=== PATIENT | male | born 1940 | race Caucasian/White ===

== ENCOUNTER → 2018-08-17 | Outpatient (CLI) | payer MEDICARE ==
--- NOTE | 2018-08-17 16:09 | CT ---
EXAMINATION TYPE: CT brain wo/w con DATE OF EXAM: 08/17/2018 COMPARISON: Prior head CT 11/28/2012 HISTORY: Possible stroke, decreased visual Field CT DLP: 2256 mGycm Automated exposure control for dose reduction was used. CONTRAST: CT scan of the head is performed without and with IV Contrast, patient injected with 100 mL of Isovue 300. FINDINGS: There is no abnormal enhancing mass or midline shift identified. The ventricles and sulci are within normal limits in size. Cortical atrophy is again noted. White matter demyelination changes are again seen. There is some encephalomalacia posterior occipital lobe on the right as on prior exam. The annabel bes are intact and the visualized sinuses are remarkable for mucosal disease within the maxillary sin uses, no air-fluid levels. No abnormal enhancement following contrast administration. Cerebral vascul ar calcifications are present. IMPRESSION: Age-related changes of atrophy and chronic small vessel ischemia. Fold infarct suspected in the occip ital lobe on the right. Sinus disease.
== END | disposition home or self-care (01) ==
LOC: RADCTMAIN 12:51
PROVIDERS: ATTEND Ophthalmology
DX: G31.1 Senile degeneration of brain, not elsewhere classified (principal); I67.82 Cerebral ischemia
CPT/HCPCS: 82565; 84520; 70470; 36415; Q9967

== ENCOUNTER 2019-03-28 06:49 | Day surgery (SDC) | payer MEDICARE ==
[2019-03-26 13:52] VITALS: BMI 26.1
[~2019-03-28 06:49] MED LIST: DEXAMETHASONE SOD PHOSPHATE 10 MG/ML 1 ML VIAL IV ONE; HEPARIN SODIUM,PORCINE 5,000 UNIT/ML 1 ML VIAL SQ ONE; HYDROmorphone 0.5 MG/0.5 ML SYRINGE IVP PRN; LACTATED RINGERS 1,000 ML IV SCH; LIDOCAINE 1% 20 ML VIAL (10MG/ML) FOR IV START INTRADERMA PRN; MIDAZOLAM 2 MG/2 ML VIAL IV PRN; ONDANSETRON 4 MG/2 ML VIAL IVP ONE; SCOPOLAMINE 1.5MG/72HR PATCH TRANSDERM ONE
[2019-03-28] MEDS ORDERED: LACTATED RINGERS 1,000 ML IV ONE (07:26)
--- NOTE | 2019-03-28 07:56 | P.GSHP ---
History of Present Illness H&P Date: 03/28/19 Chief Complaint: right inguinal hernia patient here today for right inguinal hernia repair. Bulge in the right groin has been bothering him for a while. Occasional episodes of intense pain. No nausea or vomiting. Required manual reduction by his urologist recently. Inte rested in operative repair. Past Medical History Past Medical History: Cancer, GERD/Reflux, Hyperlipidemia, Hypertension Additional Past Medical History / Comment(s): shingles few yrs ago-still w/residual leg pain, tremors, hx. prostate cancer 2004 w/radiation tx., short of breath History of Any Multi-Drug Resistant Organisms: None Reported Past Surgical History: Cholecystectomy, Coronary Bypass/CABG, Hernia Repair, Joint Replacement, Orthopedic Surgery Additional Past Surgical History / Comment(s): valve repair, right knee replaced, right shoulder surg. x 2 Past Anesthesia/Blood Transfusion Reactions: Previous Problems w/ Anesthesia Additional Past Anesthesia/Blood Transfusion Reaction / Comment(s): confusion after waking from anesthesia, day after cholycystectomy experienced low blood pressure adm to ICU received 2 units of plasma and whole blood Smoking Status: Former smoker - Past Family History Mother Family Medical History: No Reported History Medications and Allergies Home Medications Medication Instructions Recorded Confirmed Type Aspirin 325 mg PO DAILY 08/01/15 03/26/19 History Atorvastatin [Lipitor] 80 mg PO HS 08/01/15 03/26/19 History Furosemide [Lasix] 40 mg PO MOWEFR 08/01/15 03/26/19 History Krill Oil 350 mg PO DAILY 08/01/15 03/26/19 History Naproxen Sodium [Aleve] 220 mg PO BID 08/01/15 03/26/19 History Potassium Chloride [Klor-Con 20] 20 meq PO MOWEFR 08/01/15 03/26/19 History Pregabalin [Lyrica] 75 mg PO BID 08/01/15 03/26/19 History Primidone [Mysoline] 100 mg PO BID 08/01/15 03/26/19 History amLODIPine/VALSARTAN [Exforge 1 tab PO DAILY 08/01/15 03/26/19 History 5-160 mg Tablet] Latanoprost Ophth [Xalatan 0.005%] 1 drops BOTH EYES DAILY 03/26/19 03/26/19 History Metoprolol Tartrate [Lopressor] 25 mg PO BID 03/26/19 03/26/19 History Omeprazole [PriLOSEC] 40 mg PO DAILY 03/26/19 03/26/19 History Propylene Glycol/Peg 400/Pf 1 dropper BOTH EYES DAILY 03/26/19 03/26/19 History [Systane 0.3-0.4% Eye Drops] Timolol Maleate/Latanoprost/Pf 1 drop BOTH EYES DAILY 03/26/19 03/26/19 History [Timolol 0.5%-Latanopros 0.005%] Vit C/E/Zn/Coppr/Lutein/Zeaxan 2 each PO DAILY 03/26/19 03/26/19 History [Preservision Areds 2 Softgel] Allergies Allergy/AdvReac Type Severity Reaction Status Date / Time No Known Allergies Allergy Verified 03/26/19 13:36 Surgical - Exam Vital Signs Temp Pulse Resp BP Pulse Ox 997.4 F H 55 L 18 191/93 95 03/28/19 07:10 03/28/19 07:10 03/28/19 07:10 03/28/19 07:10 03/28/19 07:10 Physical exam: General: Well-developed, well-nourished HEENT: Normocephalic, sclerae nonicteric Abdomen: Nontender, nondistended, reducible right inguinal hernia Extremities: No edema Neuro: Alert and oriented Assessment and Plan (1) Inguinal hernia Narrative/Plan: Will proceed with right inguinal hernia repair at this time. Risks of bleeding, infection, recurrence, bladder and bowel injury, numbness, nerve injury were discussed with the patient. The patient understands and wishes to proceed. Current Visit: Yes Status: Acute Code(s): K40.90 - UNIL INGUINAL HERNIA, W/O OBST OR GANGR, NOT SPCF RECUR SNOMED Code(s): 349018024
[2019-03-28] MEDS ORDERED: fentaNYL (PF) 50 MCG/ML 2 ML AMP IVP ONE (08:05)
[2019-03-28] MEDS ORDERED: ePHEDrine SULFATE/0.9% NACL/PF 50 MG/5 ML SYRINGE IV ONE (08:15)
[2019-03-28] MEDS ORDERED: DEXAMETHASONE SOD PHOSPHATE 4 MG/ML 1 ML VIAL ONE (08:15)
[2019-03-28] MEDS ORDERED: ROPIVACAINE 5 MG/ML 30 ML VIAL ONE (08:15)
[2019-03-28 09:48] VITALS: TEMP 98.1
[2019-03-28] MEDS ORDERED: HYDROcodone/APAP 5-325MG 1 EACH TAB PO PRN (10:17)
[2019-03-28] MEDS ORDERED: NALOXONE 0.4 MG/ML 1 ML VIAL IV PRN (10:17)
--- NOTE | 2019-03-28 10:24 | P.OP ---
Date of Procedure: 03/28/19 Procedure(s) Performed: PREOPERATIVE DIAGNOSIS: Right inguinal hernia POSTOPERATIVE DIAGNOSIS: Same, right femoral hernia PROCEDURE: Right inguinal hernia repair with mesh, right femoral hernia repair with mesh SURGEON: Wilda EBL: Minimal ANESTHESIA: General COMPLICATIONS: None OPERATIVE PROCEDURE: Patient was placed in the operating table in the supine position and placed under general anesthesia. An oblique incision was made in the 8 groin. Dissection down through the subcutaneous tissues took place using electrocautery. The external oblique fascia was incised using a scalpel. This opening was lengthened using the Metzenbaum scissors. The spermatic cord was encircled with a [place] drain. The structures were identified and preserved. Careful dissection revealed lipoma of the cord. There was no definitive hernia sac seen. The patient did have a laxity at the direct space. No protruding hernia was seen however. A 3" x 6" Prolene mesh was cut to fit on the exposed fascia. This was sutured to the pubic tubercle the folding edge of the inguinal ligament and the conjoined tendon. A slit was created in the mesh and the mesh was wrapped around the spermatic cord and sutured back to itself. The external oblique was then reapproximated using a running 2-0 Vicryl suture. I then di ssected in the femoral space. In doing so a femoral hernia was quickly identified. This femoral hernia was dissected back to the femoral space. A portion of the preperitoneal fat was excised. The sac itself was reduced back into the preperitoneal space. The previously used Prolene mesh was utilized. This was rolled into a small plug. Is placed within the femoral space and sutured to the inguinal ligament anteriorly and Willy's ligament posteriorly. The subcutaneous tissues were reapproximated using a 3-0 Vicryl sutures. The skin was closed using 4-0 Monocryl sutures. Skin glue was then applied. DISPOSITION: Stable to recovery room
[2019-03-28 10:47] VITALS: RESP 16
[2019-03-28] MEDS ORDERED: HYDROcodone/APAP 5-325MG 1 EACH TAB PO ONE (11:13)
--- NOTE | 2019-03-28 12:48 | P.ANPRN ---
Procedure Note - Anesthesia - Nerve Block Performed Right Other (see comment) Single Time Out Performed: Yes (ilioinguinal nerve block) Date of Procedure: 03/28/19 Procedure Start Time: : Procedure Stop Time: :17 Location of Patient: PreOp Indication: Acute Post-Operative Pain, Requested by Surgeon Sedation Type: Sedate with meaningful contact maintained Preparation: Sterile Prep Position: Supine Catheter: None Needle Types: Pajunk Needle Gauge: 21 Ultrasound used to visualize needle placement: Yes Ultrasound used to observe medication spread: Yes Injectate: Other (see comment) (ropivacaine 0.375% 20 cc + decadron 4mg) Blood Aspirated: No Pain Paresthesia on Injection Noted: No Resistance on Injection: Normal Image Stored and Saved: Yes Events: Uneventful and Well Tolerated
[2019-03-28 12:57] VITALS: PULSE 65
[2019-03-28 13:01] VITALS: BP 163/87
== END 2019-03-28 13:00 | disposition home or self-care (01) ==
LOC: OR 06:49
PROVIDERS: ATTEND Surgery
DX: K40.90 Unilateral inguinal hernia, without obstruction or gangrene, not specified as recurrent (principal); K41.90 Unilateral femoral hernia, without obstruction or gangrene, not specified as recurrent; M19.90 Unspecified osteoarthritis, unspecified site; I10 Essential (primary) hypertension; E78.5 Hyperlipidemia, unspecified; K21.9 Gastro-esophageal reflux disease without esophagitis; R25.1 Tremor, unspecified; D17.79 Benign lipomatous neoplasm of other sites; Z98.890 Other specified postprocedural states; Z90.49 Acquired absence of other specified parts of digestive tract; Z86.19 Personal history of other infectious and parasitic diseases; Z95.1 Presence of aortocoronary bypass graft; Z85.46 Personal history of malignant neoplasm of prostate; Z92.3 Personal history of irradiation; Z96.651 Presence of right artificial knee joint; Z87.891 Personal history of nicotine dependence; Z79.82 Long term (current) use of aspirin; Z79.1 Long term (current) use of non-steroidal anti-inflammatories (NSAID); Z79.899 Other long term (current) drug therapy
CPT/HCPCS: 49505; 49550; 76942 ×2; 64425; 88302; C1781; J1644; J1100 ×2; J0690; J2405; J3010; J2795; 64493

== ENCOUNTER 2019-12-08 15:15 | Emergency (ER) | payer MEDICARE ==
[2019-12-08 15:23] VITALS: RESP 18; TEMP 98
--- NOTE | 2019-12-08 15:28 | ED ---
General Adult HPI - General Chief complaint: Neuro Symptoms/Deficit Stated complaint: Confusion Time Seen by Provider: 12/08/19 15:25 Source: patient, family Mode of arrival: ambulatory Limitations: language barrier - History of Present Illness Initial comments: Patient presents the ED with his for evaluation. Per , the patient has had trouble forming his words since he awoke this morning. Per , the patient did not have any issues with his speech prior to going to bed last night. also states that the patient seems to be confused at times today. states that the patient was having trouble figuring out how to place his hearing aids today. denies known trauma or injury, fever, cough or cold symptoms, vomiting, difficulty breathing, new medication use, recent change in medications, or any other symptoms or complaints. Patient denies having any pain. Patient is complaining of having trouble speaking. History from the patient is otherwise very limited secondary to expressive aphasia. states that the patient does have a history of a TIA in the past. Code stroke was called after my initial evaluation the patient. - Related Data Home Medications Medication Instructions Recorded Confirmed Aspirin 325 mg PO HS 08/01/15 12/08/19 Furosemide [Lasix] 40 mg PO MOWEFR@0900 08/01/15 12/08/19 Naproxen Sodium [Aleve] 220 mg PO BID 08/01/15 12/08/19 Potassium Chloride [Klor-Con 20] 20 meq PO MOWEFR@0900 08/01/15 12/08/19 Pregabalin [Lyrica] 75 mg PO BID 08/01/15 12/08/19 Primidone [Mysoline] 100 mg PO BID 08/01/15 12/08/19 amLODIPine/VALSARTAN [Exforge 1 tab PO DAILY 08/01/15 12/08/19 5-160 mg Tablet] Latanoprost Ophth [Xalatan 0.005%] 1 drop BOTH EYES DAILY 03/26/19 12/08/19 Metoprolol Tartrate [Lopressor] 25 mg PO BID 03/26/19 12/08/19 Omeprazole [PriLOSEC] 40 mg PO DAILY 03/26/19 12/08/19 Propylene Glycol/Peg 400/Pf 1 drop BOTH EYES HS 03/26/19 12/08/19 [Systane 0.3-0.4% Eye Drops] Vit C/E/Zn/Coppr/Lutein/Zeaxan 1 cap PO BID 03/26/19 12/08/19 [Preservision Areds 2 Softgel] Aspirin 325 mg PO ONCE 12/08/19 12/08/19 Atorvastatin [Lipitor] 80 mg PO HS 12/08/19 12/08/19 Krill/[place]-3/Dha/Epa/Lipids 1 cap PO HS 12/08/19 12/08/19 [Krill Oil 350 mg Softgel] Prevident 0.2% Oral Rinse 15 ml PO AC-LUNCH 12/08/19 12/08/19 Timolol 0.5% Ophth Soln [Timoptic 1 drop BOTH EYES DAILY 12/08/19 12/08/19 0.5% Ophth Soln] Allergies Allergy/AdvReac Type Severity Reaction Status Date / Time No Known Allergies Allergy Verified 12/08/19 16:16 Review of Systems ROS Statement: Those systems with pertinent positive or pertinent negative responses have been documented in the HPI. ROS Other: All systems not noted in ROS Statement are negative. Limitations: ROS unobtainable due to patients medical condition Past Medical History Past Medical History: Cancer, CVA/TIA, GERD/Reflux, Hyperlipidemia, Hypertension Additional Past Medical History / Comment(s): shingles few yrs ago-still w/residual leg pain, tremors, hx. prostate cancer 2004 w/radiation tx., short of breath History of Any Multi-Drug Resistant Organisms: None Reported Past Surgical History: Cholecystectomy, Coronary Bypass/CABG, Hernia Repair, Joint Replacement, Orthopedic Surgery Additional Past Surgical History / Comment(s): valve repair, right knee replaced, right shoulder surg. x 2 Past Anesthesia/Blood Transfusion Reactions: Previous Problems w/ Anesthesia Additional Past Anesthesia/Blood Transfusion Reaction / Comment(s): confusion after waking from anesthesia, day after cholycystectomy experienced low blood pressure adm to ICU received 2 units of plasma and whole blood Past Psychological History: Depression Smoking Status: Former smoker Past Alcohol Use History: Occasional Past Drug Use History: None Reported - Past Family History Mother Family Medical History: No Reported History General Exam Limitations: language barrier General appearance: alert, in no apparent distress Head exam: Present: atraumatic, normocephalic Eye exam: Present: normal appearance, PERRL, EOMI ENT exam: Present: normal oropharynx, mucous membranes moist Neck exam: Present: other (Trachea is in midline; no nuchal rigidity or meningeal signs are present on exam). Absent: tenderness, meningismus Respiratory exam: Present: normal lung sounds bilaterally. Absent: respiratory distress, wheezes, rales, rhonchi Cardiovascular Exam: Present: normal rhythm, bradycardia, normal heart sounds, other (Normal radial pulses bilaterally) GI/Abdominal exam: Present: soft. Absent: distended, tenderness, guarding Extremities exam: Present: full ROM. Absent: tenderness, pedal edema, calf tenderness Back exam: Present: normal inspection Neurological exam: Present: alert, CN II-XII intact, other (Expressive aphasia; NIH stroke scale score = 5). Absent: motor sensory deficit Skin exam: Present: warm, dry, intact, normal color Course Vital Signs 12/08/19 12/08/19 12/08/19 15:20 16:01 16:33 Temperature 98.0 F Pulse Rate 50 L 51 L 50 L Respiratory 18 18 18 Rate Blood Pressure 160/70 175/82 192/88 O2 Sat by Pulse 96 97 97 Oximetry - Reevaluation(s) Reevaluation #1: 12/08/19 15:45 Case and H&P were discussed with Dr. Schultz (neurointerventionalist). He recommends ordering a noncontrast head CT and CT angiograms of head and neck. He states that he will follow-up on the results. He has no further recommendations at this time. 12/08/19 16:05 Dr. Schultz (neurointerventionalist) states that he has reviewed the patient's imaging studies. He states that there is no large vessel occlusion. He recommends aspirin and Lipitor. He recommends transfer to [facility] given that there is no neurology coverage here this weekend. He has no further recommendations at this time. 12/08/19 16:43 Patient continues to have expressive aphasia, and his neurological exam is unchanged. Patient remains alert and breathing comfortably. Patient and are aware of the patient's test results and my discussions with Dr. Schultz as above. They both agree with transfer to [facility] at this time given that we don't have neurology coverage here at this time. 12/08/19 16:57 Case, H&P, test results, my discussions with Dr. Schultz as above and ED management were discussed with Dr. Millan (ED physician at [facility]). He accepts ambulance transfer to the [facility] ED at this time. He has no further recommendations at this time. EKG Findings - EKG Comments: EKG Findings:: Sinus bradycardia with first-degree AV block, ventricular rate of 55 bpm, occasional PVCs, leftward axis, LVH with prolonged QRS duration of 130 ms, SD interval of 206 ms, normal QT interval, no ST or T-wave abnormality Medical Decision Making - Medical Decision Making Patient has symptoms (expressive aphasia and confusion) and CT findings consistent with acute/subacute CVA. Patient is not a TPA candidate. Patient has no large vessel occlusion seen on CT angiograms. Patient was given a dose of aspirin and Lipitor and ED. Dr. Schultz (neurointerventionalist) was consulted, and he recommends transfer to [facility] for admission and further evaluation given lack of neurology coverage here at this time. Transfer to the [facility] ED was accepted by Dr. Millan (ED physician). - Lab Data Result diagrams: 12/08/19 15:42 12/08/19 15:42 Lab Results 12/08/19 12/08/19 12/08/19 Range/Units 15:28 15:42 15:42 WBC 6.4 (3.8-10.6) k/uL RBC 3.93 L (4.30-5.90) m/uL Hgb 12.8 L (13.0-17.5) gm/dL Hct 39.0 (39.0-53.0) % MCV 99.1 (80.0-100.0) fL MCH 32.5 (25.0-35.0) pg MCHC 32.8 (31.0-37.0) g/dL RDW 13.8 (11.5-15.5) % Plt Count 200 (150-450) k/uL Neutrophils % 59 % Lymphocytes % 25 % Monocytes % 8 % Eosinophils % 4 % Basophils % 1 % Neutrophils # 3.7 (1.3-7.7) k/uL Lymphocytes # 1.6 (1.0-4.8) k/uL Monocytes # 0.5 (0-1.0) k/uL Eosinophils # 0.3 (0-0.7) k/uL Basophils # 0.0 (0-0.2) k/uL PT 10.2 (9.0-12.0) sec INR 1.0 (<1.2) APTT 25.6 (22.0-30.0) sec Sodium (137-145) mmol/L Potassium (3.5-5.1) mmol/L Chloride (98-107) mmol/L Carbon Dioxide (22-30) mmol/L Anion Gap mmol/L BUN (9-20) mg/dL Creatinine (0.66-1.25) mg/dL Est GFR (CKD-EPI)AfAm (>60 ml/min/1.73 sqM) Est GFR (CKD-EPI)NonAf (>60 ml/min/1.73 sqM) Glucose (74-99) mg/dL POC Glucose (mg/dL) (75-99) mg/dL POC Glu American Studies Professor ID Calcium (8.4-10.2) mg/dL Magnesium (1.6-2.3) mg/dL Total Bilirubin (0.2-1.3) mg/dL AST (17-59) U/L ALT (4-49) U/L Alkaline Phosphatase (38-126) U/L Total Creatine Kinase (55-170) U/L CK-MB (CK-2) (0.0-2.4) ng/mL CK-MB (CK-2) Rel Index Troponin I (0.000-0.034) ng/mL NT-Pro-B Natriuret Pep 857 pg/mL Total Protein (6.3-8.2) g/dL Albumin (3.5-5.0) g/dL TSH (0.465-4.680) mIU/L Urine Color Urine Appearance (Clear) Urine pH (5.0-8.0) Ur Specific [place] (1.001-1.035) Urine Protein (Negative) Urine Glucose (UA) (Negative) Urine Ketones (Negative) Urine Blood (Negative) Urine Nitrite (Negative) Urine Bilirubin (Negative) Urine Urobilinogen (<2.0) mg/dL Ur Leukocyte Esterase (Negative) Serum Alcohol mg/dL 12/08/19 12/08/19 12/08/19 Range/Units 15:42 15:42 15:42 WBC (3.8-10.6) k/uL RBC (4.30-5.90) m/uL Hgb (13.0-17.5) gm/dL Hct (39.0-53.0) % MCV (80.0-100.0) fL MCH (25.0-35.0) pg MCHC (31.0-37.0) g/dL RDW (11.5-15.5) % Plt Count (150-450) k/uL Neutrophils % % Lymphocytes % % Monocytes % % Eosinophils % % Basophils % % Neutrophils # (1.3-7.7) k/uL Lymphocytes # (1.0-4.8) k/uL Monocytes # (0-1.0) k/uL Eosinophils # (0-0.7) k/uL Basophils # (0-0.2) k/uL PT (9.0-12.0) sec INR (<1.2) APTT (22.0-30.0) sec Sodium 133 L (137-145) mmol/L Potassium 5.1 (3.5-5.1) mmol/L Chloride 99 (98-107) mmol/L Carbon Dioxide 24 (22-30) mmol/L Anion Gap 10 mmol/L BUN 31 H (9-20) mg/dL Creatinine 1.17 (0.66-1.25) mg/dL Est GFR (CKD-EPI)AfAm 67 (>60 ml/min/1.73 sqM) Est GFR (CKD-EPI)NonAf 58 (>60 ml/min/1.73 sqM) Glucose 96 (74-99) mg/dL POC Glucose (mg/dL) (75-99) mg/dL POC Glu American Studies Professor ID Calcium 8.7 (8.4-10.2) mg/dL Magnesium 2.1 (1.6-2.3) mg/dL Total Bilirubin 0.4 (0.2-1.3) mg/dL AST 23 (17-59) U/L ALT 13 (4-49) U/L Alkaline Phosphatase 98 (38-126) U/L Total Creatine Kinase 61 (55-170) U/L CK-MB (CK-2) 0.6 (0.0-2.4) ng/mL CK-MB (CK-2) Rel Index 1.0 Troponin I <0.012 (0.000-0.034) ng/mL NT-Pro-B Natriuret Pep pg/mL Total Protein 6.7 (6.3-8.2) g/dL Albumin 4.2 (3.5-5.0) g/dL TSH 1.100 (0.465-4.680) mIU/L Urine Color Light Yellow Urine Appearance Clear (Clear) Urine pH 7.0 (5.0-8.0) Ur Specific [place] 1.014 (1.001-1.035) Urine Protein Negative (Negative) Urine Glucose (UA) Negative (Negative) Urine Ketones Negative (Negative) Urine Blood Negative (Negative) Urine Nitrite Negative (Negative) Urine Bilirubin Negative (Negative) Urine Urobilinogen <2.0 (<2.0) mg/dL Ur Leukocyte Esterase Negative (Negative) Serum Alcohol <10 mg/dL 12/08/19 Range/Units 15:54 WBC (3.8-10.6) k/uL RBC (4.30-5.90) m/uL Hgb (13.0-17.5) gm/dL Hct (39.0-53.0) % MCV (80.0-100.0) fL MCH (25.0-35.0) pg MCHC (31.0-37.0) g/dL RDW (11.5-15.5) % Plt Count (150-450) k/uL Neutrophils % % Lymphocytes % % Monocytes % % Eosinophils % % Basophils % % Neutrophils # (1.3-7.7) k/uL Lymphocytes # (1.0-4.8) k/uL Monocytes # (0-1.0) k/uL Eosinophils # (0-0.7) k/uL Basophils # (0-0.2) k/uL PT (9.0-12.0) sec INR (<1.2) APTT (22.0-30.0) sec Sodium (137-145) mmol/L Potassium (3.5-5.1) mmol/L Chloride (98-107) mmol/L Carbon Dioxide (22-30) mmol/L Anion Gap mmol/L BUN (9-20) mg/dL Creatinine (0.66-1.25) mg/dL Est GFR (CKD-EPI)AfAm (>60 ml/min/1.73 sqM) Est GFR (CKD-EPI)NonAf (>60 ml/min/1.73 sqM) Glucose (74-99) mg/dL POC Glucose (mg/dL) 101 H (75-99) mg/dL POC Glu American Studies Professor Brendan Stewart Calcium (8.4-10.2) mg/dL Magnesium (1.6-2.3) mg/dL Total Bilirubin (0.2-1.3) mg/dL AST (17-59) U/L ALT (4-49) U/L Alkaline Phosphatase (38-126) U/L Total Creatine Kinase (55-170) U/L CK-MB (CK-2) (0.0-2.4) ng/mL CK-MB (CK-2) Rel Index Troponin I (0.000-0.034) ng/mL NT-Pro-B Natriuret Pep pg/mL Total Protein (6.3-8.2) g/dL Albumin (3.5-5.0) g/dL TSH (0.465-4.680) mIU/L Urine Color Urine Appearance (Clear) Urine pH (5.0-8.0) Ur Specific [place] (1.001-1.035) Urine Protein (Negative) Urine Glucose (UA) (Negative) Urine Ketones (Negative) Urine Blood (Negative) Urine Nitrite (Negative) Urine Bilirubin (Negative) Urine Urobilinogen (<2.0) mg/dL Ur Leukocyte Esterase (Negative) Serum Alcohol mg/dL - Radiology Data Radiology results: report reviewed (Noncontrast head CT report: Cerebral atrophy, old right occipital lobe cortical infarct unchanged, there is evidence of subacute left posterior temporal lobe cortical infarct which is a change compared to old CT scan; CT angiogram head and neck report: Atheromatous changes, no evidence of hemodynamic stenosis of the carotid or vertebral arteries, no significant intracranial angiographic abnormality), image reviewed (Chest x-ray shows cardiomegaly and mild bilateral pulmonary vascular congestion) Disposition Clinical Impression: Expressive aphasia, Confusion, CVA (cerebral vascular accident) Disposition: OTHER INSTITUTION NOT DEFINED Condition: Stable Is patient prescribed a controlled substance at d/c from ED?: No Referrals: Gerald Garza MD [Primary Care Provider] - 1-2 days Time of Disposition: 16:57 - Out of Hospital Transfer - Req. Specs Out of Hospital Transfer - Requested Specifics: Other Emergency Center ([facility])
[2019-12-08 15:55] LABS: Basophils % (A) 1 %; Eosinophils # (A) 0.3 k/uL (0-0.7); Eosinophils % (A) 4 %; HGB 12.8 gm/dL (13.0-17.5); Lymphocytes # (A) 1.6 k/uL (1.0-4.8); Lymphocytes % (A) 25 %; MCH 32.5 pg (25.0-35.0); MCHC 32.8 g/dL (31.0-37.0); MCV 99.1 fL (80.0-100.0); Mean Platelet Volume 7.8; Monocytes # (A) 0.5 k/uL (0-1.0); Monocytes % (A) 8 %; Neutrophils # (A) 3.7 k/uL (1.3-7.7); Neutrophils % (A) 59 %; Platelet Count 200 k/uL (150-450); RBC 3.93 m/uL (4.30-5.90); RDW 13.8 % (11.5-15.5); WBC 6.4 k/uL (3.8-10.6)
[2019-12-08 15:55] LABS: Glucose,Whole Blood 101 mg/dL (75-99)
[2019-12-08 16:03] LABS: Partial Thromboplastin Time 25.6 sec (22.0-30.0); Prothrombin Time 10.2 sec (9.0-12.0)
--- NOTE | 2019-12-08 16:04 | CT ---
EXAMINATION TYPE: CT brain wo con for TPA DATE OF EXAM: 12/08/2019 COMPARISON: August 17, 2018 HISTORY: Neuro deficits. CT DLP: 1175.8 mGycm Automated exposure control for dose reduction was used. There is cerebral cortical atrophy. There is no mass effect nor midline shift. There is no sign of in tracranial hemorrhage. There is grade white matter hypodensity left posterior temporal lobe. There is also cortical hypodensity that appears old in the right occipital lobe. The calvarium is intact. The re is enlargement of the ventricles. IMPRESSION: Cerebral atrophy. 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 There is evidence of subacute left posterior temporal lobe cortical infarct which is a change compare d to old CT scan.
[2019-12-08 16:05] LABS: Creatine Kinase 61 U/L (55-170)
[2019-12-08 16:06] LABS: ALT 13 U/L (4-49); AST 23 U/L (17-59); African American GFR (CKD) 67 (>60 ml/min/1.73 sqM); Albumin 4.2 g/dL (3.5-5.0); Alcohol <10 mg/dL; Alkaline Phosphatase 98 U/L (38-126); Anion Gap 10 mmol/L; Blood Urea Nitrogen 31 mg/dL (9-20); Calcium 8.7 mg/dL (8.4-10.2); Carbon Dioxide 24 mmol/L (22-30); Chloride 99 mmol/L (98-107); Glucose 96 mg/dL (74-99); Magnesium 2.1 mg/dL (1.6-2.3); Non-African American GFR(CKD) 58 (>60 ml/min/1.73 sqM); Potassium 5.1 mmol/L (3.5-5.1); Sodium 133 mmol/L (137-145); Total Bilirubin 0.4 mg/dL (0.2-1.3); Total Protein 6.7 g/dL (6.3-8.2)
[2019-12-08] MEDS ORDERED: ATORVASTATIN 80 MG TAB PO STA (16:08)
[2019-12-08] MEDS ORDERED: ASPIRIN 81 MG PO STA (16:08)
[2019-12-08 16:17] LABS: Creatine Kinase MB 0.6 ng/mL (0.0-2.4); Troponin I <0.012 ng/mL (0.000-0.034)
--- NOTE | 2019-12-08 16:30 | XR ---
EXAMINATION TYPE: XR chest 2V DATE OF EXAM: 12/08/2019 COMPARISON: 03/14/2019 HISTORY: Altered mental status. TECHNIQUE: FINDINGS: Heart is enlarged. There is mild pulmonary vascular congestion. There is bilateral extensiv e calcified pleural plaque. Thoracic aorta is atheromatous. There is right shoulder prosthesis. There is no definite pleural effusion. IMPRESSION: There is new mild pulmonary congestion compared to old exam and consistent with mild hear t failure. Stable calcified pleural plaque. Heart size is increased compared to old exam.
[2019-12-08 16:35] VITALS: PULSE 50
[2019-12-08 16:37] LABS: Appearance,Urine Clear (Clear); Bilirubin,Urine Negative (Negative); Blood,Urine Negative (Negative); Color,Urine Light Yellow; Glucose,Urine (UA) Negative (Negative); Ketones,Urine Negative (Negative); Leukocyte Esterase,Urine Negative (Negative); Nitrite,Urine Negative (Negative); Protein,Urine Negative (Negative); Specific Gravity,Urine 1.014 (1.001-1.035); Urobilinogen,Urine <2.0 mg/dL (<2.0)
--- NOTE | 2019-12-08 16:43 | CT ---
EXAMINATION TYPE: CT angio head neck DATE OF EXAM: 12/08/2019 COMPARISON: None HISTORY: Neuro deficits. CT DLP: 478.7 mGycm Automated exposure control for dose reduction was used. CONTRAST: Performed with IV Contrast, patient injected with 65ml mL of Isovue 370. Images were obtained from the aortic arch to the vertex of the brain with IV contrast. There are 3-D post processed images. The thoracic aorta is atheromatous and ectatic. There is no dissection. Aortic arch measures 3.7 cm. There is arterial flow in the subclavian arteries bilaterally. There is arterial flow in the common i nternal and external carotid arteries bilaterally. There is arterial flow in both vertebral arteries. Right vertebral artery is larger than the left. Basilar artery fills mostly from the right side. The re is arterial flow in the vertebrobasilar artery system. There is plaque formation at the carotid artery bifurcations with calcification. There is estimated 3 5% stenosis of the proximal right internal carotid artery and less than 20% stenosis proximal left in ternal carotid artery. There is no evidence of carotid or vertebral artery aneurysm or dissection. There is arterial flow in the anterior middle and posterior cerebral arteries. There is no mass effec t. There is no evidence of intracranial aneurysm or neovascularity. There is normal contrast opacific ation of the venous sinuses. I see no evidence of intracranial arterial stenosis. There is extensive calcification of the intracranial internal carotid arteries. There is no mass effect. The right poste rior cerebral artery appears to fill mostly through the right posterior communicating artery. IMPRESSION: Atheromatous changes. No evidence of hemodynamic stenosis of the carotid or vertebral arteries. No si gnificant intracranial angiographic abnormality.
[2019-12-08 17:14] VITALS: BP 194/90
[2019-12-08 23:37] LABS: Urine Alcohol Negative (Negative); Urine Barbiturate Positive (Negative); Urine Cocaine Negative (Negative); Urine Methadone Negative (Negative); Urine Opiates Negative (Negative); Urine Phencyclidine Negative (Negative)
== END 2019-12-08 17:40 | disposition other institution (70) ==
LOC: EC 15:15
DX: I63.9 Cerebral infarction, unspecified (principal); R47.01 Aphasia; R41.0 Disorientation, unspecified; K21.9 Gastro-esophageal reflux disease without esophagitis; E78.5 Hyperlipidemia, unspecified; I10 Essential (primary) hypertension; F32.9 Major depressive disorder, single episode, unspecified; Z79.82 Long term (current) use of aspirin; Z79.899 Other long term (current) drug therapy; Z85.46 Personal history of malignant neoplasm of prostate; Z95.1 Presence of aortocoronary bypass graft; Z92.3 Personal history of irradiation; Z96.651 Presence of right artificial knee joint; Z87.891 Personal history of nicotine dependence
CPT/HCPCS: 36415; 93005; 83880; 80053; 82550; 82553; 83735; 84443; 84484; 85025; 85610; 85730; 81003; 80306; 71046; 70496; 70450; 70498; 99285; G0480; Q9967; 80320

== ENCOUNTER → 2021-03-04 | Outpatient (CLI) | payer MEDICARE | END | disposition home or self-care (01) | LOC: LABWHC1 11:55 | PROVIDERS: ATTEND Internal Medicine | DX: U07.1 COVID-19 (principal) | CPT/HCPCS: U0003; C9803 ==

== ENCOUNTER → 2021-08-28 | Outpatient (CLI) | payer MEDICARE ==
--- NOTE | 2021-08-28 13:26 | CT ---
EXAMINATION TYPE: CT soft tissue neck wo con DATE OF EXAM: 08/28/2021 HISTORY: Dysphonia COMPARISON: None CT DLP: 271.00 mGycm. Automated Exposure Control for Dose Reduction was Utilized. TECHNIQUE: Multiple axial images are obtained through the neck without the use of IV contrast jennifer sy. Coronal and sagittal reconstructions were generated and reviewed. Lack of contrast limits the evaluation. FINDINGS: There is mild asymmetry within the thyroid gland with the right lobe larger than the left lobe likely secondary to a nodule which is not well defined. Correlate with thyroid ultrasound. The larynx including the thyroid, arytenoid and cricoid cartilages are normal and symmetric. The vocal cords are normal and symmetric there is no evidence of laryngeal mass. The tongue, tongue base, epiglottis, aryepiglottic folds and piriform sinuses as well as the vallecul a are normal and symmetric without mass. The parotid and submandibular glands are normal and symmetric. There is no pharyngeal or parapharyngeal mass. There is no adenopathy within the neck. There is marked calcification in the carotid bifurcations. There are mild chronic inflammatory changes in the visualized maxillary sinuses. IMPRESSION: Somewhat limited exam due to lack of IV contrast but no laryngeal, pharyngeal or tongue mass is ident ified. There is no adenopathy or abscess within the soft tissues of the neck.
== END | disposition home or self-care (01) ==
LOC: RADCTMAIN 11:23
PROVIDERS: ATTEND Otolaryngology
DX: R49.0 Dysphonia (principal)
CPT/HCPCS: 36415; 70490; 82565; 84520

== ENCOUNTER → 2021-10-21 | Outpatient (CLI) | payer MEDICARE ==
--- NOTE | 2021-10-22 13:54 | MR ---
EXAMINATION TYPE: MR neck wo/w con DATE OF EXAM: 10/21/2021 COMPARISON: Correlation CT 08/28/2021 HISTORY: 81-year-old male J38.01, Vocal cord paralysis, soft tissue asymmetry Technique: Multiplanar, multisequence images of the neck were obtained before and after administratio n of 6.5 mL intravenous Gadavist gadolinium contrast. FINDINGS: The exam is motion degraded. The visualized brain shows moderate cerebral atrophy and encephalomalacia relating to posterior left parietal lobe infarct. Moderate lobular mucosal thickening with mucosal retention cysts floor of the right maxillary sinus. Focal narrowing of the airway just above the level of the vocal folds near the level of the alaniz tow ards. There is circumferential abnormal signal here on T2 fat sat sequence, referred to series 1301 i mage 18. Heterogeneous enhancement and thickening seems to extend slightly towards the left along the lower aryepiglottic fold asymmetrically effacing the left piriform sinus. This measures approximately 2.8 cm wide extending approximately 1.5 cm craniocaudal, bounded anterior ly by the thyroid cartilage. Again, the degree of motion artifact makes assessment limited. No obvious cervical lymphadenopathy appreciated. Artifact related to patient's median sternotomy wires. IMPRESSION: Abnormal signal, heterogeneous enhancement, and circumferential soft tissue asymmetrically greater on the left involving the mucosal space just above the true cords and extending into the lower left adam epiglottic fold. This results in focal narrowing of the airway to approximately 5 mm and measures donna roximately 2.4 cm wide and 1.5 cm craniocaudal. Limited assessment due to motion degradation. No obvi ous cervical lymphadenopathy.
== END | disposition home or self-care (01) ==
LOC: RADMRIMAIN 14:57
PROVIDERS: ATTEND Otolaryngology
DX: J38.01 Paralysis of vocal cords and larynx, unilateral (principal)
CPT/HCPCS: 70543; A9585

== ENCOUNTER 2022-01-22 14:15 | Inpatient (IN) | payer MEDICARE ==
--- NOTE | 2022-01-22 15:36 | ED ---
General Adult HPI - General Chief complaint: Recheck/Abnormal Lab/Rx Stated complaint: Abnormal Labs Time Seen by Provider: 01/22/22 15:16 Source: EMS Mode of arrival: EMS Limitations: altered mental status - History of Present Illness Initial comments: Patient is an 81-year-old male with past medical history remarkable for atrial fibrillation on anticoagulation, valve repair surgery, throat cancer with paralyzed vocal cords he recently had a trach placed 3 months ago. Patient also has a history of CHF, and is currently on a soft food diet with supplemental PEG tube feeds who presents emergency department after being sent in by his PCP for hyponatremia. Per triage, it was 121. We do not have access to the laboratory results. Benadryl was done outpatient. For the last few days, patient has been having somewhat increased noisy breathing, and sounds congested. Mild cough that is nonproductive. No rhinorrhea. No sore throat. No fevers. No headaches. No abdominal pain, chest pain. No nausea or vomiting. No diarrhea. No urinary complaints. Per patient's , patient has had less food intake over this time but he is still receiving is supplemental tube feeds. He otherwise is acting normally. For his throat cancer, they're currently in the process of obtaining an oncologist. No current chemoradiation. No current immunotherapy. Presents for further evaluation at this time. Was vaccinated for Covid. Was placed on Augmentin by his PCP 2-3 days ago as well as prednisone. Seems to be having minimal improvement.Denies worsening orthopnea. Does have some exertional dyspnea that he is uncertain if it is new or not. En dorses slightly worsening lower extremity edema. Denies any PND.Patient was seen by the specialist perform the trach earlier this week her late last week and they did replace the trach without any complications per Patient's . Patient does have a difficult time speaking due to the trach and paralyzed vocal cords. He can answer questions. History is obtained with help of patient's . - Related Data Home Medications Medication Instructions Recorded Confirmed Furosemide [Lasix] 20 mg PEG/G-TUBE DAILY 08/01/15 01/22/22 Potassium Chloride [Klor-Con 20] 20 meq PEG/G-TUBE DAILY 08/01/15 01/22/22 Pregabalin [Lyrica] 75 mg PO BID 08/01/15 01/22/22 Primidone [Mysoline] 100 mg PEG/G-TUBE HS 08/01/15 01/22/22 Latanoprost Ophth [Xalatan 0.005%] 1 drop BOTH EYES DAILY 03/26/19 01/22/22 Omeprazole [PriLOSEC] 40 mg PO DAILY 03/26/19 01/22/22 Atorvastatin [Lipitor] 80 mg PEG/G-TUBE HS 12/08/19 01/22/22 Timolol 0.5% Ophth Soln [Timoptic 1 drop BOTH EYES DAILY 12/08/19 01/22/22 0.5% Ophth Soln] ALPRAZolam [Xanax] 0.25 mg PEG/G-TUBE BID PRN 01/22/22 01/22/22 ALPRAZolam [Xanax] 0.25 mg PEG/G-TUBE HS 01/22/22 01/22/22 Amiodarone [Cordarone] 200 mg PEG/G-TUBE DAILY 01/22/22 01/22/22 Amoxic-Pot Clav 875-125Mg 1 tab PEG/G-TUBE BID 01/22/22 01/22/22 [Augmentin 875-125] Apixaban [Eliquis] 5 mg PEG/G-TUBE BID 01/22/22 01/22/22 Primidone [Mysoline] 50 mg PEG/G-TUBE DAILY 01/22/22 01/22/22 Propranolol [Inderal] 20 mg PEG/G-TUBE BID 01/22/22 01/22/22 Tamsulosin HCl [Flomax] 0.4 mg PO HS 01/22/22 01/22/22 predniSONE See Taper PEG/G-TUBE DIRECTED 01/22/22 01/22/22 Allergies Allergy/AdvReac Type Severity Reaction Status Date / Time No Known Allergies Allergy Verified 01/22/22 15:13 Review of Systems ROS Statement: Those systems with pertinent positive or pertinent negative responses have been documented in the HPI. Review of Systems: CONST: Denies fever EYES: Denies blurry vision ENT: Denies nasal congestion C/V: Denies Chest pain RESP: Endorses mild worsening shortness of breath GI: Denies abdominal pain : Denies dysuria SKIN: Denies rash. MSK: Denies joint pain. NEURO: Denies headache ROS Other: All systems not noted in ROS Statement are negative. Past Medical History Past Medical History: Cancer, CVA/TIA, GERD/Reflux, Hyperlipidemia, Hypertension Additional Past Medical History / Comment(s): shingles few yrs ago-still w/residual leg pain, tremors, hx. prostate cancer 2004 w/radiation tx., short of breath History of Any Multi-Drug Resistant Organisms: None Reported Past Surgical History: Cholecystectomy, Coronary Bypass/CABG, Hernia Repair, Joint Replacement, Orthopedic Surgery Additional Past Surgical History / Comment(s): valve repair, right knee replaced, right shoulder surg. x 2 Past Anesthesia/Blood Transfusion Reactions: Previous Problems w/ Anesthesia Additional Past Anesthesia/Blood Transfusion Reaction / Comment(s): confusion after waking from anesthesia, day after cholycystectomy experienced low blood pressure adm to ICU received 2 units of plasma and whole blood Past Psychological History: Depression Smoking Status: Former smoker Past Alcohol Use History: Occasional Past Drug Use History: None Reported - Past Family History Mother Family Medical History: No Reported History General Exam - General Exam Comments Initial Comments: General: Appears in no acute distress. HEAD: Normal with no signs of head trauma. EYES: PERRLA, EOMI, conjunctiva normal, no discharge. ENT: Hearing grossly intact, normal oropharynx. Trach site appears clean, no discharge, no mucus. No erythema. RESPIRATORY: Nausea and lung sounds, however difficult to ascertain if this is projected sounds from upper airway. Does have some mild noisy breathing. No stridor auscultated. No obvious discharge from the trach site Mild hypoxia. No increased work of breathing. C/V: Irregular rate and rhythm. S1 and S2 auscultated, 1+ symmetrical pitting edema in bilateral lower extremities up to the level of the midshin. Edema, peripheral pulses 2+ and intact throughout ABD: Abd is soft, nontender, nondistended. PEG tube site is clean. No erythema. No concern for infection. EXT: Normal range of motion, no obvious deformity SKIN: No rashes or lesions observed on exposed skin. NEURO: Alert and oriented x 4. Cranial nerves II-XII intact. No focal sensory or strength deficits. Limitations: altered mental status Course Vital Signs 01/22/22 01/22/22 01/22/22 15:10 16:43 18:09 Temperature 98.6 F Pulse Rate 50 L 85 Respiratory 22 16 Rate Blood Pressure 147/81 137/105 O2 Sat by Pulse 92 L 96 Oximetry Fraction of 28 Inspired Oxygen (FIO2) 01/22/22 01/22/22 19:48 20:13 Temperature Pulse Rate 80 Respiratory 16 Rate Blood Pressure 139/74 O2 Sat by Pulse 94 L 96 Oximetry Fraction of 28 Inspired Oxygen (FIO2) Medical Decision Making - Medical Decision Making Based on the patient's presentation and physical exam, I'm concerned for hyponatremia, as well as lisinopril but also concern for possible infectious etiology or cardiac etiology for his current symptoms. He does have some mild signs of congestive heart failure with a history of congestive heart failure. Is also having some upper respiratory symptoms as well. We will obtain a cardiopulmonary and infectious labs. Patient was in agreement with this plan. We will hold IV fluids at this time over concern for possible CHF as well as his hyponatremia, as we do not know his current level. EKG and chest x-ray will be obtained. Covid swab will be obtained. Patient and patient's are in agreement this plan. We will have respiratory therapy come suction his trach site and send sputum samples. Vital signs show mild hypoxia, otherwise appeared to be within normal limits. Respiratory therapy did obtain a whitish sputum. No gross purulence. Was sent for culture. Vital signs are within normal limits. Occasionally patient's atrial fibrillation does increase to 128 bpm, however he is mostly between 90 and 100. We'll continue to monitor. Has been compliant with medications. EKG shows atrial fibrillation but no signs of acute ischemia. Chest x-ray reveals bilateral pulmonary edema concerning for congestive heart failure. Laboratory studies are remarkable for a very mild leukocytosis of 11.1. The globe in his 10.7, which is chronic for the patient. Lavatory studies are remarkable for a hyponatremia of 120, hypochloremia of 83, as well as a mild hyperkalemia 5.2. There are no EKG changes with the slight hyperkalemia. Lactic acid is within normal limits at 1.0. BNP is elevated to 14,900. Troponin is slightly elevated to 0.07, likely secondary to CHF exacerbation. He is having no active chest pain. Patient did receive crushed aspirin through his PEG tube at this time. Patient appears to be having a CHF exacerbation, with increased exertional dyspnea, nonproductive cough, lower extremity edema, as well as chest x-ray findings and elevated BNP with a known history of CHF. Patient does have slight hypoxia down to 92-94%. Covid swab is negative. Urinalysis still pending at this time. I updated the patient's family and the patient. He will be admitted to the hospital to the stepdown floor. We'll continue his antibiotic that was prescribed outpatient by Dr. Garza. He is consulted as well. Dr. Paul's patients are admitted to the [facility]. I spoke with Dr. Swann of nephrology and consulted her due to the hyponatremia, as well as CHF exacerbation for the correct management, as we cannot start the patient on IV fluids at this time due to the chf exacerbation. . She instructed me to provide the patient with a 1 time dose of 60 mg IV Lasix. We will repeat electrolytes including sodium and 4 hours. She'll be notified of the results for further management. I conveyed these instructions via nursing communication order as well as verbally face to face with nursing staff. Orders were placed.We will resume the patient's home medications otherwise. Cardiology will be consulted for the elevated troponin, CHF exacerbation, and we will trend the troponin and order an echo. I spoke with CHERRIE Palomo of [facility] who accepted the patient. Patient was therefore admitted in serious condition. - Lab Data Result diagrams: 01/22/22 15:42 01/22/22 15:42 Lab Results 01/22/22 01/22/22 01/22/22 Range/Units 15:42 15:42 15:42 WBC 11.1 H (3.8-10.6) k/uL RBC 3.22 L (4.30-5.90) m/uL Hgb 10.7 L (13.0-17.5) gm/dL Hct 31.1 L (39.0-53.0) % MCV 96.4 (80.0-100.0) fL MCH 33.1 (25.0-35.0) pg MCHC 34.4 (31.0-37.0) g/dL RDW 14.6 (11.5-15.5) % Plt Count 376 (150-450) k/uL MPV 7.8 Neutrophils % 87 % Lymphocytes % 8 % Monocytes % 4 % Eosinophils % 0 % Basophils % 0 % Neutrophils # 9.6 H (1.3-7.7) k/uL Lymphocytes # 0.8 L (1.0-4.8) k/uL Monocytes # 0.4 (0-1.0) k/uL Eosinophils # 0.0 (0-0.7) k/uL Basophils # 0.0 (0-0.2) k/uL PT 10.6 (9.0-12.0) sec INR 1.0 (<1.2) APTT 27.6 (22.0-30.0) sec Sodium 120 L (137-145) mmol/L Potassium 5.2 H (3.5-5.1) mmol/L Chloride 83 L (98-107) mmol/L Carbon Dioxide 25 (22-30) mmol/L Anion Gap 12 mmol/L BUN 35 H (9-20) mg/dL Creatinine 0.79 (0.66-1.25) mg/dL Est GFR (CKD-EPI)AfAm >90 (>60 ml/min/1.73 sqM) Est GFR (CKD-EPI)NonAf 83 (>60 ml/min/1.73 sqM) Glucose 124 H (74-99) mg/dL Plasma Lactic Acid Norman (0.7-2.0) mmol/L Calcium 8.8 (8.4-10.2) mg/dL Total Bilirubin 0.3 (0.2-1.3) mg/dL AST 34 (17-59) U/L ALT 36 (4-49) U/L Alkaline Phosphatase 154 H (38-126) U/L Troponin I (0.000-0.034) ng/mL NT-Pro-B Natriuret Pep pg/mL Total Protein 6.4 (6.3-8.2) g/dL Albumin 3.5 (3.5-5.0) g/dL Coronavirus (PCR) (Not Detectd) 01/22/22 01/22/22 01/22/22 Range/Units 15:42 15:42 15:42 WBC (3.8-10.6) k/uL RBC (4.30-5.90) m/uL Hgb (13.0-17.5) gm/dL Hct (39.0-53.0) % MCV (80.0-100.0) fL MCH (25.0-35.0) pg MCHC (31.0-37.0) g/dL RDW (11.5-15.5) % Plt Count (150-450) k/uL MPV Neutrophils % % Lymphocytes % % Monocytes % % Eosinophils % % Basophils % % Neutrophils # (1.3-7.7) k/uL Lymphocytes # (1.0-4.8) k/uL Monocytes # (0-1.0) k/uL Eosinophils # (0-0.7) k/uL Basophils # (0-0.2) k/uL PT (9.0-12.0) sec INR (<1.2) APTT (22.0-30.0) sec Sodium (137-145) mmol/L Potassium (3.5-5.1) mmol/L Chloride (98-107) mmol/L Carbon Dioxide (22-30) mmol/L Anion Gap mmol/L BUN (9-20) mg/dL Creatinine (0.66-1.25) mg/dL Est GFR (CKD-EPI)AfAm (>60 ml/min/1.73 sqM) Est GFR (CKD-EPI)NonAf (>60 ml/min/1.73 sqM) Glucose (74-99) mg/dL Plasma Lactic Acid Norman 1.0 (0.7-2.0) mmol/L Calcium (8.4-10.2) mg/dL Total Bilirubin (0.2-1.3) mg/dL AST (17-59) U/L ALT (4-49) U/L Alkaline Phosphatase (38-126) U/L Troponin I 0.070 H* (0.000-0.034) ng/mL NT-Pro-B Natriuret Pep 84330 pg/mL Total Protein (6.3-8.2) g/dL Albumin (3.5-5.0) g/dL Coronavirus (PCR) (Not Detectd) 01/22/22 Range/Units 15:42 WBC (3.8-10.6) k/uL RBC (4.30-5.90) m/uL Hgb (13.0-17.5) gm/dL Hct (39.0-53.0) % MCV (80.0-100.0) fL MCH (25.0-35.0) pg MCHC (31.0-37.0) g/dL RDW (11.5-15.5) % Plt Count (150-450) k/uL MPV Neutrophils % % Lymphocytes % % Monocytes % % Eosinophils % % Basophils % % Neutrophils # (1.3-7.7) k/uL Lymphocytes # (1.0-4.8) k/uL Monocytes # (0-1.0) k/uL Eosinophils # (0-0.7) k/uL Basophils # (0-0.2) k/uL PT (9.0-12.0) sec INR (<1.2) APTT (22.0-30.0) sec Sodium (137-145) mmol/L Potassium (3.5-5.1) mmol/L Chloride (98-107) mmol/L Carbon Dioxide (22-30) mmol/L Anion Gap mmol/L BUN (9-20) mg/dL Creatinine (0.66-1.25) mg/dL Est GFR (CKD-EPI)AfAm (>60 ml/min/1.73 sqM) Est GFR (CKD-EPI)NonAf (>60 ml/min/1.73 sqM) Glucose (74-99) mg/dL Plasma Lactic Acid Norman (0.7-2.0) mmol/L Calcium (8.4-10.2) mg/dL Total Bilirubin (0.2-1.3) mg/dL AST (17-59) U/L ALT (4-49) U/L Alkaline Phosphatase (38-126) U/L Troponin I (0.000-0.034) ng/mL NT-Pro-B Natriuret Pep pg/mL Total Protein (6.3-8.2) g/dL Albumin (3.5-5.0) g/dL Coronavirus (PCR) Not Detected (Not Detectd) - EKG Data -: EKG Interpreted by Me EKG Comments: 12-lead Electrocardiogram Interpretation Note EKG was reviewed and interpreted by myself. 12-lead ECG performed at 1617 is interpreted by me as revealing atrial flutter/fibrillation at a rate of 120 beats per minute. Left axis deviation. QRS duration of 130 ms, QTc is 412 ms.. There were no ST or T wave abnormalities to suggest myocardial ischemia or injury. R wave progression across the precordium was satisfactory. By my interpretation this EKG is non-diagnostic for acute ischemia. Critical Care Time Critical Care Time: Yes Total Critical Care Time: 35 Critical Care Time: Upon my evaluation, this patient had a high probability of imminent or life- threatening deterioration due to hyponatremia, atrial fibrillation, CHF exacerbation, which required my direct attention, intervention, and personal management. I have personally provided 35 minutes of critical care time exclusive of time spent on separately billable procedures. Time includes review of laboratory data, radiology results, discussion with consultants, and monitoring for potential decompensation. Interventions were performed as documented in my note. Disposition Clinical Impression: Hyponatremia, CHF exacerbation, Elevated troponin, Tracheostomy dependent Disposition: ADMITTED IP TO THIS HOSP Condition: Serious Time of Disposition: 17:00
[2022-01-22 15:52] LABS: Basophils % (A) 0 %; Eosinophils % (A) 0 %; HCT 31.1 % (39.0-53.0); HGB 10.7 gm/dL (13.0-17.5); Lymphocytes # (A) 0.8 k/uL (1.0-4.8); Lymphocytes % (A) 8 %; MCH 33.1 pg (25.0-35.0); MCHC 34.4 g/dL (31.0-37.0); MCV 96.4 fL (80.0-100.0); Mean Platelet Volume 7.8; Monocytes # (A) 0.4 k/uL (0-1.0); Monocytes % (A) 4 %; Neutrophils # (A) 9.6 k/uL (1.3-7.7); Neutrophils % (A) 87 %; Platelet Count 376 k/uL (150-450); RBC 3.22 m/uL (4.30-5.90); RDW 14.6 % (11.5-15.5); WBC 11.1 k/uL (3.8-10.6)
[2022-01-22 16:03] LABS: Partial Thromboplastin Time 27.6 sec (22.0-30.0); Prothrombin Time 10.6 sec (9.0-12.0)
[2022-01-22 16:08] LABS: ALT 36 U/L (4-49); AST 34 U/L (17-59); African American GFR (CKD) >90 (>60 ml/min/1.73 sqM); Albumin 3.5 g/dL (3.5-5.0); Alkaline Phosphatase 154 U/L (38-126); Anion Gap 12 mmol/L; Blood Urea Nitrogen 35 mg/dL (9-20); Calcium 8.8 mg/dL (8.4-10.2); Carbon Dioxide 25 mmol/L (22-30); Chloride 83 mmol/L (98-107); Glucose 124 mg/dL (74-99); Non-African American GFR(CKD) 83 (>60 ml/min/1.73 sqM); Potassium 5.2 mmol/L (3.5-5.1); Sodium 120 mmol/L (137-145); Total Bilirubin 0.3 mg/dL (0.2-1.3); Total Protein 6.4 g/dL (6.3-8.2)
--- NOTE | 2022-01-22 16:55 | XR ---
EXAMINATION TYPE: XR chest 2V DATE OF EXAM: 01/22/2022 COMPARISON: Yesterday HISTORY: Short of breath TECHNIQUE: FINDINGS: Heart is enlarged. There is some pulmonary vascular congestion. There is extensive calcifie d pleural plaque over the left and right lung garnett. There is slight blunting of the costophrenic an gles. There is right shoulder prosthesis. There is pulmonary interstitial and airspace edema IMPRESSION: Extensive calcified pleural plaque. There is evidence of congestive heart failure with pu lmonary edema which is mostly new compared to yesterday small pleural effusions are unchanged.
[2022-01-22] MEDS ORDERED: METOPROLOL TARTRATE 25 MG TAB PO STA (17:07)
[2022-01-22] MEDS ORDERED: FUROSEMIDE 10 MG/ML 10 ML VIAL IV STA (17:13)
[2022-01-22] MEDS ORDERED: NALOXONE 0.4 MG/ML 1 ML VIAL IV PRN (17:35)
[2022-01-22] MEDS ORDERED: ALPRAZolam 0.25 MG TAB PEG/G-TUBE PRN (17:38)
[2022-01-22] MEDS ORDERED: ASPIRIN 81 MG PEG/G-TUBE STA (17:40)
[2022-01-22] MEDS ORDERED: PROPRANOLOL 20 MG TAB PEG/G-TUBE SCH (21:00)
[2022-01-22] MEDS: ALPRAZolam 0.25 MG TAB PEG/G-TUBE SCH (21:29)
[2022-01-22] MEDS: APIXABAN 5 MG TAB PEG/G-TUBE SCH (21:30)
[2022-01-22] MEDS: ATORVASTATIN 80 MG TAB PEG/G-TUBE SCH (21:30)
[2022-01-22] MEDS: PRIMIDONE 50 MG TAB PEG/G-TUBE SCH (21:30)
[2022-01-22] MEDS: TAMSULOSIN 0.4 MG CAP.ER.24H PO SCH (21:30)
[2022-01-22] MEDS: PREGABALIN 75 MG CAP PO SCH (21:30)
[2022-01-22] MEDS: AMOXIC-POT CLAV 200-28.5MG/5ML 100 ML BOTTLE PEG/G-TUBE SCH (21:30)
[2022-01-22 23:12] LABS: Appearance,Urine Clear (Clear); Bilirubin,Urine Negative (Negative); Blood,Urine Negative (Negative); Color,Urine Colorless; Glucose,Urine (UA) Negative (Negative); Ketones,Urine Negative (Negative); Leukocyte Esterase,Urine Negative (Negative); Nitrite,Urine Negative (Negative); Protein,Urine Negative (Negative); Specific Gravity,Urine 1.004 (1.001-1.035); Urobilinogen,Urine <2.0 mg/dL (<2.0)
[2022-01-22 23:22] LABS: African American GFR (CKD) >90 (>60 ml/min/1.73 sqM); Anion Gap 7 mmol/L; Blood Urea Nitrogen 36 mg/dL (9-20); Calcium 8.3 mg/dL (8.4-10.2); Carbon Dioxide 30 mmol/L (22-30); Chloride 82 mmol/L (98-107); Glucose 90 mg/dL (74-99); Non-African American GFR(CKD) 84 (>60 ml/min/1.73 sqM); Potassium 4.4 mmol/L (3.5-5.1)
[2022-01-22 23:29] LABS: Sodium 119 mmol/L (137-145)
[2022-01-23] MEDS: PANTOPRAZOLE 40 MG TABLET PO SCH (06:29)
--- NOTE | 2022-01-23 07:06 | P.CRDCN ---
History of Present Illness Consult date: 01/23/22 Chief complaint: CHF History of present illness: This is an 81-year-old gentleman with an extensive medical history consistent of CAD and status post CABG with unknown details at this point, permanent atrial fibrillation on oral anticoagulation, hypertension, dyslipidemia, history of throat cancer seems to be active at this point the patient currently have trach tube, as well as multiple comorbid conditions as well as multiple comorbid condi tions. We requested to see the patient as a consult for further evaluation of congestive heart failure. The patient is extremely poor historian and he was extremely lethargic. The history was taken from the chart as well as from the nurse taking care of the patient. Apparently the patient was brought to the emergency department after he received a call from his primary care physician that his sodium was low. He was brought for further investigation. Subsequently nephrology was consulted and the patient received a dose of Lasix. The sodium this morning appeared to be slightly lower than yesterday. His 119 which has came down from 121. We consulted to see the patient because of conges tive heart failure. When the patient presented yesterday apparently he did have bilateral lower extremities edema which has improved on the current dose of Lasix. No indication that the patient was experiencing increasing in the shortness of breath but according to the chart he was somewhat congested and having some dry cough. No fever and no chills. The chest x-ray showed findings consistent with CHF. He seems to be somewhat euvolemic this morning was no lower extremities edema but he does have mild expiratory wheezing. His pressure has been marginal. Past Medical History Past Medical History: Cancer, CVA/TIA, GERD/Reflux, Hyperlipidemia, Hypertension Additional Past Medical History / Comment(s): shingles few yrs ago-still w/residual leg pain, tremors, hx. prostate cancer 2004 w/radiation tx., short of breath History of Any Multi-Drug Resistant Organisms: None Reported Past Surgical History: Cholecystectomy, Coronary Bypass/CABG, Hernia Repair, Joint Replacement, Orthopedic Surgery Additional Past Surgical History / Comment(s): valve repair, right knee replaced, right shoulder surg. x 2 Past Anesthesia/Blood Transfusion Reactions: Previous Problems w/ Anesthesia Additional Past Anesthesia/Blood Transfusion Reaction / Comment(s): confusion after waking from anesthesia, day after cholycystectomy experienced low blood pressure adm to ICU received 2 units of plasma and whole blood Past Psychological History: Depression Smoking Status: Former smoker Past Alcohol Use History: Occasional Past Drug Use History: None Reported - Past Family History Mother Family Medical History: No Reported History Medications and Allergies Home Medications Medication Instructions Recorded Confirmed Type Furosemide [Lasix] 20 mg PEG/G-TUBE DAILY 08/01/15 01/22/22 History Potassium Chloride [Klor-Con 20] 20 meq PEG/G-TUBE DAILY 08/01/15 01/22/22 History Pregabalin [Lyrica] 75 mg PO BID 08/01/15 01/22/22 History Primidone [Mysoline] 100 mg PEG/G-TUBE HS 08/01/15 01/22/22 History Latanoprost Ophth [Xalatan 0.005%] 1 drop BOTH EYES DAILY 03/26/19 01/22/22 History Omeprazole [PriLOSEC] 40 mg PO DAILY 03/26/19 01/22/22 History Atorvastatin [Lipitor] 80 mg PEG/G-TUBE HS 12/08/19 01/22/22 History Timolol 0.5% Ophth Soln [Timoptic 1 drop BOTH EYES DAILY 12/08/19 01/22/22 History 0.5% Ophth Soln] ALPRAZolam [Xanax] 0.25 mg PEG/G-TUBE BID PRN 01/22/22 01/22/22 History ALPRAZolam [Xanax] 0.25 mg PEG/G-TUBE HS 01/22/22 01/22/22 History Amiodarone [Cordarone] 200 mg PEG/G-TUBE DAILY 01/22/22 01/22/22 History Amoxic-Pot Clav 875-125Mg 1 tab PEG/G-TUBE BID 01/22/22 01/22/22 History [Augmentin 875-125] Apixaban [Eliquis] 5 mg PEG/G-TUBE BID 01/22/22 01/22/22 History Primidone [Mysoline] 50 mg PEG/G-TUBE DAILY 01/22/22 01/22/22 History Propranolol [Inderal] 20 mg PEG/G-TUBE BID 01/22/22 01/22/22 History Tamsulosin HCl [Flomax] 0.4 mg PO HS 01/22/22 01/22/22 History predniSONE See Taper PEG/G-TUBE DIRECTED 01/22/22 01/22/22 History Allergies Allergy/AdvReac Type Severity Reaction Status Date / Time No Known Allergies Allergy Verified 01/22/22 15:13 Physical Exam Vitals: Vital Signs Temp Pulse Pulse Resp BP BP Pulse Ox 01/23/22 03:31 98.9 F 65 18 87/55 97 01/23/22 00:46 66 19 01/22/22 23:38 97.7 F 66 19 86/54 97 01/22/22 21:58 98.3 F 53 L 18 154/70 95 01/22/22 20:13 96 01/22/22 19:48 80 16 139/74 94 L 01/22/22 18:09 85 16 137/105 96 01/22/22 16:43 01/22/22 15:10 98.6 F 50 L 22 147/81 92 L FiO2 01/23/22 03:31 28 01/23/22 00:46 01/22/22 23:38 28 01/22/22 21:58 35 01/22/22 20:13 28 01/22/22 19:48 01/22/22 18:09 01/22/22 16:43 28 01/22/22 15:10 Intake and Output 01/22/22 01/23/22 01/23/22 22:59 06:59 14:59 Output Total 500 Balance -500 Output: Urine 500 Other: Voiding Method External Catheter External Catheter Weight 65.771 kg 69.5 kg - Constitutional General appearance: no acute distress - Respiratory Respiratory: bilateral: wheezing - Cardiovascular Rhythm: irregularly irregular Heart sounds: normal: S1, S2 Abnormal Heart Sounds: systolic murmur Results 01/22/22 15:42 01/22/22 21:31 Cardiac Enzymes 01/22/22 01/22/22 01/22/22 Range/Units 15:42 15:42 18:25 AST 34 (17-59) U/L Troponin I 0.070 H* 0.067 H* (0.000-0.034) ng/mL 01/22/22 Range/Units 21:31 AST (17-59) U/L Troponin I 0.073 H* (0.000-0.034) ng/mL Coagulation 01/22/22 Range/Units 15:42 PT 10.6 (9.0-12.0) sec APTT 27.6 (22.0-30.0) sec CBC 01/22/22 Range/Units 15:42 WBC 11.1 H (3.8-10.6) k/uL RBC 3.22 L (4.30-5.90) m/uL Hgb 10.7 L (13.0-17.5) gm/dL Hct 31.1 L (39.0-53.0) % Plt Count 376 (150-450) k/uL Comprehensive Metabolic Panel 01/22/22 01/22/22 Range/Units 15:42 21:31 Sodium 120 L 119 L* (137-145) mmol/L Potassium 5.2 H 4.4 (3.5-5.1) mmol/L Chloride 83 L 82 L (98-107) mmol/L Carbon Dioxide 25 30 (22-30) mmol/L BUN 35 H 36 H (9-20) mg/dL Creatinine 0.79 0.78 (0.66-1.25) mg/dL Glucose 124 H 90 (74-99) mg/dL Calcium 8.8 8.3 L (8.4-10.2) mg/dL AST 34 (17-59) U/L ALT 36 (4-49) U/L Alkaline Phosphatase 154 H (38-126) U/L Total Protein 6.4 (6.3-8.2) g/dL Albumin 3.5 (3.5-5.0) g/dL Current Medications Generic Name Dose Route Start Last Admin Trade Name Freq PRN Reason Stop Dose Admin Hydrocodone Bitart/Acetaminophen 1 each 01/22/22 19:39 Hydrocodone/Apap 5-325mg 1 Each Tab PO Q6HR PRN Pain Alprazolam 0.25 mg 01/22/22 17:38 Alprazolam 0.25 Mg Tab PEG/G-TUBE BID PRN Anxiety Alprazolam 0.25 mg 01/22/22 21:00 01/22/22 21:29 Alprazolam 0.25 Mg Tab PEG/G-TUBE 0.25 mg HS JW Administration Amiodarone HCl 200 mg 01/23/22 09:00 Amiodarone 200 Mg Tab PEG/G-TUBE DAILY JW Amoxicillin/Clavulanate Potassium 22 ml 01/22/22 21:00 01/22/22 21:30 Amoxic-Pot Clav 200-28.5mg/5ml 100 Ml Bottle PEG/G-TUBE 01/27/22 23:00 22 ml BID JW Administration Protocol Apixaban 5 mg 01/22/22 21:00 01/22/22 21:30 Apixaban 5 Mg Tab PEG/G-TUBE 5 mg BID JW Administration Protocol Atorvastatin Calcium 80 mg 01/22/22 21:00 01/22/22 21:30 Atorvastatin 80 Mg Tab PEG/G-TUBE 80 mg HS JW Administration Furosemide 40 mg 01/23/22 08:00 Furosemide 10 Mg/Ml 4 Ml Vial IV 01/23/22 08:01 ONCE ONE Latanoprost 1 drops 01/23/22 09:00 Latanoprost 0.005% Ophth Drops 2.5 Ml Btl BOTH EYES DAILY JW Naloxone HCl 0.2 mg 01/22/22 17:35 Naloxone 0.4 Mg/Ml 1 Ml Vial IV Q2M PRN Opioid Reversal Pantoprazole Sodium 40 mg 01/23/22 07:30 01/23/22 06:29 Pantoprazole 40 Mg Tablet PO 40 mg [id number] JW Administration Pregabalin 75 mg 01/22/22 21:00 01/22/22 21:30 Pregabalin 75 Mg Cap PO 75 mg BID JW Administration Primidone 50 mg 01/23/22 09:00 Primidone 50 Mg Tab PEG/G-TUBE DAILY JW Primidone 100 mg 01/22/22 21:00 01/22/22 21:30 Primidone 50 Mg Tab PEG/G-TUBE 100 mg HS JW Administration Propranolol HCl 20 mg 01/22/22 21:00 01/22/22 23:17 Propranolol 20 Mg Tab PEG/G-TUBE Not Given BID JW Tamsulosin HCl 0.4 mg 01/22/22 21:00 01/22/22 21:30 Tamsulosin 0.4 Mg Cap.Er.24h PO 0.4 mg HS JW Administration Timolol Maleate 1 drops 01/23/22 09:00 Timolol 0.5% Ophth Drops 5 Ml Btl BOTH EYES DAILY JW Intake and Output 01/22/22 01/23/22 01/23/22 22:59 06:59 14:59 Output Total 500 Balance -500 Output: Urine 500 Other: Voiding Method External Catheter External Catheter Weight 65.771 kg 69.5 kg 01/22/22 15:42 01/22/22 21:31 Assessment and Plan Assessment: Assessment #1 permanent atrial fibrillation was controlled heart rate #2 heart failure of unknown etiology seems to be slightly better #3 change in mental status #4 electrolytes imbalance #5 coronary artery disease and status post CABG #6 history of throat cancer #7 hypertension #8 hypotensive Plan #1 the patient seems to be somewhat euvolemic this morning except for mild bilateral expiratory wheezing but no lower extremities edema #2 stop propranolol #3 continue amiodarone #4 continue oral anticoagulation #5 Lasix to be managed by the nephrology service at this point since the patient is not in overt heart failure. #6 obtain an echo We'll follow-up with the patient
[2022-01-23] MEDS ORDERED: FUROSEMIDE 10 MG/ML 4 ML VIAL IV ONE (08:00)
[2022-01-23] MEDS: AMOXIC-POT CLAV 200-28.5MG/5ML 100 ML BOTTLE PEG/G-TUBE SCH ×2 (09:02→21:13)
[2022-01-23] MEDS: PRIMIDONE 50 MG TAB PEG/G-TUBE SCH ×2 (09:02→21:13)
[2022-01-23] MEDS: AMIODARONE 200 MG TAB PEG/G-TUBE SCH (09:02)
[2022-01-23] MEDS: PREGABALIN 75 MG CAP PO SCH ×2 (09:02→21:13)
[2022-01-23] MEDS: APIXABAN 5 MG TAB PEG/G-TUBE SCH ×2 (09:02→21:13)
[2022-01-23] MEDS: FAMOTIDINE 20 MG/2 ML VIAL IV SCH ×2 (09:02→21:13)
[2022-01-23 10:08] LABS: Basophils % (A) 0 %; Eosinophils # (A) 0.1 k/uL (0-0.7); Eosinophils % (A) 1 %; HCT 29.5 % (39.0-53.0); HGB 9.9 gm/dL (13.0-17.5); Hypochromasia Slight; Lymphocytes # (A) 1.3 k/uL (1.0-4.8); Lymphocytes % (A) 14 %; MCHC 33.4 g/dL (31.0-37.0); MCV 98.7 fL (80.0-100.0); Mean Platelet Volume 7.8; Monocytes # (A) 0.6 k/uL (0-1.0); Monocytes % (A) 7 %; Neutrophils # (A) 6.7 k/uL (1.3-7.7); Neutrophils % (A) 75 %; Platelet Count 350 k/uL (150-450); RBC 2.99 m/uL (4.30-5.90); RDW 14.4 % (11.5-15.5)
[2022-01-23 10:32] LABS: Calcium 8.6 mg/dL (8.4-10.2); Potassium 4.4 mmol/L (3.5-5.1)
--- NOTE | 2022-01-23 11:46 | P.HPIM ---
History of Present Illness This is a pleasant 81 years old male with past medical history of CVA/TIA, GERD/Reflux, Hyperlipidemia, Hypertension, shingles few yrs ago-still w/residual leg pain, tremors, hx. prostate cancer 2004 w/radiation tx., h/o Coronary Bypass/CABG, , valve repair, history of atrial fibrillation Patient sent by his PCP Dr. Paul for low sodium of 121 patient is awake alert and follows commands but is poor historian. He denies dyspnea but is lying in bed most of the time, no leg edema however he has bilateral basilar crepitations on some dependent trunk edema. No chest pain or abdominal pain. No rash or redness of the skin. Patient has trach collar with 5 L/m of oxygen. He has PEG tube and external urine catheter Patient blood pressure on low normal side 87/55, he is on 5 L/m off trach collar. Slightly tachypneic about 19 breast permanent and afebrile. WBC 11.1, hemoglobin 10.7. Sodium 120 and 119. His BMP is unremarkable. Elevated troponin 0.07 and 0.06 and 0.07. Elevated proBNP 140 900. Urine analysis is negative. Stewart virus is not detected. EKG showing atrial flutter with a rate of 120. Chest x-ray: Extensive calcified pleural plaque. There is evidence of con gestive heart failure with pulmonary edema which is mostly new compared to yesterday small pleural effusions are unchanged Review of Systems Review of systems CONSTITUTIONAL: No fever, no malaise, no fatigue. HEENT: No recent visual problems or hearing problems. Denied any sore throat. CARDIOVASCULAR: No orthopnea, PND, no palpitations, no syncope. PULMONARY: No chest wall tendernessSTINAL: No diarrhea, no nausea, no vomiting, no abdominal pain. Normoactive bowel sounds. NEUROLOGICAL: No headaches, no weakness, no numbness. HEMATOLOGICAL: Denies any bleeding or petechiae. GENITOURINARY: Denies any burning micturition, frequency, or urgency. MUSCULOSKELETAL/RHEUMATOLOGICAL: Denies any joint pain, swelling, or any muscle pain. ENDOCRINE: Denies any polyuria or polydipsia. Past Medical History Past Medical History: Cancer, CVA/TIA, GERD/Reflux, Hyperlipidemia, Hypertension Additional Past Medical History / Comment(s): shingles few yrs ago-still w/residual leg pain, tremors, hx. prostate cancer 2004 w/radiation tx., short of breath History of Any Multi-Drug Resistant Organisms: None Reported Past Surgical History: Cholecystectomy, Coronary Bypass/CABG, Hernia Repair, Joint Replacement, Orthopedic Surgery Additional Past Surgical History / Comment(s): valve repair, right knee r eplaced, right shoulder surg. x 2 Past Anesthesia/Blood Transfusion Reactions: Previous Problems w/ Anesthesia Additional Past Anesthesia/Blood Transfusion Reaction / Comment(s): confusion after waking from anesthesia, day after cholycystectomy experienced low blood pressure adm to ICU received 2 units of plasma and whole blood Past Psychological History: Depression Smoking Status: Former smoker Past Alcohol Use History: Occasional Past Drug Use History: None Reported - Past Family History Mother Family Medical History: No Reported History Medications and Allergies Home Medications Medication Instructions Recorded Confirmed Type Furosemide [Lasix] 20 mg PEG/G-TUBE DAILY 08/01/15 01/22/22 History Potassium Chloride [Klor-Con 20] 20 meq PEG/G-TUBE DAILY 08/01/15 01/22/22 History Pregabalin [Lyrica] 75 mg PO BID 08/01/15 01/22/22 History Primidone [Mysoline] 100 mg PEG/G-TUBE HS 08/01/15 01/22/22 History Latanoprost Ophth [Xalatan 0.005%] 1 drop BOTH EYES DAILY 03/26/19 01/22/22 History Omeprazole [PriLOSEC] 40 mg PO DAILY 03/26/19 01/22/22 History Atorvastatin [Lipitor] 80 mg PEG/G-TUBE HS 12/08/19 01/22/22 History Timolol 0.5% Ophth Soln [Timoptic 1 drop BOTH EYES DAILY 12/08/19 01/22/22 History 0.5% Ophth Soln] ALPRAZolam [Xanax] 0.25 mg PEG/G-TUBE BID PRN 01/22/22 01/22/22 History ALPRAZolam [Xanax] 0.25 mg PEG/G-TUBE HS 01/22/22 01/22/22 History Amiodarone [Cordarone] 200 mg PEG/G-TUBE DAILY 01/22/22 01/22/22 History Amoxic-Pot Clav 875-125Mg 1 tab PEG/G-TUBE BID 01/22/22 01/22/22 History [Augmentin 875-125] Apixaban [Eliquis] 5 mg PEG/G-TUBE BID 01/22/22 01/22/22 History Primidone [Mysoline] 50 mg PEG/G-TUBE DAILY 01/22/22 01/22/22 History Propranolol [Inderal] 20 mg PEG/G-TUBE BID 01/22/22 01/22/22 History Tamsulosin HCl [Flomax] 0.4 mg PO HS 01/22/22 01/22/22 History predniSONE See Taper PEG/G-TUBE DIRECTED 01/22/22 01/22/22 History Allergies Allergy/AdvReac Type Severity Reaction Status Date / Time No Known Allergies Allergy Verified 01/22/22 15:13 Physical Exam Vitals: Vital Signs Temp Pulse Pulse Resp BP BP Pulse Ox 01/23/22 03:31 98.9 F 65 18 87/55 97 01/23/22 00:46 66 19 01/22/22 23:38 97.7 F 66 19 86/54 97 01/22/22 21:58 98.3 F 53 L 18 154/70 95 01/22/22 20:13 96 01/22/22 19:48 80 16 139/74 94 L 01/22/22 18:09 85 16 137/105 96 01/22/22 16:43 01/22/22 15:10 98.6 F 50 L 22 147/81 92 L FiO2 01/23/22 03:31 28 01/23/22 00:46 01/22/22 23:38 28 01/22/22 21:58 35 01/22/22 20:13 28 01/22/22 19:48 01/22/22 18:09 01/22/22 16:43 28 01/22/22 15:10 Intake and Output 01/22/22 01/23/22 01/23/22 22:59 06:59 14:59 Output Total 500 Balance -500 Output: Urine 500 Other: Voiding Method External Catheter External Catheter Weight 65.771 kg 69.5 kg GENERAL: The patient is alert and oriented x3, not in any acute distress. Well developed, well nourished. -HEENT: Pupils are round and equally reacting to light. EOMI. No scleral icterus. No conjunctival pallor. Normocephalic, atraumatic. No pharyngeal erythema. No thyromegaly. Trach collar in place CARDIOVASCULAR: S1 and S2 present. No murmurs, rubs, or gallops. PULMONARY: Chest is clear to auscultation, no wheezing or crackles. -ABDOMEN: Soft, nontender, nondistended, normoactive bowel sounds. No palpable organomegaly. PEG tube and a Place MUSCULOSKELETAL: No joint swelling or deformity. EXTREMITIES: No cyanosis, clubbing, or pedal edema. NEUROLOGICAL: Gross neurological examination did not reveal any focal deficits. SKIN: No rashes. no petechiae. Results CBC & Chem 7: 01/22/22 15:42 01/22/22 21:31 Labs: Abnormal Lab Results - Last 24 Hours (Table) 01/22/22 01/22/22 01/22/22 Range/Units 15:42 15:42 15:42 WBC 11.1 H (3.8-10.6) k/uL RBC 3.22 L (4.30-5.90) m/uL Hgb 10.7 L (13.0-17.5) gm/dL Hct 31.1 L (39.0-53.0) % Neutrophils # 9.6 H (1.3-7.7) k/uL Lymphocytes # 0.8 L (1.0-4.8) k/uL Sodium 120 L (137-145) mmol/L Potassium 5.2 H (3.5-5.1) mmol/L Chloride 83 L (98-107) mmol/L BUN 35 H (9-20) mg/dL Glucose 124 H (74-99) mg/dL Calcium (8.4-10.2) mg/dL Alkaline Phosphatase 154 H (38-126) U/L Troponin I 0.070 H* (0.000-0.034) ng/mL 01/22/22 01/22/22 01/22/22 Range/Units 18:25 21:31 21:31 WBC (3.8-10.6) k/uL RBC (4.30-5.90) m/uL Hgb (13.0-17.5) gm/dL Hct (39.0-53.0) % Neutrophils # (1.3-7.7) k/uL Lymphocytes # (1.0-4.8) k/uL Sodium 119 L* (137-145) mmol/L Potassium (3.5-5.1) mmol/L Chloride 82 L (98-107) mmol/L BUN 36 H (9-20) mg/dL Glucose (74-99) mg/dL Calcium 8.3 L (8.4-10.2) mg/dL Alkaline Phosphatase (38-126) U/L Troponin I 0.067 H* 0.073 H* (0.000-0.034) ng/mL Microbiology - Last 24 Hours (Table) 01/22/22 16:40 Sputum Culture - Preliminary Sputum Thrombosis Risk Factor Assmnt - Choose All That Apply Each Factor Represents 1 point: Medical pt on bed rest Each Risk Factor Represents 2 Points: Malignancy Each Risk Factor Represents 3 Points: Age 75 years or older Other congenital or acquired thrombophilia - If yes, enter type in comment: No Thrombosis Risk Factor Assessment Total Risk Factor Score: 6 Thrombosis Risk Factor Assessment Level: High Risk Assessment and Plan Assessment: Acute on Chronic CHF exacerbation, unknown ejection fraction Hypervolemic hyponatremia Chronic atrial fibrillation on liquids at home History of coronary artery disease status post CABG Hypertension Hyperlipidemia History of GERD History of shingles and left leg pain History of throat cancer on PEG tube Plan: This is a pleasant 81 years old male presents with hyponatremia Check urine osmolality and sodium level With fluid restriction Patient received IV Lasix today Cardiology and pulmonary team consult Machine [employer]working Sander on the case with close monitoring of sodium level Check echocardiogram Discontinue propranolol and continue with him amiodarone per Heating Engineer Labs and medication were reviewed.. Continue same treatment. Continue with symptomatic treatment. Resume home medication. Monitor lytes and vitals. DVT and GI prophylaxis. Further recommendations as per clinical course of the patient DVT prophylaxis: eliquis GI Prophylaxis: Pepcid PT/OT: Pending Prognosis is guarded
[2022-01-23] MEDS: TIMOLOL 0.5% OPHTH DROPS 5 ML BTL BOTH EYES SCH (12:11)
[2022-01-23] MEDS: LATANOPROST 0.005% OPHTH DROPS 2.5 ML BTL BOTH EYES SCH (12:11)
--- NOTE | 2022-01-23 12:26 | P.CNPUL ---
History of Present Illness Consult date: 01/23/22 Requesting physician: Dominik Adams Reason for consult: dyspnea, hypoxemia, pneumonia, abnormal CXR/CT Chief complaint: CHF/hyponatremia History of present illness: Pulmonary consult dated 01/23/2022. 81-year-old male, who was seen in the emergency department, on January 22. The patient was apparently recently seen in our office, on January 21, and was thought to have bronchospasm, and treated with steroids and antibiotics. The patient has a history of atrial fibrillation, throat cancer, status post tracheostomy, and PEG tube placement, CHF, hyperlipidemia, hypertension, prostate cancer, and shingles. The patient has also had a previous bypass surgery. The patient was seen in the emergency room, by Dr. Lombardo, and admitted with a diagnosis of hyponatremia, CHF, elevated troponin, and tracheostomy. The patient is nonverbal. He is seen today in room 373. He is on a trach collar at 28%. The patient is not receiving any IV fluids. White count 9, hemoglobin 9.9, hematocrit 29.5, platelet count 350,000. Initial sodium was 120, and today's sodium is 123. Potassium 4.4, chlorides 82, CO2 33, BUN 31, and creatinine 0.93. The patient's N-terminal proBNP was 14,900. Troponins were 0.070, 0.067, and 0.073. Urine testing was negative. Testing for coronavirus was also negative. Chest x-ray shows extensive calcified pleural plaque, and changes of pulmonary edema/CHF. Review of Systems REVIEW OF SYSTEMS: CONSTITUTIONAL: Weakness. NEUROLOGIC: [ Negative.] HEENT: [ Negative.] CARDIAC: Worsened lower extremity edema. PULMONARY: Shortness of breath, wheezing respirations, and chest congestion. GI: Decreased oral intake. : [Negative.] RHEUMATOLOGIC: [ Negative.] IMMUNOLOGIC: [ Negative.] ENDOCRINE: [Negative. ] DERMATOLOGIC: [Negative.] Past Medical History Past Medical History: Cancer, CVA/TIA, GERD/Reflux, Hyperlipidemia, Hypertension Additional Past Medical History / Comment(s): shingles few yrs ago-still w/residual leg pain, tremors, hx. prostate cancer 2004 w/radiation tx., short of breath History of Any Multi-Drug Resistant Organisms: None Reported Past Surgical History: Cholecystectomy, Coronary Bypass/CABG, Hernia Repair, Joint Replacement, Orthopedic Surgery Additional Past Surgical History / Comment(s): valve repair, right knee replaced, right shoulder surg. x 2 Past Anesthesia/Blood Transfusion Reactions: Previous Problems w/ Anesthesia Additional Past Anesthesia/Blood Transfusion Reaction / Comment(s): confusion after waking from anesthesia, day after cholycystectomy experienced low blood pressure adm to ICU received 2 units of plasma and whole blood Past Psychological History: Depression Smoking Status: Former smoker Past Alcohol Use History: Occasional Past Drug Use History: None Reported - Past Family History Mother Family Medical History: No Reported History Medications and Allergies Home Medications Medication Instructions Recorded Confirmed Type Furosemide [Lasix] 20 mg PEG/G-TUBE DAILY 08/01/15 01/22/22 History Potassium Chloride [Klor-Con 20] 20 meq PEG/G-TUBE DAILY 08/01/15 01/22/22 His tory Pregabalin [Lyrica] 75 mg PO BID 08/01/15 01/22/22 History Primidone [Mysoline] 100 mg PEG/G-TUBE HS 08/01/15 01/22/22 History Latanoprost Ophth [Xalatan 0.005%] 1 drop BOTH EYES DAILY 03/26/19 01/22/22 History Omeprazole [PriLOSEC] 40 mg PO DAILY 03/26/19 01/22/22 History Atorvastatin [Lipitor] 80 mg PEG/G-TUBE HS 12/08/19 01/22/22 History Timolol 0.5% Ophth Soln [Timoptic 1 drop BOTH EYES DAILY 12/08/19 01/22/22 History 0.5% Ophth Soln] ALPRAZolam [Xanax] 0.25 mg PEG/G-TUBE BID PRN 01/22/22 01/22/22 History ALPRAZolam [Xanax] 0.25 mg PEG/G-TUBE HS 01/22/22 01/22/22 History Amiodarone [Cordarone] 200 mg PEG/G-TUBE DAILY 01/22/22 01/22/22 History Amoxic-Pot Clav 875-125Mg 1 tab PEG/G-TUBE BID 01/22/22 01/22/22 History [Augmentin 875-125] Apixaban [Eliquis] 5 mg PEG/G-TUBE BID 01/22/22 01/22/22 History Primidone [Mysoline] 50 mg PEG/G-TUBE DAILY 01/22/22 01/22/22 History Propranolol [Inderal] 20 mg PEG/G-TUBE BID 01/22/22 01/22/22 History Tamsulosin HCl [Flomax] 0.4 mg PO HS 01/22/22 01/22/22 History predniSONE See Taper PEG/G-TUBE DIRECTED 01/22/22 01/22/22 History Allergies Allergy/AdvReac Type Severity Reaction Status Date / Time No Known Allergies Allergy Verified 01/22/22 15:13 Physical Exam Osteopathic Statement: *. No significant issues noted on an osteopathic structural exam other than those noted in the History and Physical/Consult. Vitals: Vital Signs Temp Pulse Pulse Pulse Resp BP BP 01/23/22 09:00 97.5 F L 66 20 116/72 01/23/22 08:36 01/23/22 03:31 98.9 F 65 18 87/55 01/23/22 00:46 66 19 01/22/22 23:38 97.7 F 66 19 86/54 01/22/22 21:58 98.3 F 53 L 18 154/70 01/22/22 20:13 01/22/22 19:48 80 16 139/74 01/22/22 18:09 85 16 137/105 01/22/22 16:43 01/22/22 15:10 98.6 F 50 L 22 147/81 Pulse Ox FiO2 01/23/22 09:00 96 28 01/23/22 08:36 28 01/23/22 03:31 97 28 01/23/22 00:46 01/22/22 23:38 97 28 01/22/22 21:58 95 35 01/22/22 20:13 96 28 01/22/22 19:48 94 L 01/22/22 18:09 96 01/22/22 16:43 28 01/22/22 15:10 92 L Intake and Output 01/22/22 01/23/22 01/23/22 22:59 06:59 14:59 Output Total 500 150 Balance -500 -150 Output: Urine 500 150 Other: Voiding Method External Catheter External Catheter External Catheter Weight 65.771 kg 69.5 kg No acute distress, nonverbal, with a midline tracheostomy tube. HEENT examination is grossly unremarkable. Neck supple. Full range of motion. No adenopathy thyromegaly or neck vein distention. Midline tracheostomy tube is noted. The patient is receiving oxygen via a trach collar at 28%. Cardiovascular examination reveals regular rhythm rate. S1-S2 normal. No S3 or S4. No discernible murmur noted. Heart sounds are distant. Heart rate 66 bpm. Lungs reveal scattered bilateral rhonchi and crackles. No wheezes. Breath sounds equal bilaterally. Saturations are 96%. Abdomen soft, without bowel sounds. PEG tube noted. No masses. Extremities are intact. No cyanosis clubbing or edema. Skin is without rash or lesion. Neurologic examination is brief but nonfocal. Results - Laboratory Findings CBC and BMP: 01/23/22 08:56 01/23/22 08:56 PT/INR, D-dimer PT 10.6 sec (9.0-12.0) 01/22/22 15:42 INR 1.0 (<1.2) 01/22/22 15:42 Abnormal lab findings: Abnormal Labs 01/22/22 01/22/22 01/22/22 15:42 15:42 15:42 WBC 11.1 H RBC 3.22 L Hgb 10.7 L Hct 31.1 L Neutrophils # 9.6 H Lymphocytes # 0.8 L Sodium 120 L Potassium 5.2 H Chloride 83 L Carbon Dioxide BUN 35 H Glucose 124 H Calcium Alkaline Phosphatase 154 H Troponin I 0.070 H* 01/22/22 01/22/22 01/22/22 18:25 21:31 21:31 WBC RBC Hgb Hct Neutrophils # Lymphocytes # Sodium 119 L* Potassium Chloride 82 L Carbon Dioxide BUN 36 H Glucose Calcium 8.3 L Alkaline Phosphatase Troponin I 0.067 H* 0.073 H* 01/23/22 01/23/22 08:56 08:56 WBC RBC 2.99 L Hgb 9.9 L Hct 29.5 L Neutrophils # Lymphocytes # Sodium 123 L Potassium Chloride 82 L Carbon Dioxide 33 H BUN 31 H Glucose Calcium Alkaline Phosphatase Troponin I - Diagnostic Findings Chest x-ray: image reviewed Assessment and Plan Assessment: Shortness of breath, with evidence of CHF/pulmonary edema on chest x-ray, as well as an elevated N-terminal proBNP. History of throat cancer, status post tracheostomy. Vocal cord paralysis. History of PEG tube placement. History of CVA. History of hyperlipidemia. History of hypertension. History of shingles. Prostate cancer, 2004, status post radiation treatment. Previous history of bypass grafting. Prior history of tobacco use. History of depression. Plan: Plan dated 01/23/2022. The patient is seen in room 373, and examined. Labs, x-rays, medications are all reviewed. The patient was apparently seen in my office, by my partner, on January 21, and treated for bronchospasm with steroids and antibiotics the patient's chest x-ray and lab data would suggest more edema/CHF. I will check a pro-calcitonin level. The patient was placed on Augmentin liquid. We will continue to follow make recommendations along the way. Time with Patient: Greater than 30
--- NOTE | 2022-01-23 14:16 | P.NPCON ---
History of Present Illness - Reason for Consult Consult date: 01/23/22 hyponatremia - Chief Complaint Altered mental status - History of Present Illness 81-year-old gentleman coming to the hospital with the above complaints. Currently sleepy, most of the history obtained from the chart and the at bedside. As per the diagnosed with laryngeal carcinoma currently has a tracheostomy tube. As per her he was doing okay at home, labs showed sodium off 120 and he was sent to the hospital. Chest x-ray showed pulmonary vascular congestion and he was given Lasix. Sodium improved to 123. He has chronic hyponatremia with a baseline sodium of 132 to from last month. Review of Systems Constitutional: Reports as per HPI Past Medical History Past Medical History: Cancer, CVA/TIA, GERD/Reflux, Hyperlipidemia, Hypertension Additional Past Medical History / Comment(s): shingles few yrs ago-still w/residual leg pain, tremors, hx. prostate cancer 2004 w/radiation tx., short of breath History of Any Multi-Drug Resistant Organisms: None Reported Past Surgical History: Cholecystectomy, Coronary Bypass/CABG, Hernia Repair, Joint Replacement, Orthopedic Surgery Additional Past Surgical History / Comment(s): valve repair, right knee replaced, right shoulder surg. x 2 Past Anesthesia/Blood Transfusion Reactions: Previous Problems w/ Anesthesia Additional Past Anesthesia/Blood Transfusion Reaction / Comment(s): confusion after waking from anesthesia, day after cholycystectomy experienced low blood pressure adm to ICU received 2 units of plasma and whole blood Past Psychological History: Depression Smoking Status: Former smoker Past Alcohol Use History: Occasional Past Drug Use History: None Reported - Past Family History Mother Family Medical History: No Reported History Medications and Allergies Home Medications Medication Instructions Recorded Confirmed Type Furosemide [Lasix] 20 mg PEG/G-TUBE DAILY 08/01/15 01/22/22 History Potassium Chloride [Klor-Con 20] 20 meq PEG/G-TUBE DAILY 08/01/15 01/22/22 History Pregabalin [Lyrica] 75 mg PO BID 08/01/15 01/22/22 History Primidone [Mysoline] 100 mg PEG/G-TUBE HS 08/01/15 01/22/22 History Latanoprost Ophth [Xalatan 0.005%] 1 drop BOTH EYES DAILY 03/26/19 01/22/22 History Omeprazole [PriLOSEC] 40 mg PO DAILY 03/26/19 01/22/22 History Atorvastatin [Lipitor] 80 mg PEG/G-TUBE HS 12/08/19 01/22/22 History Timolol 0.5% Ophth Soln [Timoptic 1 drop BOTH EYES DAILY 12/08/19 01/22/22 History 0.5% Ophth Soln] ALPRAZolam [Xanax] 0.25 mg PEG/G-TUBE BID PRN 01/22/22 01/22/22 History ALPRAZolam [Xanax] 0.25 mg PEG/G-TUBE HS 01/22/22 01/22/22 History Amiodarone [Cordarone] 200 mg PEG/G-TUBE DAILY 01/22/22 01/22/22 History Amoxic-Pot Clav 875-125Mg 1 tab PEG/G-TUBE BID 01/22/22 01/22/22 History [Augmentin 875-125] Apixaban [Eliquis] 5 mg PEG/G-TUBE BID 01/22/22 01/22/22 History Primidone [Mysoline] 50 mg PEG/G-TUBE DAILY 01/22/22 01/22/22 History Propranolol [Inderal] 20 mg PEG/G-TUBE BID 01/22/22 01/22/22 History Tamsulosin HCl [Flomax] 0.4 mg PO HS 01/22/22 01/22/22 History predniSONE See Taper PEG/G-TUBE DIRECTED 01/22/22 01/22/22 History Allergies Allergy/AdvReac Type Severity Reaction Status Date / Time No Known Allergies Allergy Verified 01/22/22 15:13 Physical Exam Vitals: Vital Signs Temp Pulse Pulse Pulse Resp BP BP 01/23/22 12:20 97.5 F L 65 18 105/60 01/23/22 09:00 97.5 F L 66 20 116/72 01/23/22 08:36 01/23/22 03:31 98.9 F 65 18 87/55 01/23/22 00:46 66 19 01/22/22 23:38 97.7 F 66 19 86/54 01/22/22 21:58 98.3 F 53 L 18 154/70 01/22/22 20:13 01/22/22 19:48 80 16 139/74 01/22/22 18:09 85 16 137/105 01/22/22 16:43 01/22/22 15:10 98.6 F 50 L 22 147/81 Pulse Ox FiO2 01/23/22 12:20 94 L 01/23/22 09:00 96 28 01/23/22 08:36 28 01/23/22 03:31 97 28 01/23/22 00:46 01/22/22 23:38 97 28 01/22/22 21:58 95 35 01/22/22 20:13 96 28 01/22/22 19:48 94 L 01/22/22 18:09 96 01/22/22 16:43 28 01/22/22 15:10 92 L Intake and Output 01/22/22 01/23/22 01/23/22 22:59 06:59 14:59 Output Total 500 150 Balance -500 -150 Output: Urine 500 150 Other: Voiding Method External Catheter External Catheter External Catheter Weight 65.771 kg 69.5 kg 69.5 kg No acute distress S1-S2 heard Tracheostomy tube Decreased breath sounds Abdomen soft Trace edema Results - Lab Results Most recent lab results Calcium 8.6 mg/dL (8.4-10.2) 01/23/22 08:56 01/23/22 08:56 01/23/22 08:56 Assessment and Plan Assessment: #1 acute on chronic hypornatremia 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 #2 laryngeal cancer status post tracheostomy #3 encephalopathy #4 hypotensive episodes Plan: #1 agree with Lasix, sodium improved to 123. Goal serum sodium off 126 by tomorrow. #2 add Lasix 20 mg IV twice a day #3 labs in the morning
[2022-01-23 15:40] LABS: Uric Acid 5.6 mg/dL (3.5-8.5)
--- NOTE | 2022-01-23 15:44 | CA ---
Transthoracic Echo Report Name: Mauri Pires Age: 81 Gender: M : 1940 Exam Date: 01/23/2022 13:16 Exam Location: [place] [facility] Ht (in): 64 Wt (lb): 153 Ordering Physician: Shahid Lombardo MD Attending/Referring Phys: [employer]ary [employer] Worker Helper Heaven Yeager RDCS Procedure CPT: Indications: chf Cardiac Hx: Technical Quality: Fair Contrast 1: Total Dose (mL): Contrast 2: Total Dose (mL): MEASUREMENTS (Male / Female) Normal Values 2D ECHO LV Diastolic Diameter PLAX 4.2 cm 4.2 - 5.9 / 3.9 - 5.3 cm LV Systolic Diameter PLAX 3.1 cm IVS Diastolic Thickness 2.1 cm 0.6 - 1.0 / 0.6 - 0.9 cm LVPW Diastolic Thickness 1.8 cm 0.6 - 1.0 / 0.6 - 0.9 cm LV Relative Wall Thickness 0.9 RV Internal Dim ED PLAX 3.0 cm LA Systolic Diameter LX 5.8 cm 3.0 - 4.0 / 2.7 - 3.8 cm M-MODE Aortic Root Diameter MM 4.6 cm LA Systolic Diameter MM 5.5 cm LA Ao Ratio MM 1.2 AV Cusp Separation MM 1.5 cm DOPPLER AV Peak Velocity 343.4 cm/s AV Peak Gradient 47.2 mmHg AV Mean Velocity 230.7 cm/s AV Mean Gradient 25.4 mmHg AV Velocity Time Integral 61.2 cm LVOT Peak Velocity 84.8 cm/s LVOT Peak Gradient 2.9 mmHg MV Peak Velocity 234.4 cm/s MV Peak Gradient 22.0 mmHg MV Mean Velocity 140.8 cm/s MV Mean Gradient 9.2 mmHg MV Velocity Time Integral 66.4 cm MV Area PHT 2.0 cm??? Mitral E Point Velocity 188.2 cm/s Mitral A Point Velocity 107.0 cm/s Mitral E to A Ratio 1.8 MV Deceleration Time 376.8 ms TR Peak Velocity 315.5 cm/s TR Peak Gradient 39.8 mmHg Right Ventricular Systolic Press 43.9 mmHg FINDINGS Left Ventricle Severely increased left ventricular wall thickness. Left ventricular ejection fraction is estimated at 50-55 %. Abnormal (paradoxical) septal motion consistent with postoperative state. Right Ventricle Normal right ventricular size and function. Moderate pulmonary hypertension. Right Atrium Right atrium not well visualized. Left Atrium Severely increased left atrial diameter. Mitral Valve Mitral valve thickened. Severe mitral annular calcification. Mild mitral stenosis. [id number] mitral regurgitation. Aortic Valve Moderate aortic stenosis with a peak gradient of 47 mmHg and a mean gradient of 25 mmHg. Mild aortic regurgitation. Bioprosthetic aortic valve. Tricuspid Valve Structurally normal tricuspid valve. Moderate tricuspid regurgitation. Pulmonic Valve Mild pulmonic regurgitation. Pericardium No pericardial effusion. Aorta Dilated aortic root. CONCLUSIONS Technically very difficult study for interpretation. Poorly visualized endocardium and poorly visualized intracardiac valves Probably normal left ventricular dimension and systolic function Moderate aortic stenosis with a mean gradient of 25 mmHg and moderate aortic regurgitation. The aortic valve is extremely thickened and calcified Previewed by: Dr. Fredis Craft MD (Electronically Signed) Final Date: 23 January 2022 15:43
[2022-01-23] MEDS: FUROSEMIDE 10 MG/ML 2 ML VIAL IV SCH (17:54)
[2022-01-23] MEDS: ATORVASTATIN 80 MG TAB PEG/G-TUBE SCH (21:13)
[2022-01-23] MEDS: ALPRAZolam 0.25 MG TAB PEG/G-TUBE SCH (21:13)
[2022-01-23] MEDS: TAMSULOSIN 0.4 MG CAP.ER.24H PO SCH (21:13)
[2022-01-24] MEDS: FUROSEMIDE 10 MG/ML 2 ML VIAL IV SCH ×3 (05:09→21:26)
[2022-01-24] MEDS: PANTOPRAZOLE 40 MG TABLET PO SCH (06:09)
[2022-01-24 06:29] LABS: Glucose,Whole Blood 134 mg/dL (70-110)
--- NOTE | 2022-01-24 06:59 | P.PN ---
Subjective Progress Note Date: 01/24/22 Principal diagnosis: Heart failure with preserved ejection fraction This is an 81-year-old gentleman with an extensive medical history consistent of CAD and status post CABG with unknown details at this point, permanent atrial fibrillation on oral anticoagulation, hypertension, dyslipidemia, history of throat cancer seems to be active at this point the patient currently have trach tube, as well as multiple comorbid conditions as well as multiple comorbid conditions. We requested to see the patient as a consult for further evaluation of congestive heart failure. The patient is extremely poor historian and he was extremely lethargic. The history was taken from the chart as well as from the nurse taking care of the patient. Apparently the patient was brought to the em ergency department after he received a call from his primary care physician that his sodium was low. He was brought for further investigation. Subsequently nephrology was consulted and the patient received a dose of Lasix. The sodium this morning appeared to be slightly lower than yesterday. His 119 which has came down from 121. We consulted to see the patient because of congestive heart failure. When the patient presented yesterday apparently he did have bilateral lower extremities edema which has improved on the current dose of Lasix. No indication that the patient was experiencing increasing in the shortness of breath but according to the chart he was somewhat congested and having some dry cough. No fever and no chills. The chest x-ray showed findings consistent with CHF. January [id number] The patient was seen and evaluated this morning. He diuresed very well overnight. He put about thousands cc of urine out. He responds very nicely to Lasix at 20 mg IV twice a day. Nephrology service continues to be on the case. No blood work from the morning as of yet. He is able to communicate more and his mentation has improved the front. When I ask him is he feeling better he stated yes. On examination he still have expiratory wheezing but the edema is very mild. He underwent an echo which was technically very difficult but the ejection fraction was normal with moderate aortic stenosis/possible bioprosthetic valve. The study was extremely technically difficult. He continues to be on oral anticoagulation. Objective - Vital Signs Vital signs: Vital Signs Temp 97.9 F 01/24/22 04:00 Pulse 80 01/24/22 04:00 Resp 16 01/24/22 04:00 BP 98/62 01/24/22 04:00 Pulse Ox 94 L 10/09/22 04:00 FiO2 28 01/24/22 04:00 Intake & Output 01/23/22 01/23/22 01/24/22 06:59 18:59 06:59 Intake Total 0 160 Output Total 500 1750 2000 Balance -007 -3696 -3048 Weight 69.5 kg 69.5 kg 65.5 kg Intake: Tube Feeding 0 160 Output: Urine 500 1750 2000 Other: Voiding Method External Catheter External Catheter External Catheter - Constitutional General appearance: Present: no acute distress - Respiratory Respiratory: bilateral: wheezing - Cardiovascular Rhythm: irregularly irregular Heart sounds: normal: S1, S2 Abnormal Heart Sounds: Present: systolic murmur - Labs CBC & Chem 7: 01/23/22 08:56 01/23/22 08:56 Labs: Abnormal Lab Results - Last 24 Hours (Table) 01/23/22 01/23/22 01/23/22 Range/Units 08:56 08:56 14:32 RBC 2.99 L (4.30-5.90) m/uL Hgb 9.9 L (13.0-17.5) gm/dL Hct 29.5 L (39.0-53.0) % Sodium 123 L (137-145) mmol/L Chloride 82 L (98-107) mmol/L Carbon Dioxide 33 H (22-30) mmol/L BUN 31 H (9-20) mg/dL POC Glucose (mg/dL) (70-110) mg/dL Osmolality 272 L (280-301) mosm/kg TSH 0.284 L (0.465-4.680) mIU/L 01/24/22 Range/Units 06:28 RBC (4.30-5.90) m/uL Hgb (13.0-17.5) gm/dL Hct (39.0-53.0) % Sodium (137-145) mmol/L Chloride (98-107) mmol/L Carbon Dioxide (22-30) mmol/L BUN (9-20) mg/dL POC Glucose (mg/dL) 134 H (70-110) mg/dL Osmolality (280-301) mosm/kg TSH (0.465-4.680) mIU/L Microbiology - Last 24 Hours (Table) 01/22/22 15:20 Blood Culture - Preliminary Blood No Growth after 24 hours 01/22/22 15:42 Blood Culture - Preliminary Blood No Growth after 24 hours 01/22/22 16:40 Gram Stain - Preliminary Sputum Sputum Culture - Preliminary Assessment and Plan Assessment: Assessment #1 permanent atrial fibrillation with controlled heart rate #2 heart failure with preserved ejection fraction #3 aortic stenosis #4 electrolytes imbalance #5 coronary artery disease and status post CABG #6 history of throat cancer #7 hypertension #8 hypotensive Plan #1 continue the current medical regimen #2 continue Lasix IV at 20 mg twice a day. He has been diuresing very well. Nephrology is on the case regarding renal failure #3 continue oral anticoagulation #4 follow-up with the patient
[2022-01-24] MEDS: AMOXIC-POT CLAV 200-28.5MG/5ML 100 ML BOTTLE PEG/G-TUBE SCH (09:40)
[2022-01-24] MEDS: AMIODARONE 200 MG TAB PEG/G-TUBE SCH (09:40)
[2022-01-24] MEDS: PREGABALIN 75 MG CAP PO SCH ×2 (09:40→20:11)
[2022-01-24] MEDS: APIXABAN 5 MG TAB PEG/G-TUBE SCH ×2 (09:40→20:10)
[2022-01-24] MEDS: TIMOLOL 0.5% OPHTH DROPS 5 ML BTL BOTH EYES SCH (09:40)
[2022-01-24] MEDS: LATANOPROST 0.005% OPHTH DROPS 2.5 ML BTL BOTH EYES SCH (09:40)
[2022-01-24] MEDS: PRIMIDONE 50 MG TAB PEG/G-TUBE SCH ×2 (09:40→20:11)
[2022-01-24 10:23] LABS: Basophils % (A) 0 %; Eosinophils # (A) 0.1 k/uL (0-0.7); Eosinophils % (A) 2 %; HGB 10.6 gm/dL (13.0-17.5); Hypochromasia Slight; Lymphocytes # (A) 0.9 k/uL (1.0-4.8); Lymphocytes % (A) 12 %; MCH 32.9 pg (25.0-35.0); MCHC 33.3 g/dL (31.0-37.0); MCV 98.8 fL (80.0-100.0); Monocytes # (A) 0.6 k/uL (0-1.0); Monocytes % (A) 8 %; Neutrophils # (A) 5.7 k/uL (1.3-7.7); Neutrophils % (A) 76 %; Platelet Count 344 k/uL (150-450); RBC 3.24 m/uL (4.30-5.90); RDW 14.6 % (11.5-15.5); WBC 7.5 k/uL (3.8-10.6)
[2022-01-24 10:55] LABS: African American GFR (CKD) 78 (>60 ml/min/1.73 sqM); Anion Gap 9 mmol/L; Blood Urea Nitrogen 32 mg/dL (9-20); Calcium 8.5 mg/dL (8.4-10.2); Carbon Dioxide 35 mmol/L (22-30); Chloride 84 mmol/L (98-107); Glucose 134 mg/dL (74-99); Non-African American GFR(CKD) 68 (>60 ml/min/1.73 sqM); Potassium 3.8 mmol/L (3.5-5.1); Sodium 128 mmol/L (137-145)
[2022-01-24 11:11] LABS: T4, Free (Free Thyroxine) 5.88 ng/dL (0.78-2.19)
--- NOTE | 2022-01-24 11:12 | P.PN ---
Subjective Progress Note Date: 01/24/22 Follow-up for hyponatremia. Opening his eyes, responding. Urine output of 3.7 L. Objective - Vital Signs Vital signs: Vital Signs Temp 98.2 F 01/24/22 09:40 Pulse 89 01/24/22 09:40 Resp 18 01/24/22 09:40 BP 112/75 01/24/22 09:40 Pulse Ox 95 01/24/22 09:40 FiO2 28 01/24/22 09:40 Intake & Output 01/23/22 01/24/22 01/24/22 18:59 06:59 18:59 Intake Total 0 160 Output Total 1750 1999 Balance -1750 -1840 Weight 69.5 kg 65.5 kg Intake: Tube Feeding 0 160 Output: Urine 1750 1999 Other: Voiding Method External Catheter External Catheter External Catheter - Exam No acute distress S1-S2 heard Tracheostomy Decreased breath sounds Edema - Labs CBC & Chem 7: 01/24/22 09:36 01/24/22 09:36 Labs: Abnormal Lab Results - Last 24 Hours (Table) 01/23/22 01/24/22 01/24/22 Range/Units 14:32 06:28 09:36 RBC 3.24 L (4.30-5.90) m/uL Hgb 10.6 L (13.0-17.5) gm/dL Hct 32.0 L (39.0-53.0) % Lymphocytes # 0.9 L (1.0-4.8) k/uL Sodium (137-145) mmol/L Chloride (98-107) mmol/L Carbon Dioxide (22-30) mmol/L BUN (9-20) mg/dL Glucose (74-99) mg/dL POC Glucose (mg/dL) 134 H (70-110) mg/dL Osmolality 272 L (280-301) mosm/kg TSH 0.284 L (0.465-4.680) mIU/L 01/24/22 Range/Units 09:36 RBC (4.30-5.90) m/uL Hgb (13.0-17.5) gm/dL Hct (39.0-53.0) % Lymphocytes # (1.0-4.8) k/uL Sodium 128 L (137-145) mmol/L Chloride 84 L (98-107) mmol/L Carbon Dioxide 35 H (22-30) mmol/L BUN 32 H (9-20) mg/dL Glucose 134 H (74-99) mg/dL POC Glucose (mg/dL) (70-110) mg/dL Osmolality (280-301) mosm/kg TSH (0.465-4.680) mIU/L Microbiology - Last 24 Hours (Table) 01/22/22 15:20 Blood Culture - Preliminary Blood No Growth after 24 hours 01/22/22 15:42 Blood Culture - Preliminary Blood No Growth after 24 hours 01/22/22 16:40 Gram Stain - Preliminary Sputum Sputum Culture - Preliminary Assessment and Plan Assessment: #1 acute on chronic hypornatremia 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 #2 laryngeal cancer status post tracheostomy #3 encephalopathy #4 hypotensive episodes Plan: #1 agree with Lasix, sodium improved to 128 today. Goal of 134 by tomorrow #2 continue with Lasix 20 mg IV twice a day #3 labs in the morning
--- NOTE | 2022-01-24 11:29 | P.PN ---
Subjective This is a pleasant 81 years old male with past medical history of CVA/TIA, GERD/Reflux, Hyperlipidemia, Hypertension, shingles few yrs ago-still w/residual leg pain, tremors, hx. prostate cancer 2004 w/radiation tx., h/o Coronary Bypass/CABG, , valve repair, history of atrial fibrillation Patient sent by his PCP Dr. Paul for low sodium of 121 patient is awake alert and follows commands but is poor historian. He denies dyspnea but is lying in bed most of the time, no leg edema however he has bilateral basilar crepitations on some dependent trunk edema. No chest pain or abdominal pain. No rash or redness of the skin. Patient has trach collar with 5 L/m of oxygen. He has PEG tube and external urine catheter Patient blood pressure on low normal side 87/55, he is on 5 L/m off trach colla r. Slightly tachypneic about 19 breast permanent and afebrile. WBC 11.1, hemoglobin 10.7. Sodium 120 and 119. His BMP is unremarkable. Elevated troponin 0.07 and 0.06 and 0.07. Elevated proBNP 140 900. Urine analysis is negative. Stewart virus is not detected. EKG showing atrial flutter with a rate of 120. Chest x-ray: Extensive calcified pleural plaque. There is evidence of congestive heart failure with pulmonary edema which is mostly new compared to yesterday small pleural effusions are unchanged 01/24/2022 Patient improving slowly and gradually. No shortness of breath while at rest. He is breathing quietly. His sodium is also improving up to 128, and is kept on IV Lasix 20 mg twice daily. Augmentin Kumpe discontinue it. The procalcitonin is negative. Also patient has evidence of hyperthyroidism with T4 is 5.8 and low TSH 0.2. Patient is a started on methimazole. 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 Patient continued on a liquid 5 mg for his chronic atrial fibrillation He is getting tube feeds at 30 mL/h He has Araiza catheter with clear urine Objective - Vital Signs Vital signs: Vital Signs Temp 97.9 F 01/24/22 04:00 Pulse 80 01/24/22 04:00 Resp 16 01/24/22 04:00 BP 98/62 01/24/22 04:00 Pulse Ox 95 01/24/22 08:44 FiO2 28 01/24/22 08:44 Intake & Output 01/23/22 01/24/22 01/24/22 18:59 06:59 18:59 Intake Total 0 160 Output Total 1750 1999 Balance -1750 -184 Weight 69.5 kg 65.5 kg Intake: Tube Feeding 0 160 Output: Urine 1749 1999 Other: Voiding Method External Catheter External Catheter - Exam GENERAL: The patient is alert and oriented x3, not in any acute distress. Well developed, well nourished. -HEENT: Pupils are round and equally reacting to light. EOMI. No scleral icterus. No conjunctival pallor. Normocephalic, atraumatic. No pharyngeal erythema. No thyromegaly. Trach collar in place CARDIOVASCULAR: S1 and S2 present. No murmurs, rubs, or gallops. PULMONARY: Chest is clear to auscultation, no wheezing or crackles. -ABDOMEN: Soft, nontender, nondistended, normoactive bowel sounds. No palpable organomegaly. PEG tube and a Place MUSCULOSKELETAL: No joint swelling or deformity. EXTREMITIES: No cyanosis, clubbing, or pedal edema. NEUROLOGICAL: Gross neurological examination did not reveal any focal deficits. SKIN: No rashes. no petechiae. - Labs CBC & Chem 7: 01/24/22 09:36 01/24/22 09:36 Labs: Abnormal Lab Results - Last 24 Hours (Table) 01/23/22 01/23/22 01/24/22 Range/Units 08:56 14:32 06:28 Sodium 123 L (137-145) mmol/L Chloride 82 L (98-107) mmol/L Carbon Dioxide 33 H (22-30) mmol/L BUN 31 H (9-20) mg/dL POC Glucose (mg/dL) 134 H (70-110) mg/dL Osmolality 272 L (280-301) mosm/kg TSH 0.284 L (0.465-4.680) mIU/L Microbiology - Last 24 Hours (Table) 01/22/22 15:20 Blood Culture - Preliminary Blood No Growth after 24 hours 01/22/22 15:42 Blood Culture - Preliminary Blood No Growth after 24 hours 01/22/22 16:40 Gram Stain - Preliminary Sputum Sputum Culture - Preliminary Assessment and Plan Assessment: Acute on Chronic CHF exacerbation, unknown ejection fraction Hypervolemic hyponatremia Hyperthyroidism Chronic atrial fibrillation on Eliquis at home History of coronary artery disease status post CABG Hypertension Hyperlipidemia History of GERD History of shingles and left leg pain History of throat cancer on PEG tube Plan: This is a pleasant 81 years old male presents with hyponatremia Continue with IV Lasix and monitor sodium and creatinine Start methimazole Discontinue Augmentin Cardiology and pulmonary team consult Record Pressman on the case with close monitoring of sodium level Check echocardiogram Discontinue propranolol and continue with him amiodarone per Purchasing Officer Labs and medication were reviewed.. Continue same treatment. Continue with symptomatic treatment. Resume home medication. Monitor lytes and vitals. DVT and GI prophylaxis. Further recommendations as per clinical course of the patient DVT prophylaxis: eliquis GI Prophylaxis: Pepcid Prognosis is guarded
[2022-01-24 11:49] LABS: Glucose,Whole Blood 173 mg/dL (70-110)
[2022-01-24 12:02] LABS: Potassium,Urine Random 13.8 mmol/L (25.0-125.0)
--- NOTE | 2022-01-24 12:53 | P.PN ---
Subjective Progress Note Date: 01/24/22 Principal diagnosis: Low saturations/CHF. Pulmonary consult dated 01/23/2022. 81-year-old male, who was seen in the emergency department, on January 22. The patient was apparently recently seen in our office, on January 21, and was thought to have bronchospasm, and treated with steroids and antibiotics. The patient has a history of atrial fibrillation, throat cancer, status post tracheostomy, and PEG tube placement, CHF, hyperlipidemia, hypertension, prostate cancer, and shingles. The patient has also had a previous bypass surgery. The patient was seen in the emergency room, by Dr. Lombardo, and admitted with a diagnosis of hyponatremia, CHF, elevated troponin, and tr acheostomy. The patient is nonverbal. He is seen today in room 373. He is on a trach collar at 28%. The patient is not receiving any IV fluids. White count 9, hemoglobin 9.9, hematocrit 29.5, platelet count 350,000. Initial sodium was 120, and today's sodium is 123. Potassium 4.4, chlorides 82, CO2 33, BUN 31, and creatinine 0.93. The patient's N-terminal proBNP was 14,900. Troponins were 0.070, 0.067, and 0.073. Urine testing was negative. Testing for coronavirus was also negative. Chest x-ray shows extensive calcified pleural plaque, and changes of pulmonary edema/CHF. Progress note dated 01/24/2022. 81-year-old male, seen yesterday in consultation. He was in the emergency d epartment on January 22, and was admitted with a diagnosis of CHF. He has a history of atrial fibrillation, throat cancer, status post tracheostomy, PEG tube placement, hyperlipidemia, hypertension, prostate cancer, and shingles. He was seen in the emergency room by Dr. Lombardo. Currently he is resting comfortably in room 373. He continues on trach collar at 28%. Tube feedings are running. Laboratory data includes a white count of 7.5, hemoglobin 10.6, hematocrit 32, and a platelet count of 344,000. Sodium 128, potassium 3.8, chloride 84, CO2 35, anion gap 9, BUN 32, and creatinine 1.02. Sputum sampling is showing 2 different gram-negative bacilli. Pro-calcitonin level is 0.04. Objective - Vital Signs Vital signs: Vital Signs Temp 98.1 F 01/24/22 11:32 Pulse 65 01/24/22 11:32 Resp 18 01/24/22 11:32 BP 103/59 01/24/22 11:32 Pulse Ox 95 01/24/22 11:32 FiO2 28 01/24/22 11:32 Intake & Output 01/23/22 01/24/22 01/24/22 18:59 06:59 18:59 Intake Total 0 160 120 Output Total 1750 2000 Balance -1750 -1840 120 Weight 69.5 kg 65.5 kg Intake: Oral 120 Tube Feeding 0 160 Output: Urine 1749 1999 Other: Voiding Method External Catheter External Catheter External Catheter - Exam No acute distress, nonverbal, with a midline tracheostomy tube. HEENT examination is grossly unremarkable. Neck supple. Full range of motion. No adenopathy thyromegaly or neck vein distention. Midline tracheostomy tube is noted. The patient is receiving oxygen via a trach collar at 28%. Cardiovascular examination reveals regular rhythm rate. S1-S2 normal. No S3 or S4. No discernible murmur noted. Heart sounds are distant. Heart rate 65 bpm. Lungs reveal scattered bilateral rhonchi and crackles. No wheezes. Breath sounds equal bilaterally. Saturations are 95 %. Abdomen soft, without bowel sounds. PEG tube noted. No masses. Extremities are intact. No cyanosis clubbing or edema. Skin is without rash or lesion. Neurologic examination is brief but nonfocal. - Labs CBC & Chem 7: 01/24/22 09:36 01/24/22 09:36 Labs: Abnormal Lab Results - Last 24 Hours (Table) 01/23/22 01/23/22 01/24/22 Range/Units 14:32 21:46 06:28 RBC (4.30-5.90) m/uL Hgb (13.0-17.5) gm/dL Hct (39.0-53.0) % Lymphocytes # (1.0-4.8) k/uL Sodium (137-145) mmol/L Chloride (98-107) mmol/L Carbon Dioxide (22-30) mmol/L BUN (9-20) mg/dL Glucose (74-99) mg/dL POC Glucose (mg/dL) 134 H (70-110) mg/dL Osmolality 272 L (280-301) mosm/kg TSH 0.284 L (0.465-4.680) mIU/L Free T4 (0.78-2.19) ng/dL Ur Random Potassium 13.8 L (25.0-125.0) mmol/L 01/24/22 01/24/22 01/24/22 Range/Units 09:36 09:36 11:46 RBC 3.24 L (4.30-5.90) m/uL Hgb 10.6 L (13.0-17.5) gm/dL Hct 32.0 L (39.0-53.0) % Lymphocytes # 0.9 L (1.0-4.8) k/uL Sodium 128 L (137-145) mmol/L Chloride 84 L (98-107) mmol/L Carbon Dioxide 35 H (22-30) mmol/L BUN 32 H (9-20) mg/dL Glucose 134 H (74-99) mg/dL POC Glucose (mg/dL) 173 H (70-110) mg/dL Osmolality (280-301) mosm/kg TSH 0.182 L (0.465-4.680) mIU/L Free T4 5.88 H (0.78-2.19) ng/dL Ur Random Potassium (25.0-125.0) mmol/L Microbiology - Last 24 Hours (Table) 01/22/22 16:40 Gram Stain - Preliminary Sputum Sputum Culture - Preliminary Gram Neg Bacilli Gram Neg Bacilli#2 01/22/22 15:20 Blood Culture - Preliminary Blood No Growth after 24 hours 01/22/22 15:42 Blood Culture - Preliminary Blood No Growth after 24 hours Assessment and Plan Assessment: Shortness of breath, with evidence of CHF/pulmonary edema on chest x-ray, as well as an elevated N-terminal proBNP. History of throat cancer, status post tracheostomy. Hypervolemic hyponatremia. Vocal cord paralysis. History of PEG tube placement. History of CVA. History of hyperlipidemia. History of hypertension. History of shingles. Prostate cancer, 2004, status post radiation treatment. Previous history of bypass grafting. Prior history of tobacco use. History of depression. Plan: Plan dated 01/23/2022. The patient is seen in room 373, and examined. Labs, x-rays, medications are all reviewed. The patient was apparently seen in my office, by my partner, on January 21, and treated for bronchospasm with steroids and antibiotics the patient's chest x-ray and lab data would suggest more edema/CHF. I will check a pro-calcitonin level. The patient was placed on Augmentin liquid. We will continue to follow make recommendations along the way. Plan dated 01/24/2022. The patient appears to be relatively stable. The sputum sample showed 2 different gram-negative bacilli, but the patient's pro-calcitonin level was quite low. The patient was on Augmentin, but for some reason that was discon tinued. We will continue to follow make recommendations along the way. Labs, x-rays, and medications are all reviewed. The patient was recently seen in our office by Dr. Garza. Prognosis is guarded. Time with Patient: Less than 30
[2022-01-24] MEDS: methIMAzole 5 MG TAB PO SCH ×2 (15:25→20:11)
[2022-01-24 17:04] LABS: Glucose,Whole Blood 146 mg/dL (70-110)
[2022-01-24 20:05] LABS: Glucose,Whole Blood 135 mg/dL (70-110)
[2022-01-24] MEDS: ALPRAZolam 0.25 MG TAB PEG/G-TUBE SCH (20:10)
[2022-01-24] MEDS: TAMSULOSIN 0.4 MG CAP.ER.24H PO SCH (20:11)
[2022-01-24] MEDS: ATORVASTATIN 80 MG TAB PEG/G-TUBE SCH (20:11)
[2022-01-25 00:42] LABS: Glucose,Whole Blood 166 mg/dL (70-110)
[2022-01-25 05:49] LABS: Glucose,Whole Blood 167 mg/dL (70-110)
[2022-01-25] MEDS: PANTOPRAZOLE 40 MG TABLET PO SCH (06:17)
[2022-01-25 09:26] LABS: Calcium 8.4 mg/dL (8.4-10.2); Potassium 3.9 mmol/L (3.5-5.1)
[2022-01-25] MEDS: FUROSEMIDE 10 MG/ML 2 ML VIAL IV SCH ×2 (09:35→20:27)
[2022-01-25] MEDS: PRIMIDONE 50 MG TAB PEG/G-TUBE SCH ×2 (09:35→20:26)
[2022-01-25] MEDS: PREGABALIN 75 MG CAP PO SCH ×2 (09:35→20:26)
[2022-01-25] MEDS: AMIODARONE 200 MG TAB PEG/G-TUBE SCH (09:36)
[2022-01-25] MEDS: TIMOLOL 0.5% OPHTH DROPS 5 ML BTL BOTH EYES SCH (09:36)
[2022-01-25] MEDS: APIXABAN 5 MG TAB PEG/G-TUBE SCH ×2 (09:36→20:26)
[2022-01-25] MEDS: LATANOPROST 0.005% OPHTH DROPS 2.5 ML BTL BOTH EYES SCH (09:36)
[2022-01-25] MEDS: methIMAzole 5 MG TAB PO SCH ×3 (09:36→20:27)
--- NOTE | 2022-01-25 11:06 | P.PN ---
Subjective Patient is seen in follow-up for hyponatremia. Sodium level improving. Receiving two-piece. Also on IV Lasix. Blood pressure stable. Vital signs are stable. General: Resting in bed. HEENT: Head exam is unremarkable. Trach collar noted. LUNGS: Breath sounds decreased. HEART: Rate and Rhythm are regular. ABDOMEN: Soft, no distention. EXTREMITITES: No edema. Objective - Vital Signs Vital signs: Vital Signs Temp 96.4 F L 01/25/22 08:15 Pulse 89 01/25/22 08:15 Resp 18 01/25/22 08:15 BP 129/71 01/25/22 08:15 Pulse Ox 90 L 01/25/22 08:15 FiO2 28 01/25/22 08:46 Intake & Output 01/24/22 01/25/22 01/25/22 18:59 06:59 18:59 Intake Total 360 400 200 Output Total 1000 Balance 360 -600 200 Weight 63 kg Intake: Oral 360 Tube Feeding 400 200 Output: Urine 1000 Condom 1000 Other: Voiding Method External Catheter External Catheter External Catheter - Labs CBC & Chem 7: 01/24/22 09:36 01/25/22 08:28 Labs: Abnormal Lab Results - Last 24 Hours (Table) 01/23/22 01/24/22 01/24/22 Range/Units 21:46 09:36 11:46 Sodium (137-145) mmol/L Chloride (98-107) mmol/L Carbon Dioxide (22-30) mmol/L BUN (9-20) mg/dL Glucose (74-99) mg/dL POC Glucose (mg/dL) 173 H (70-110) mg/dL TSH 0.182 L (0.465-4.680) mIU/L Free T4 5.88 H (0.78-2.19) ng/dL Ur Random Potassium 13.8 L (25.0-125.0) mmol/L 01/24/22 01/24/22 01/25/22 Range/Units 16:59 20:02 00:39 Sodium (137-145) mmol/L Chloride (98-107) mmol/L Carbon Dioxide (22-30) mmol/L BUN (9-20) mg/dL Glucose (74-99) mg/dL POC Glucose (mg/dL) 146 H 135 H 166 H (70-110) mg/dL TSH (0.465-4.680) mIU/L Free T4 (0.78-2.19) ng/dL Ur Random Potassium (25.0-125.0) mmol/L 01/25/22 01/25/22 Range/Units 05:45 08:28 Sodium 130 L (137-145) mmol/L Chloride 86 L (98-107) mmol/L Carbon Dioxide 38 H (22-30) mmol/L BUN 34 H (9-20) mg/dL Glucose 144 H (74-99) mg/dL POC Glucose (mg/dL) 167 H (70-110) mg/dL TSH (0.465-4.680) mIU/L Free T4 (0.78-2.19) ng/dL Ur Random Potassium (25.0-125.0) mmol/L Microbiology - Last 24 Hours (Table) 01/22/22 15:20 Blood Culture - Preliminary Blood No Growth after 48 hours 01/22/22 15:42 Blood Culture - Preliminary Blood No Growth after 48 hours 01/22/22 16:40 Gram Stain - Preliminary Sputum Sputum Culture - Preliminary Gram Neg Bacilli Gram Neg Bacilli#2 Assessment and Plan Plan: Assessment: 1. Hyponatremia. Was hypervolemic, now euvolemic. Underlying SIADH from malignancy. Urine sodium 68, urine osmolality 217. Cortisol not low. TSH low. 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 Vocal cord paralysis. 4. Status post PEG tube placement. 5. Acute on chronic diastolic CHF with moderate aortic stenosis, moderate aorti c regurgitation and moderate pulmonary hypertension. Plan: Maintain tube feeds. Maintain IV Lasix. Will change to oral upon discharge.
--- NOTE | 2022-01-25 11:32 | P.PN ---
Subjective This is a 81 year old male with a past medical history of coronary artery disease s/p CABG (KNUTSON to LAD, VG-D1) in 2004, Mitral valve repair in 2004, permanent atrial fibrillation on eliquis, hypertension, dyslipidemia, loop recorder implantation history of laryngela mass s/p tracheostomy and PEG tube as well as multiple comorbid conditions. He follows with Dr. Gleason. We have been asked to see patient for congestive heart failure. Patient is a extremely poor historian and he was extremely lethargic. The history was taken from the chart as well as from the nurse taking care of the patient. Apparently the patient was brought to the emergency department after he received a call from his primary care physician that his sodium was low. He was brought for further investigation. Subsequently nephrology was consulted and the patient received a dose of Lasix. The sodium this morning appeared to be slightly lower than yesterday. His 119 which has came down from 121. Echocardiogram revealed EF 5055% moderate aortic stenosis with a mean gradient of 25 mmHg. Moderate aortic regurgitation. 01/25 Patient seen and examined at bedside, no acute distress. Continues to be on IV Lasix. Sodium has improved. Patient with 1L urine output, Decreased weight noted. Labs: Sodium 130, potassium 3.9, BUN 34, serum creatinine 0.9 GENERAL: in no acute distress. NECK: Supple without JVD, Trach present LUNGS: Breath sounds rhonchi and crackles in bases to auscultation bilaterally. Respiration equal and unlabored. HEART: Irregular rate and rhythm with systolic ejection murmur, No rubs or gallops. S1 and S2 heard. EXTREMITIES: Normal range of motion, no edema. No clubbing or cyanosis. Peripheral pulses intact. 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 Patient was seen and examined. Objective - Vital Signs Vital signs: Vital Signs Temp 96.4 F L 01/25/22 08:15 Pulse 89 01/25/22 08:15 Resp 18 01/25/22 08:15 BP 129/71 01/25/22 08:15 Pulse Ox 90 L 01/25/22 08:15 FiO2 28 01/25/22 08:46 Intake & Output 01/24/22 01/25/22 01/25/22 18:59 06:59 18:59 Intake Total 360 400 200 Output Total 1000 Balance 360 -600 200 Weight 63 kg Intake: Oral 360 Tube Feeding 400 200 Output: Urine 1000 Condom 1000 Other: Voiding Method External Catheter External Catheter External Catheter - Labs CBC & Chem 7: 01/24/22 09:36 01/25/22 08:28 Labs: Abnormal Lab Results - Last 24 Hours (Table) 01/23/22 01/24/22 01/24/22 Range/Units 21:46 09:36 11:46 Sodium (137-145) mmol/L Chloride (98-107) mmol/L Carbon Dioxide (22-30) mmol/L BUN (9-20) mg/dL Glucose (74-99) mg/dL POC Glucose (mg/dL) 173 H (70-110) mg/dL TSH 0.182 L (0.465-4.680) mIU/L Free T4 5.88 H (0.78-2.19) ng/dL Ur Random Potassium 13.8 L (25.0-125.0) mmol/L 01/24/22 01/24/22 01/25/22 Range/Units 16:59 20:02 00:39 Sodium (137-145) mmol/L Chloride (98-107) mmol/L Carbon Dioxide (22-30) mmol/L BUN (9-20) mg/dL Glucose (74-99) mg/dL POC Glucose (mg/dL) 146 H 135 H 166 H (70-110) mg/dL TSH (0.465-4.680) mIU/L Free T4 (0.78-2.19) ng/dL Ur Random Potassium (25.0-125.0) mmol/L 01/25/22 01/25/22 Range/Units 05:45 08:28 Sodium 130 L (137-145) mmol/L Chloride 86 L (98-107) mmol/L Carbon Dioxide 38 H (22-30) mmol/L BUN 34 H (9-20) mg/dL Glucose 144 H (74-99) mg/dL POC Glucose (mg/dL) 167 H (70-110) mg/dL TSH (0.465-4.680) mIU/L Free T4 (0.78-2.19) ng/dL Ur Random Potassium (25.0-125.0) mmol/L Microbiology - Last 24 Hours (Table) 01/22/22 15:20 Blood Culture - Preliminary Blood No Growth after 48 hours 01/22/22 15:42 Blood Culture - Preliminary Blood No Growth after 48 hours 01/22/22 16:40 Gram Stain - Preliminary Sputum Sputum Culture - Preliminary Gram Neg Bacilli Gram Neg Bacilli#2
--- NOTE | 2022-01-25 11:55 | P.PN ---
Subjective Progress Note Date: 01/25/22 On today's evaluation of 01/25/2022, I came to evaluate and metastases Mr. Pires today. The patient has a tracheostomy tube in place. The patient is on a 40% trach collar. His resting comfortably in bed. However it is a bit lethargic. He is receiving enteral feeding for nutritional support 50cc/hr and he has a PEG tube in place. Does not seem to be in significant respiratory distress. I reviewed the records. I also talked to his . He has both cancer and the patient has not undergone any treatment yet. He has also extensive number of comorbid conditions including coronary artery disease, previous bypass surgery, prostate cancer, hypertension, hyperlipidemia, congestion heart failure, and more recently filled cancer. He has a paralyzed vocal cords. At the same time, the patient presented to us with a very low sodium level 119. He was replenished and his sodium level is up to 130. I reviewed the chest x-ray. 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 He has a Araiza catheter in place and is producing adequate amount of urine output. He remains on IV Lasix. Note that his proBNP level at the time of admission was considerably elevated at 14,900. Troponins were minimally elevated at 0.07, 0.06 and 0.07 respectively. Objective - Vital Signs Vital signs: Vital Signs Temp 96.4 F L 01/25/22 08:15 Pulse 89 01/25/22 08:15 Resp 18 01/25/22 08:15 BP 129/71 01/25/22 08:15 Pulse Ox 90 L 01/25/22 08:15 FiO2 28 01/25/22 08:46 Intake & Output 01/24/22 01/25/22 01/25/22 18:59 06:59 18:59 Intake Total 360 400 200 Output Total 1000 Balance 360 -600 200 Weight 63 kg Intake: Oral 360 Tube Feeding 400 200 Output: Urine 1000 Condom 1000 Other: Voiding Method External Catheter External Catheter External Catheter - Exam No acute distress, nonverbal, with a midline tracheostomy tube. HEENT examination is grossly unremarkable. Neck supple. Full range of motion. No adenopathy thyromegaly or neck vein distention. Midline tracheostomy tube is noted. The patient is receiving oxygen via a trach collar at 28%. Cardiovascular examination reveals regular rhythm rate. S1-S2 normal. No S3 or S4. No discernible murmur noted. Heart sounds are distant. Lungs reveal scattered bilateral rhonchi and crackles. No wheezes. Breath sounds equal bilaterally. Saturations are 95 %. Abdomen soft, without bowel sounds. PEG tube noted. No masses. Extremities are intact. No cyanosis clubbing or edema. Skin is without rash or lesion. Neurologic examination is brief but nonfocal. - Labs CBC & Chem 7: 01/24/22 09:36 01/25/22 08:28 Labs: Abnormal Lab Results - Last 24 Hours (Table) 01/23/22 01/24/22 01/24/22 Range/Units 21:46 11:46 16:59 Sodium (137-145) mmol/L Chloride (98-107) mmol/L Carbon Dioxide (22-30) mmol/L BUN (9-20) mg/dL Glucose (74-99) mg/dL POC Glucose (mg/dL) 173 H 146 H (70-110) mg/dL Ur Random Potassium 13.8 L (25.0-125.0) mmol/L 01/24/22 01/25/22 01/25/22 Range/Units 20:02 00:39 05:45 Sodium (137-145) mmol/L Chloride (98-107) mmol/L Carbon Dioxide (22-30) mmol/L BUN (9-20) mg/dL Glucose (74-99) mg/dL POC Glucose (mg/dL) 135 H 166 H 167 H (70-110) mg/dL Ur Random Potassium (25.0-125.0) mmol/L 01/25/22 Range/Units 08:28 Sodium 130 L (137-145) mmol/L Chloride 86 L (98-107) mmol/L Carbon Dioxide 38 H (22-30) mmol/L BUN 34 H (9-20) mg/dL Glucose 144 H (74-99) mg/dL POC Glucose (mg/dL) (70-110) mg/dL Ur Random Potassium (25.0-125.0) mmol/L Microbiology - Last 24 Hours (Table) 01/22/22 15:20 Blood Culture - Preliminary Blood No Growth after 48 hours 01/22/22 15:42 Blood Culture - Preliminary Blood No Growth after 48 hours 01/22/22 16:40 Gram Stain - Preliminary Sputum Sputum Culture - Preliminary Gram Neg Bacilli Gram Neg Bacilli#2 Assessment and Plan Plan: Shortness of breath, with evidence of CHF/pulmonary edema on chest x-ray, as well as an elevated N-terminal proBNP.patient has produced excellent amount of urine and is responding well to diuretics receiving Lasix 20 mg IV every 12 hours. Araiza catheter still in place. History of throat cancer, status post tracheostomy. Hypervolemic hyponatremia, improving and his sodium level is up to 130 asbestosis Vocal cord paralysis. History of PEG tube placement. History of CVA. History of hyperlipidemia. History of hypertension. History of shingles. Prostate cancer, 2004, status post radiation treatment. Previous history of bypass grafting. Prior history of tobacco use. History of depression. Plan: Monitor mental status, to me, he looks lethargic and he needs to gradually impr ove. Sodium level is up to 1:30 Continue diuretics Repeat chest x-ray Continue enteral feeding for nutritional support We'll continue to follow.
[2022-01-25 11:58] LABS: Glucose,Whole Blood 162 mg/dL (70-110)
[2022-01-25 16:46] LABS: Glucose,Whole Blood 139 mg/dL (70-110)
[2022-01-25 19:47] LABS: Glucose,Whole Blood 152 mg/dL (70-110)
[2022-01-25] MEDS: ATORVASTATIN 80 MG TAB PEG/G-TUBE SCH (20:26)
[2022-01-25] MEDS: TAMSULOSIN 0.4 MG CAP.ER.24H PO SCH (20:26)
[2022-01-25] MEDS: ALPRAZolam 0.25 MG TAB PEG/G-TUBE SCH (20:26)
[2022-01-25 23:52] LABS: Glucose,Whole Blood 138 mg/dL (70-110)
[2022-01-26 05:36] LABS: Glucose,Whole Blood 154 mg/dL (70-110)
[2022-01-26] MEDS: PANTOPRAZOLE 40 MG TABLET PO SCH (06:21)
[2022-01-26] MEDS: methIMAzole 5 MG TAB PO SCH ×3 (08:16→21:36)
[2022-01-26] MEDS: APIXABAN 5 MG TAB PEG/G-TUBE SCH ×2 (08:16→21:36)
[2022-01-26] MEDS: PREGABALIN 75 MG CAP PO SCH ×2 (08:17→21:36)
[2022-01-26] MEDS: PRIMIDONE 50 MG TAB PEG/G-TUBE SCH ×2 (08:17→21:36)
[2022-01-26] MEDS: FUROSEMIDE 10 MG/ML 2 ML VIAL IV SCH (08:17)
[2022-01-26] MEDS: LATANOPROST 0.005% OPHTH DROPS 2.5 ML BTL BOTH EYES SCH (08:17)
[2022-01-26] MEDS: AMIODARONE 200 MG TAB PEG/G-TUBE SCH (08:17)
[2022-01-26] MEDS: TIMOLOL 0.5% OPHTH DROPS 5 ML BTL BOTH EYES SCH (08:18)
--- NOTE | 2022-01-26 08:46 | XR ---
EXAMINATION TYPE: XR chest 1V DATE OF EXAM: 01/26/2022 COMPARISON: 01/22/2022 HISTORY: 81-year-old male with CHF TECHNIQUE: Single frontal view of the chest is obtained. FINDINGS: Tracheostomy cannula. Median sternotomy wires with post-CABG clips. Reverse right shoulder arthroplas ty. PEG tube is noted. Loop recorder device projects along the periphery of the left chest. Suspect b ilateral calcified pleural plaques. Superimposed interstitial and patchy opacities not significantly changed. Heart mildly enlarged. IMPRESSION: Redemonstrated bilateral calcified pleural plaques suggesting prior asbestos exposure. S imilar mild cardiomegaly and bilateral interstitial and patchy opacities that may reflect CHF with va scular congestion and mild patchy pulmonary edema.
[2022-01-26 08:54] LABS: Calcium 8.3 mg/dL (8.4-10.2); Potassium 3.8 mmol/L (3.5-5.1)
--- NOTE | 2022-01-26 09:33 | P.PN ---
Subjective Progress Note Date: 01/25/22 This is a pleasant 81 years old male with past medical history of CVA/TIA, GERD/Reflux, Hyperlipidemia, Hypertension, shingles few yrs ago-still w/residual leg pain, tremors, hx. prostate cancer 2004 w/radiation tx., h/o Coronary Bypass/CABG, , valve repair, history of atrial fibrillation Patient sent by his PCP Dr. Paul for low sodium of 121 patient is awake alert and follows commands but is poor historian. He denies dyspnea but is lying in bed most of the time, no leg edema however he has bilateral basilar crepitations on some dependent trunk edema. No chest pain or abdominal pain. No rash or redness of the skin. Patient has trach collar with 5 L/m of oxygen. He has PEG tube and external urine catheter Patient blood pressure on low normal side 87/55, he is on 5 L/m off trach collar. Slightly tachypneic about 19 breast permanent and afebrile. WBC 11.1, hemoglobin 10.7. Sodium 120 and 119. His BMP is unremarkable. Elevated troponin 0.07 and 0.06 and 0.07. Elevated proBNP 140 900. Urine analysis is negative. Stewart virus is not detected. EKG showing atrial flutter with a rate of 120. Chest x-ray: Extensive calcified pleural plaque. There is evidence of congestive heart failure with pulmonary edema which is mostly new compared to yesterday small pleural effusions are unchanged 01/24/2022 Patient improving slowly and gradually. No shortness of breath while at rest. He is breathing quietly. His sodium is also improving up to 128, and is kept on IV Lasix 20 mg twice daily. Augmentin Kumpe discontinue it. The procalcitonin is negative. Also patient has evidence of hyperthyroidism with T4 is 5.8 and low TSH 0.2. Patient is a started on methimazole. With recommendation for outpatient follow- up with executive sous chef. Patient continued on a liquid 5 mg for his chronic atrial fibrillation He is getting tube feeds at 30 mL/h He has Araiza catheter with clear urine 01/25/2022 Patient is currently lying in bed comfortably. Awake alert and oriented but lethargic. On 40% FiO2 by trach collar. Sodium level improved to 130 today. Patient is tolerating PEG tube feeding. Araiza catheter in place. Patient is being continued on Lasix 20 mg IV twice a day. Anticoagulation with eliquis and also on amiodarone. Laboratory data showed sodium 1:30 potassium 3.9 chloride 86 bicarb is 38 BUN 34 and creatinine 0.97 and blood sugar is 144 Current medications reviewed. Objective - Vital Signs Vital signs: Vital Signs Temp 96.4 F L 01/25/22 08:15 Pulse 89 01/25/22 08:15 Resp 18 01/25/22 08:15 BP 129/71 01/25/22 08:15 Pulse Ox 90 L 01/25/22 08:15 FiO2 28 01/25/22 08:46 Intake & Output 01/24/22 01/25/22 01/25/22 18:59 06:59 18:59 Intake Total 360 400 200 Output Total 1000 Balance 360 -600 200 Weight 63 kg Intake: Oral 360 Tube Feeding 400 200 Output: Urine 1000 Condom 1000 Other: Voiding Method External Catheter External Catheter External Catheter - Exam - Exam GENERAL: The patient is alert and oriented x3, not in any acute distress. Well developed, well nourished. -HEENT: Pupils are round and equally reacting to light. EOMI. No scleral icterus. No conjunctival pallor. Normocephalic, atraumatic. No pharyngeal erythema. No thyromegaly. Trach collar in place CARDIOVASCULAR: S1 and S2 present. No murmurs, rubs, or gallops. PULMONARY: Chest is clear to auscultation, no wheezing or crackles. -ABDOMEN: Soft, nontender, nondistended, normoactive bowel sounds. No palpable organomegaly. PEG tube and a Place MUSCULOSKELETAL: No joint swelling or deformity. EXTREMITIES: No cyanosis, clubbing, or pedal edema. NEUROLOGICAL: Gross neurological examination did not reveal any focal deficits. SKIN: No rashes. no petechiae. - Labs CBC & Chem 7: 01/24/22 09:36 01/26/22 08:16 Labs: Abnormal Lab Results - Last 24 Hours (Table) 01/23/22 01/24/22 01/24/22 Range/Units 21:46 09:36 11:46 Sodium (137-145) mmol/L Chloride (98-107) mmol/L Carbon Dioxide (22-30) mmol/L BUN (9-20) mg/dL Glucose (74-99) mg/dL POC Glucose (mg/dL) 173 H (70-110) mg/dL TSH 0.182 L (0.465-4.680) mIU/L Free T4 5.88 H (0.78-2.19) ng/dL Ur Random Potassium 13.8 L (25.0-125.0) mmol/L 01/24/22 01/24/22 01/25/22 Range/Units 16:59 20:02 00:39 Sodium (137-145) mmol/L Chloride (98-107) mmol/L Carbon Dioxide (22-30) mmol/L BUN (9-20) mg/dL Glucose (74-99) mg/dL POC Glucose (mg/dL) 146 H 135 H 166 H (70-110) mg/dL TSH (0.465-4.680) mIU/L Free T4 (0.78-2.19) ng/dL Ur Random Potassium (25.0-125.0) mmol/L 01/25/22 01/25/22 Range/Units 05:45 08:28 Sodium 130 L (137-145) mmol/L Chloride 86 L (98-107) mmol/L Carbon Dioxide 38 H (22-30) mmol/L BUN 34 H (9-20) mg/dL Glucose 144 H (74-99) mg/dL POC Glucose (mg/dL) 167 H (70-110) mg/dL TSH (0.465-4.680) mIU/L Free T4 (0.78-2.19) ng/dL Ur Random Potassium (25.0-125.0) mmol/L Microbiology - Last 24 Hours (Table) 01/22/22 15:20 Blood Culture - Preliminary Blood No Growth after 48 hours 01/22/22 15:42 Blood Culture - Preliminary Blood No Growth after 48 hours 01/22/22 16:40 Gram Stain - Preliminary Sputum Sputum Culture - Preliminary Gram Neg Bacilli Gram Neg Bacilli#2 Assessment and Plan Assessment: Acute on Chronic CHF exacerbation. Preserved EF. 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 Discontinue propranolol and continue with him amiodarone per Japanese Professor Labs and medication were reviewed. Monitor lytes and vitals. DVT prophylaxis: eliquis GI Prophylaxis: Pepcid Prognosis is guarded Time with Patient: Greater than 30
--- NOTE | 2022-01-26 10:27 | P.PN ---
Subjective Patient is seen in follow-up for hyponatremia. Sodium level improving. Receiving tube feeds. Also on IV Lasix. Blood pressure stable. No changes overnight. Vital signs are stable. General: Resting in bed. HEENT: Head exam is unremarkable. Trach collar noted. LUNGS: Breath sounds decreased. HEART: Rate and Rhythm are regular. ABDOMEN: Soft, no distention. EXTREMITITES: No edema. Objective - Vital Signs Vital signs: Vital Signs Temp 97.6 F 01/25/22 23:40 Pulse 95 01/26/22 08:04 Resp 18 01/26/22 08:04 BP 111/68 01/26/22 08:04 Pulse Ox 94 L 01/26/22 08:04 FiO2 28 01/26/22 09:10 Intake & Output 01/25/22 01/26/22 01/26/22 18:59 06:59 18:59 Intake Total 718 500 Output Total 900 500 Balance -182 0 Weight 63 kg 73 kg Intake: Oral 118 Tube Feeding 600 500 Output: Urine 900 500 Other: Voiding Method External Catheter External Catheter - Labs CBC & Chem 7: 01/24/22 09:36 01/26/22 08:16 Labs: Abnormal Lab Results - Last 24 Hours (Table) 01/25/22 01/25/22 01/25/22 Range/Units 11:56 16:44 19:45 Sodium (137-145) mmol/L Chloride (98-107) mmol/L Carbon Dioxide (22-30) mmol/L BUN (9-20) mg/dL Glucose (74-99) mg/dL POC Glucose (mg/dL) 162 H 139 H 152 H (70-110) mg/dL Calcium (8.4-10.2) mg/dL 01/25/22 01/26/22 01/26/22 Range/Units 23:51 05:35 08:16 Sodium 132 L (137-145) mmol/L Chloride 86 L (98-107) mmol/L Carbon Dioxide 40 H (22-30) mmol/L BUN 36 H (9-20) mg/dL Glucose 144 H (74-99) mg/dL POC Glucose (mg/dL) 138 H 154 H (70-110) mg/dL Calcium 8.3 L (8.4-10.2) mg/dL Microbiology - Last 24 Hours (Table) 01/22/22 15:20 Blood Culture - Preliminary Blood No Growth after 72 hours 01/22/22 15:42 Blood Culture - Preliminary Blood No Growth after 72 hours 01/22/22 16:40 Gram Stain - Preliminary Sputum Sputum Culture - Preliminary Klebsiella pneumoniae Gram Neg Bacilli Assessment and Plan Plan: Assessment: 1. Hyponatremia. Better. Was hypervolemic, now euvolemic. Underlying SIADH from malignancy. Urine sodium 68, urine osmolality 217. Cortisol not low. TSH low. 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 Vocal cord paralysis. 4. Status post PEG tube placement. 5. Acute on chronic diastolic CHF with moderate aortic stenosis, moderate aortic regurgitation and moderate pulmonary hypertension. Plan: Maintain tube feeds. Change Lasix to oral. Repeat BMP and magnesium level 2-3 days postdischarge. Follow up outpatient in 1 week
[2022-01-26 10:53] LABS: Basophils % (A) 1 %; Eosinophils # (A) 0.3 k/uL (0-0.7); Eosinophils % (A) 3 %; HCT 33.4 % (39.0-53.0); HGB 10.8 gm/dL (13.0-17.5); Hypochromasia Slight; Lymphocytes # (A) 1.1 k/uL (1.0-4.8); Lymphocytes % (A) 13 %; MCH 32.6 pg (25.0-35.0); MCHC 32.4 g/dL (31.0-37.0); MCV 100.6 fL (80.0-100.0); Macrocytosis Slight; Monocytes # (A) 0.6 k/uL (0-1.0); Monocytes % (A) 7 %; Neutrophils % (A) 74 %; Platelet Count 340 k/uL (150-450); RBC 3.32 m/uL (4.30-5.90); RDW 14.8 % (11.5-15.5); WBC 8.2 k/uL (3.8-10.6)
[2022-01-26 11:35] LABS: Glucose,Whole Blood 155 mg/dL (70-110)
[2022-01-26] MEDS: LEVOFLOXACIN 500MG-D5W PMX 500 MG in DEXTROSE/WATER 1 100ML.BAG IVPB SCH (11:53)
--- NOTE | 2022-01-26 12:21 | P.PN ---
Subjective This is a 81 year old male with a past medical history of coronary artery disease s/p CABG (KNUTSON to LAD, VG-D1) in 2004, Mitral valve repair in 2004, permanent atrial fibrillation on eliquis, hypertension, dyslipidemia, loop recorder implantation history of laryngela mass s/p tracheostomy and PEG tube as well as multiple comorbid conditions. He follows with Dr. Gleason. We have been asked to see patient for congestive heart failure. Patient is a extremely poor historian and he was extremely lethargic. The history was taken from the chart as well as from the nurse taking care of the patient. Apparently the patient was brought to the emergency department after he received a call from his primary care physician that his sodium was low. He was brought for further investigation. Subsequently nephrology was consulted and the patient received a dose of Lasix. The sodium this morning appeared to be slightly lower than yesterday. His 119 which has came down from 121. Echocardiogram revealed EF 5055% moderate aortic stenosis with a mean gradient of 25 mmHg. Moderate aortic regurgitation. 01/26 Patient seen and examined at bedside, no acute distress. Transitioned to PO Lasix per nephrology. Sodium has improved. serum creatinine stable Patient with 1.4L urine output, Weight does not appear accurate. Labs: Sodium 132, potassium 3.8, BUN 36, serum creatinine 0.94 GENERAL: in no acute distress. NECK: Supple without JVD, Trach present LUNGS: Breath sounds rhonchi and crackles in bases to auscultation bilaterally. Respiration equal and unlabored. HEART: Irregular rate and rhythm with systolic ejection murmur, No rubs or ga llops. S1 and S2 heard. EXTREMITIES: Normal range of motion, no edema. No clubbing or cyanosis. Per ipheral pulses intact. 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 Gleason No further changes from a cardiology perspective. We'll follow the patient as needed. Please reconsult if needed. Nurse Practitioner note has been reviewed, I agree with a documented findings and plan of care. Patient was seen and examined. Objective - Vital Signs Vital signs: Vital Signs Temp 97.6 F 01/25/22 23:40 Pulse 95 01/26/22 08:04 Resp 18 01/26/22 08:04 BP 111/68 01/26/22 08:04 Pulse Ox 94 L 01/26/22 08:04 FiO2 28 01/26/22 09:10 Intake & Output 01/25/22 01/26/22 01/26/22 18:59 06:59 18:59 Intake Total 718 500 Output Total 900 500 Balance -182 0 Weight 63 kg 73 kg Intake: Oral 118 Tube Feeding 600 500 Output: Urine 900 500 Other: Voiding Method External Catheter External Catheter External Catheter # Voids 1 # Bowel Movements 1 - Labs CBC & Chem 7: 01/26/22 08:16 01/26/22 08:16 Labs: Abnormal Lab Results - Last 24 Hours (Table) 01/25/22 01/25/22 01/25/22 Range/Units 16:44 19:45 23:51 RBC (4.30-5.90) m/uL Hgb (13.0-17.5) gm/dL Hct (39.0-53.0) % MCV (80.0-100.0) fL Sodium (137-145) mmol/L Chloride (98-107) mmol/L Carbon Dioxide (22-30) mmol/L BUN (9-20) mg/dL Glucose (74-99) mg/dL POC Glucose (mg/dL) 139 H 152 H 138 H (70-110) mg/dL Calcium (8.4-10.2) mg/dL 01/26/22 01/26/22 01/26/22 Range/Units 05:35 08:16 08:16 RBC 3.32 L (4.30-5.90) m/uL Hgb 10.8 L (13.0-17.5) gm/dL Hct 33.4 L (39.0-53.0) % MCV 100.6 H (80.0-100.0) fL Sodium 132 L (137-145) mmol/L Chloride 86 L (98-107) mmol/L Carbon Dioxide 40 H (22-30) mmol/L BUN 36 H (9-20) mg/dL Glucose 144 H (74-99) mg/dL POC Glucose (mg/dL) 154 H (70-110) mg/dL Calcium 8.3 L (8.4-10.2) mg/dL 01/26/22 Range/Units 11:33 RBC (4.30-5.90) m/uL Hgb (13.0-17.5) gm/dL Hct (39.0-53.0) % MCV (80.0-100.0) fL Sodium (137-145) mmol/L Chloride (98-107) mmol/L Carbon Dioxide (22-30) mmol/L BUN (9-20) mg/dL Glucose (74-99) mg/dL POC Glucose (mg/dL) 155 H (70-110) mg/dL Calcium (8.4-10.2) mg/dL Microbiology - Last 24 Hours (Table) 01/22/22 16:40 Gram Stain - Final Sputum Sputum Culture - Final Klebsiella pneumoniae Achromobacter species 01/22/22 15:20 Blood Culture - Preliminary Blood No Growth after 72 hours 01/22/22 15:42 Blood Culture - Preliminary Blood No Growth after 72 hours
[2022-01-26] MEDS ORDERED: RX INFO: IV CONTRAST WAS GIVEN 1 EACH MISC MISCELLANE PRN (12:32)
--- NOTE | 2022-01-26 12:35 | P.PN ---
Subjective Progress Note Date: 01/26/22 On today's evaluation of 01/25/2022, I came to evaluate and metastases Mr. Pires today. The patient has a tracheostomy tube in place. The patient is on a 40% trach collar. His resting comfortably in bed. However it is a bit lethargic. He is receiving enteral feeding for nutritional support 50cc/hr and he has a PEG tube in place. Does not seem to be in significant respiratory distress. I reviewed the records. I also talked to his . He has both cancer and the patient has not undergone any treatment yet. He has also extensive number of comorbid conditions including coronary artery disease, previous bypass surgery, prostate cancer, hypertension, hyperlipidemia, congestion heart failure, and more recently filled cancer. He has a paralyzed vocal cords. At the same time, the patient presented to us with a very low sodium level 119. He was replenished and his sodium level is up to 130. I reviewed the chest x-ray. 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 He has a Araiza catheter in place and is producing adequate amount of urine output. He remains on IV Lasix. Note that his proBNP level at the time of admission was considerably elevated at 14,900. Troponins were minimally elevated at 0.07, 0.06 and 0.07 respectively. Today's evaluation of 01/26/2022, the patient is very slow in answering quest ions. He is awake. He communicates. He follows simple commands. Nevertheless, is extensively weak in all 4 extremities and he has a very blunt affect. Looks around and he does not initiate any communication. His oral intake has been also minimal. The tried to feed him and his intake was probably around 5-10% of the entire meal. He did have Klebsiella and Achromobacter species in his sputum. The patient's repeat chest x-ray showed cardiomegaly and increased pulmonary vascular markings bilaterally and the findings of essentially the same. He also has calcified pleural plaques sugg estive of previous asbestos exposure. There may be an underlying CHF in addition. In the right, the patient was being the reason IV Lasix 20 mg every 12 hours. He is producing excellent urine output and he has produced approximately 4-0.7 L over the past 48 hours. His blood work is showing a white cell count of 8.2 with a hemoglobin of 10.8, his serum sodium is improved and felt to 132. His pro calcitonin level was at 0.04. Objective - Vital Signs Vital signs: Vital Signs Temp 97.6 F 01/25/22 23:40 Pulse 95 01/26/22 08:04 Resp 18 01/26/22 08:04 BP 111/68 01/26/22 08:04 Pulse Ox 94 L 01/26/22 08:04 FiO2 28 01/26/22 09:10 Intake & Output 01/25/22 01/26/22 01/26/22 18:59 06:59 18:59 Intake Total 718 500 Output Total 900 500 Balance -182 0 Weight 63 kg 73 kg Intake: Oral 118 Tube Feeding 600 500 Output: Urine 900 500 Other: Voiding Method External Catheter External Catheter External Catheter # Voids 1 # Bowel Movements 1 - Exam No acute distress, nonverbal, with a midline tracheostomy tube. HEENT examination is grossly unremarkable. Neck supple. Full range of motion. No adenopathy thyromegaly or neck vein distention. Midline tracheostomy tube is noted. The patient is receiving oxygen via a trach collar at 28%. Cardiovascular examination reveals regular rhythm rate. S1-S2 normal. No S3 or S4. No discernible murmur noted. Heart sounds are distant. Lungs reveal scattered bilateral rhonchi and crackles. No wheezes. Breath sounds equal bilaterally. Saturations are 95 %. Abdomen soft, without bowel sounds. PEG tube noted. No masses. Extremities are intact. No cyanosis clubbing or edema. Skin is without rash or lesion. Neurologic examination is brief but nonfocal. - Labs CBC & Chem 7: 01/26/22 08:16 01/26/22 08:16 Labs: Abnormal Lab Results - Last 24 Hours (Table) 01/25/22 01/25/22 01/25/22 Range/Units 16:44 19:45 23:51 RBC (4.30-5.90) m/uL Hgb (13.0-17.5) gm/dL Hct (39.0-53.0) % MCV (80.0-100.0) fL Sodium (137-145) mmol/L Chloride (98-107) mmol/L Carbon Dioxide (22-30) mmol/L BUN (9-20) mg/dL Glucose (74-99) mg/dL POC Glucose (mg/dL) 139 H 152 H 138 H (70-110) mg/dL Calcium (8.4-10.2) mg/dL 01/26/22 01/26/22 01/26/22 Range/Units 05:35 08:16 08:16 RBC 3.32 L (4.30-5.90) m/uL Hgb 10.8 L (13.0-17.5) gm/dL Hct 33.4 L (39.0-53.0) % MCV 100.6 H (80.0-100.0) fL Sodium 132 L (137-145) mmol/L Chloride 86 L (98-107) mmol/L Carbon Dioxide 40 H (22-30) mmol/L BUN 36 H (9-20) mg/dL Glucose 144 H (74-99) mg/dL POC Glucose (mg/dL) 154 H (70-110) mg/dL Calcium 8.3 L (8.4-10.2) mg/dL 01/26/22 Range/Units 11:33 RBC (4.30-5.90) m/uL Hgb (13.0-17.5) gm/dL Hct (39.0-53.0) % MCV (80.0-100.0) fL Sodium (137-145) mmol/L Chloride (98-107) mmol/L Carbon Dioxide (22-30) mmol/L BUN (9-20) mg/dL Glucose (74-99) mg/dL POC Glucose (mg/dL) 155 H (70-110) mg/dL Calcium (8.4-10.2) mg/dL Microbiology - Last 24 Hours (Table) 01/22/22 16:40 Gram Stain - Final Sputum Sputum Culture - Final Klebsiella pneumoniae Achromobacter species 01/22/22 15:20 Blood Culture - Preliminary Blood No Growth after 72 hours 01/22/22 15:42 Blood Culture - Preliminary Blood No Growth after 72 hours Assessment and Plan Plan: Shortness of breath, with evidence of CHF/pulmonary edema on chest x-ray, as well as an elevated N-terminal proBNP.patient has produced excellent amount of urine and is responding well to diuretics receiving Lasix 20 mg IV every 12 hours. Araiza catheter still in place. X-ray showing pleural calcification and thickening consistent with previous asbestos exposure. There is some increased interstitial markings/CHF which is still present. Rule out chronic ILD, rule out CHF with preserved LV function. Klebsiella and Enterobacter in his sputum. Colonization over infection. The pro-calcitonin level has been low. Lethargy with diminished level of consciousness. The patient has profound weakness, less interactive. This was initially thought to be metabolic as the patient's sodium level was low. Nevertheless, the sodium level improved the patient continues to be quite lethargic. He has had previous CVA. History of throat cancer, status post tracheostomy. Hypervolemic hyponatremia, improving and his sodium level is improving asbestosis Vocal cord paralysis. History of PEG tube placement. History of CVA. History of hyperlipidemia. History of hypertension. History of shingles. Prostate cancer, 2004, status post radiation treatment. Previous history of bypass grafting. Prior history of tobacco use. History of depression. Plan: NONCONTRAST CAT SCAN OF THE BRAIN Obtain a contrast enhanced CAT scan of the chest Levaquin was started by the primary care physician team We will review the CAT scan of the chest and will make adjustments if needed Continue diuretics for another 24 hours Monitor electrolytes Monitor mental status, to me, he looks lethargic and he needs to gradually improve. Sodium level is up to 132 Continue enteral feeding for nutritional support We'll continue to follow.
[2022-01-26 16:58] LABS: Glucose,Whole Blood 98 mg/dL (70-110)
[2022-01-26] MEDS: FUROSEMIDE 20 MG TAB PO SCH (16:59)
--- NOTE | 2022-01-26 17:17 | CT ---
EXAMINATION TYPE: CT brain wo con DATE OF EXAM: 01/26/2022 COMPARISON: 12/08/2019 HISTORY: AMS CT DLP: 1232.4 mGycm Automated exposure control for dose reduction was used. Images of the brain obtained without contrast. There is enlargement of the ventricles. There is a 4 cm hypodensity left posterior temporal lobe rela lesley to old infarct. There is 2 cm hypodensity right occipital lobe related to old infarct. No mass ef fect or midline shift. No sign of intracranial hemorrhage. The calvarium is intact. There is hypodens ity in the periventricular white matter. There is old right occipital lobe 2 cm cortical infarct. IMPRESSION: Old bilateral occipital lobe infarcts. Old left posterior temporal lobe infarct. Chronic small vessel ischemia. Cerebral atrophy. No significant change compared to the old exam.
--- NOTE | 2022-01-26 17:39 | CT ---
EXAMINATION TYPE: CT chest w con DATE OF EXAM: 01/26/2022 COMPARISON: None HISTORY: Hypoxemia. AMS CT DLP: 281.3 mGycm Automated exposure control for dose reduction was used. CONTRAST: Performed with IV Contrast, patient injected with 90 mL of Isovue 370. Images obtained from the thoracic inlet through the diaphragm with the IV contrast. There is moderate bilateral anterior and posterior calcified pleural plaque. There is small pleural e ffusions. Liver is intact. Spleen is intact. There is extensive diaphragmatic pleural calcification. Heart is enlarged. No pericardial effusion. There are no hilar masses. No mediastinal adenopathy. The re are paratracheal lymph nodes measuring up to 1.5 cm. There is coarse interstitial density in the l ungs. There is some spurring in the thoracic spine. There are sternal wires. There is tracheostomy tu be. IMPRESSION: Extensive calcified pleural plaque. Cardiomegaly. Atheromatous aorta. 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 Calcified pleural plaque and pleural fluid increased compared to abdomen and CT scan of 08/27/2011. Small pleural effusion at the lung bases and mild basilar pulmonary infiltrates.
[2022-01-26] MEDS: ACETAMINOPHEN TAB 325 MG TAB PO PRN (18:29)
[2022-01-26 21:15] LABS: Glucose,Whole Blood 159 mg/dL (70-110)
[2022-01-26] MEDS: TAMSULOSIN 0.4 MG CAP.ER.24H PO SCH (21:36)
[2022-01-26] MEDS: ATORVASTATIN 80 MG TAB PEG/G-TUBE SCH (21:36)
[2022-01-27] MEDS: ALPRAZolam 0.25 MG TAB PEG/G-TUBE SCH (00:01)
[2022-01-27] MEDS: PANTOPRAZOLE 40 MG TABLET PO SCH (06:31)
[2022-01-27] MEDS: FUROSEMIDE 20 MG TAB PO SCH ×2 (08:52→16:00)
[2022-01-27] MEDS: APIXABAN 5 MG TAB PEG/G-TUBE SCH ×2 (08:53→21:21)
[2022-01-27] MEDS: methIMAzole 5 MG TAB PO SCH ×3 (08:53→21:21)
[2022-01-27] MEDS: AMIODARONE 200 MG TAB PEG/G-TUBE SCH (08:53)
[2022-01-27] MEDS: PRIMIDONE 50 MG TAB PEG/G-TUBE SCH ×2 (08:53→21:20)
[2022-01-27] MEDS: LATANOPROST 0.005% OPHTH DROPS 2.5 ML BTL BOTH EYES SCH (08:54)
[2022-01-27] MEDS: TIMOLOL 0.5% OPHTH DROPS 5 ML BTL BOTH EYES SCH (08:54)
[2022-01-27] MEDS: PREGABALIN 75 MG CAP PO SCH ×2 (08:55→21:21)
[2022-01-27 10:03] LABS: Calcium 8.3 mg/dL (8.4-10.2)
[2022-01-27 10:04] LABS: Basophils # (A) 0.1 k/uL (0-0.2); Basophils % (A) 1 %; Eosinophils # (A) 0.3 k/uL (0-0.7); Eosinophils % (A) 2 %; HCT 32.3 % (39.0-53.0); HGB 10.4 gm/dL (13.0-17.5); Hypochromasia Slight; Lymphocytes # (A) 1.3 k/uL (1.0-4.8); Lymphocytes % (A) 13 %; MCH 32.6 pg (25.0-35.0); MCHC 32.3 g/dL (31.0-37.0); Macrocytosis Slight; Mean Platelet Volume 8.4; Monocytes # (A) 0.5 k/uL (0-1.0); Monocytes % (A) 5 %; Neutrophils # (A) 7.9 k/uL (1.3-7.7); Neutrophils % (A) 76 %; Platelet Count 295 k/uL (150-450); RBC 3.19 m/uL (4.30-5.90); RDW 14.8 % (11.5-15.5); WBC 10.4 k/uL (3.8-10.6)
--- NOTE | 2022-01-27 11:43 | P.PN ---
Subjective Patient is seen in follow-up for hyponatremia. Sodium level improving. Receiving tube feeds. Also on IV Lasix. Blood pressure stable. No changes overnight. Vital signs are stable. General: Resting in bed. HEENT: Head exam is unremarkable. Trach collar noted. LUNGS: Breath sounds decreased. HEART: Rate and Rhythm are regular. ABDOMEN: Soft, no distention. EXTREMITITES: No edema. Objective - Vital Signs Vital signs: Vital Signs Temp 98.4 F 01/27/22 04:55 Pulse 65 01/27/22 08:00 Resp 20 01/27/22 08:00 BP 108/54 01/27/22 08:00 Pulse Ox 94 L 01/27/22 08:00 FiO2 28 01/27/22 11:30 Intake & Output 01/26/22 01/27/22 01/27/22 18:59 06:59 18:59 Intake Total 250 1119 Output Total 750 Balance 250 369 Weight 64 kg Intake: Tube Feeding 250 1119 Output: Urine 750 Other: Voiding Method External Catheter External Catheter External Catheter # Voids 1 # Bowel Movements 1 - Labs CBC & Chem 7: 01/27/22 08:42 01/27/22 08:42 Labs: Abnormal Lab Results - Last 24 Hours (Table) 01/26/22 01/27/22 01/27/22 Range/Units 21:13 08:42 08:42 RBC 3.19 L (4.30-5.90) m/uL Hgb 10.4 L (13.0-17.5) gm/dL Hct 32.3 L (39.0-53.0) % MCV 101.0 H (80.0-100.0) fL Neutrophils # 7.9 H (1.3-7.7) k/uL Sodium 133 L (137-145) mmol/L Chloride 88 L (98-107) mmol/L Carbon Dioxide 39 H (22-30) mmol/L BUN 39 H (9-20) mg/dL Glucose 136 H (74-99) mg/dL POC Glucose (mg/dL) 159 H (70-110) mg/dL Calcium 8.3 L (8.4-10.2) mg/dL Microbiology - Last 24 Hours (Table) 01/22/22 15:20 Blood Culture - Preliminary Blood No Growth after 96 hours 01/22/22 15:42 Blood Culture - Preliminary Blood No Growth after 96 hours 01/22/22 16:40 Gram Stain - Final Sputum Sputum Culture - Final Klebsiella pneumoniae Achromobacter species Assessment and Plan Plan: Assessment: 1. Hyponatremia. Better. Was hypervolemic, now euvolemic. Underlying SIADH from malignancy. Urine sodium 68, urine osmolality 217. Cortisol not low. TSH low. 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 Vocal cord paralysis. 4. Status post PEG tube placement. 5. Acute on chronic diastolic CHF with moderate aortic stenosis, moderate aortic regurgitation and moderate pulmonary hypertension. Plan: Maintain tube feeds. Maintain oral Lasix. Repeat BMP and magnesium level 2-3 days postdischarge. Follow up outpatient in 1 week
[2022-01-27 12:02] LABS: Glucose,Whole Blood 148 mg/dL (70-110)
[2022-01-27] MEDS ORDERED: ALPRAZolam 0.25 MG TAB PEG/G-TUBE PRN (12:32)
--- NOTE | 2022-01-27 12:35 | P.PN ---
Subjective Progress Note Date: 01/27/22 On today's evaluation of 01/25/2022, I came to evaluate and metastases Mr. Pires today. The patient has a tracheostomy tube in place. The patient is on a 40% trach collar. His resting comfortably in bed. However it is a bit lethargic. He is receiving enteral feeding for nutritional support 50cc/hr and he has a PEG tube in place. Does not seem to be in significant respiratory distress. I reviewed the records. I also talked to his . He has both cancer and the patient has not undergone any treatment yet. He has also extensive number of comorbid conditions including coronary artery disease, previous bypass surgery, prostate cancer, hypertension, hyperlipidemia, congestion heart failure, and more recently filled cancer. He has a paralyzed vocal cords. At the same time, the patient presented to us with a very low sodium level 119. He was replenished and his sodium level is up to 130. I reviewed the chest x-ray. 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 He has a Araiza catheter in place and is producing adequate amount of urine output. He remains on IV Lasix. Note that his proBNP level at the time of admission was considerably elevated at 14,900. Troponins were minimally elevated at 0.07, 0.06 and 0.07 respectively. Today's evaluation of 01/26/2022, the patient is very slow in answering quest ions. He is awake. He communicates. He follows simple commands. Nevertheless, is extensively weak in all 4 extremities and he has a very blunt affect. Looks around and he does not initiate any communication. His oral intake has been also minimal. The tried to feed him and his intake was probably around 5-10% of the entire meal. He did have Klebsiella and Achromobacter species in his sputum. The patient's repeat chest x-ray showed cardiomegaly and increased pulmonary vascular markings bilaterally and the findings of essentially the same. He also has calcified pleural plaques sugg estive of previous asbestos exposure. There may be an underlying CHF in addition. In the right, the patient was being the reason IV Lasix 20 mg every 12 hours. He is producing excellent urine output and he has produced approximately 4-0.7 L over the past 48 hours. His blood work is showing a white cell count of 8.2 with a hemoglobin of 10.8, his serum sodium is improved and felt to 132. His pro calcitonin level was at 0.04. 01/27/2022, I'm seeing the patient for a follow-up. He seems to much more awake compared to yesterday. He is easily arousable. The has noted that the patient's level of alertness is also improved. I was concerned about that as the patient was quite lethargic even after having his sodium level adjusted. Based on that, a CAT scan of the brain was done and it showed chronic stroke without any acute abnormalities. Specifically, CAT scan of the brain showed old bilateral occipital infarct and an old left posterior temporal infarct and chronic small vessel ischemic changes. As for the CAT scan of the chest, this was essentially related to asbestos exposure and the patient is known case of asbestosis. He remains on Levaquin. He has Klebsiella in his sputum which is probably a colonizer. His pro calcitonin level is low. He is receiving enteral feeding for nutritional support. Is also taken some pleasure feeds.The blood work from today shows a white cell count of 10.4 with a hemoglobin of 10.4 and a BUN of 39 with a creatinine of 0.96 and the sodium level is up to 133. The potassium levels at 4.0. Objective - Vital Signs Vital signs: Vital Signs Temp 98.4 F 01/27/22 04:55 Pulse 75 01/27/22 12:15 Resp 18 01/27/22 12:15 BP 112/65 01/27/22 12:15 Pulse Ox 94 L 01/27/22 12:15 FiO2 28 01/27/22 11:30 Intake & Output 01/26/22 01/27/22 01/27/22 18:59 06:59 18:59 Intake Total 250 1119 Output Total 750 Balance 250 369 Weight 64 kg Intake: Tube Feeding 250 1119 Output: Urine 750 Other: Voiding Method External Catheter External Catheter External Catheter # Voids 1 # Bowel Movements 1 - Exam No acute distress, nonverbal, with a midline tracheostomy tube. HEENT examination is grossly unremarkable. Neck supple. Full range of motion. No adenopathy thyromegaly or neck vein distention. Midline tracheostomy tube is noted. The patient is receiving oxygen via a trach collar at 28%. Cardiovascular examination reveals regular rhythm rate. S1-S2 normal. No S3 or S4. No discernible murmur noted. Heart sounds are distant. Lungs reveal scattered bilateral rhonchi and crackles. No wheezes. Breath sounds equal bilaterally. Saturations are 95 %. Abdomen soft, without bowel sounds. PEG tube noted. No masses. Extremities are intact. No cyanosis clubbing or edema. Skin is without rash or lesion. Neurologic examination is brief but nonfocal. - Labs CBC & Chem 7: 01/27/22 08:42 01/27/22 08:42 Labs: Abnormal Lab Results - Last 24 Hours (Table) 01/26/22 01/27/22 01/27/22 Range/Units 21:13 08:42 08:42 RBC 3.19 L (4.30-5.90) m/uL Hgb 10.4 L (13.0-17.5) gm/dL Hct 32.3 L (39.0-53.0) % MCV 101.0 H (80.0-100.0) fL Neutrophils # 7.9 H (1.3-7.7) k/uL Sodium 133 L (137-145) mmol/L Chloride 88 L (98-107) mmol/L Carbon Dioxide 39 H (22-30) mmol/L BUN 39 H (9-20) mg/dL Glucose 136 H (74-99) mg/dL POC Glucose (mg/dL) 159 H (70-110) mg/dL Calcium 8.3 L (8.4-10.2) mg/dL 01/27/22 Range/Units 12:00 RBC (4.30-5.90) m/uL Hgb (13.0-17.5) gm/dL Hct (39.0-53.0) % MCV (80.0-100.0) fL Neutrophils # (1.3-7.7) k/uL Sodium (137-145) mmol/L Chloride (98-107) mmol/L Carbon Dioxide (22-30) mmol/L BUN (9-20) mg/dL Glucose (74-99) mg/dL POC Glucose (mg/dL) 148 H (70-110) mg/dL Calcium (8.4-10.2) mg/dL Microbiology - Last 24 Hours (Table) 01/22/22 15:20 Blood Culture - Preliminary Blood No Growth after 96 hours 01/22/22 15:42 Blood Culture - Preliminary Blood No Growth after 96 hours 01/22/22 16:40 Gram Stain - Final Sputum Sputum Culture - Final Klebsiella pneumoniae Achromobacter species Assessment and Plan Plan: Shortness of breath, with evidence of CHF/pulmonary edema on chest x-ray, as well as an elevated N-terminal proBNP.patient has produced excellent amount of urine and is responding well to diuretics receiving Lasix 20 mg IV every 12 hours. Araiza catheter still in place. X-ray showing pleural calcification and thickening consistent with previous asbestos exposure. There is some increased interstitial markings/CHF which is still present. Rule out chronic ILD, rule out CHF with preserved LV function. CAT scan of the chest was done and is consistent with asbestosis. The patient also was found to have 4.1 cm ascending aortic aneurysm, incidental finding. Klebsiella and Enterobacter in his sputum. Colonization over infection. The pro-calcitonin level has been low. Lethargy with diminished level of consciousness. The patient has profound weakness, less interactive. This was initially thought to be metabolic as the patient's sodium level was low. Nevertheless, the sodium level improved the patient continues to be quite lethargic. He has had previous CVA. The CAT scan of the brain was done yesterday and showed old CVA, nothing acute, neurologically improving History of throat cancer, status post tracheostomy. Hypervolemic hyponatremia, improving and his sodium level is improving asbestosis Vocal cord paralysis. History of PEG tube placement. History of CVA. History of hyperlipidemia. History of hypertension. History of shingles. Prostate cancer, 2005, status post radiation treatment. Previous history of bypass grafting. Prior history of tobacco use. History of depression. Plan: NONCONTRAST CAT SCAN OF THE BRAIN, consistent with old CVA Obtain a contrast enhanced CAT scan of the chest, consistent with asbestosis Levaquin was started by the primary care physician team , to be continued for 7 the sputum Change Lasix to oral 20 mg by mouth twice a day Monitor electrolytes Monitor mental status, to me, he looks lethargic and he needs to gradually improve. Sodium level is up to 132 Continue enteral feeding for nutritional support We'll continue to follow.
[2022-01-27] MEDS: LEVOFLOXACIN 500MG-D5W PMX 500 MG in DEXTROSE/WATER 1 100ML.BAG IVPB SCH (12:52)
[2022-01-27 17:58] LABS: Glucose,Whole Blood 135 mg/dL (70-110)
[2022-01-27] MEDS: ATORVASTATIN 80 MG TAB PEG/G-TUBE SCH (21:21)
[2022-01-27] MEDS: TAMSULOSIN 0.4 MG CAP.ER.24H PO SCH (21:21)
[2022-01-28 00:18] LABS: Glucose,Whole Blood 145 mg/dL (70-110)
[2022-01-28 06:19] LABS: Glucose,Whole Blood 142 mg/dL (70-110)
[2022-01-28] MEDS: PANTOPRAZOLE 40 MG TABLET PO SCH (06:26)
[2022-01-28] MEDS: methIMAzole 5 MG TAB PO SCH ×3 (07:43→21:38)
[2022-01-28] MEDS: FUROSEMIDE 20 MG TAB PO SCH ×2 (07:43→15:07)
[2022-01-28] MEDS: PREGABALIN 75 MG CAP PO SCH ×2 (07:44→21:36)
[2022-01-28] MEDS: LEVOFLOXACIN 500MG-D5W PMX 500 MG in DEXTROSE/WATER 1 100ML.BAG IVPB SCH (07:44)
[2022-01-28] MEDS: TIMOLOL 0.5% OPHTH DROPS 5 ML BTL BOTH EYES SCH (07:44)
[2022-01-28] MEDS: AMIODARONE 200 MG TAB PEG/G-TUBE SCH (07:44)
[2022-01-28] MEDS: LATANOPROST 0.005% OPHTH DROPS 2.5 ML BTL BOTH EYES SCH (07:44)
[2022-01-28] MEDS: PRIMIDONE 50 MG TAB PEG/G-TUBE SCH ×2 (07:44→21:37)
[2022-01-28] MEDS: APIXABAN 5 MG TAB PEG/G-TUBE SCH ×2 (07:44→21:37)
[2022-01-28] MEDS ORDERED: METOPROLOL TARTRATE 25 MG TAB PO STA (09:57)
--- NOTE | 2022-01-28 09:58 | P.PN ---
Subjective Progress Note Date: 01/26/22 This is a pleasant 81 years old male with past medical history of CVA/TIA, GERD/Reflux, Hyperlipidemia, Hypertension, shingles few yrs ago-still w/residual leg pain, tremors, hx. prostate cancer 2004 w/radiation tx., h/o Coronary Bypass/CABG, , valve repair, history of atrial fibrillation Patient sent by his PCP Dr. Paul for low sodium of 121 patient is awake alert and follows commands but is poor historian. He denies dyspnea but is lying in bed most of the time, no leg edema however he has bilateral basilar crepitations on some dependent trunk edema. No chest pain or abdominal pain. No rash or redness of the skin. Patient has trach collar with 5 L/m of oxygen. He has PEG tube and external urine catheter Patient blood pressure on low normal side 87/55, he is on 5 L/m off trach collar. Slightly tachypneic about 19 breast permanent and afebrile. WBC 11.1, hemoglobin 10.7. Sodium 120 and 119. His BMP is unremarkable. Elevated troponin 0.07 and 0.06 and 0.07. Elevated proBNP 140 900. Urine analysis is negative. Stewart virus is not detected. EKG showing atrial flutter with a rate of 120. Chest x-ray: Extensive calcified pleural plaque. There is evidence of congestive heart failure with pulmonary edema which is mostly new compared to yesterday small pleural effusions are unchanged 01/24/2022 Patient improving slowly and gradually. No shortness of breath while at rest. He is breathing quietly. His sodium is also improving up to 128, and is kept on IV Lasix 20 mg twice daily. Augmentin Kumpe discontinue it. The procalcitonin is negative. Also patient has evidence of hyperthyroidism with T4 is 5.8 and low TSH 0.2. Patient is a started on methimazole. 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 Patient continued on a liquid 5 mg for his chronic atrial fibrillation He is getting tube feeds at 30 mL/h He has Araiza catheter with clear urine 01/25/2022 Patient is currently lying in bed comfortably. Awake alert and oriented but lethargic. On 40% FiO2 by trach collar. Sodium level improved to 130 today. Patient is tolerating PEG tube feeding. Araiza catheter in place. Patient is being continued on Lasix 20 mg IV twice a day. Anticoagulation with eliquis and also on amiodarone. Laboratory data showed sodium 1:30 potassium 3.9 chloride 86 bicarb is 38 BUN 34 and creatinine 0.97 and blood sugar is 144 01/26/2022 Patient is currently lying in the bed. Awake alert but seems to be confused and lethargic today. No complaints of chest pain or worsening shortness of breath. Patient has generalized weakness. Patient is tolerating PEG tube feeding. Sputum culture showing Klebsiella and Achromobacter Chest x-ray showed the demonstrated bilateral calcified pleural plaques suggesting prior asbestos exposure similar mild cardiomegaly mild interstitial and patchy opacities that may reflect CHF with vascular congestion and mild patchy pulmonary edema. Laboratory data showed WBCs 8.2 hemoglobin 10.8 and platelets 340 BUN 36 and creatinine 0.94 sodium 132 potassium 3.8 chloride 86 and blood sugar 144. Pulmonary is on board. Current medications reviewed. Objective - Vital Signs Vital signs: Vital Signs Temp 97.6 F 01/25/22 23:40 Pulse 67 01/26/22 16:18 Resp 16 01/26/22 12:00 BP 114/52 01/26/22 16:18 Pulse Ox 95 01/26/22 16:18 FiO2 28 01/26/22 16:18 Intake & Output 01/26/22 01/26/22 01/27/22 06:59 18:59 06:59 Intake Total 500 250 Output Total 500 Balance 0 250 Weight 73 kg Intake: Tube Feeding 500 250 Output: Urine 500 Other: Voiding Method External Catheter External Catheter # Voids 1 # Bowel Movements 1 - Exam - Exam GENERAL: The patient is alert and oriented x3, not in any acute distress. Well developed, well nourished. -HEENT: Pupils are round and equally reacting to light. EOMI. No scleral icterus. No conjunctival pallor. Normocephalic, atraumatic. No pharyngeal erythema. No thyromegaly. Trach collar in place CARDIOVASCULAR: S1 and S2 present. No murmurs, rubs, or gallops. PULMONARY: Chest is clear to auscultation, no wheezing or crackles. -ABDOMEN: Soft, nontender, nondistended, normoactive bowel sounds. No palpable organomegaly. PEG tube and a Place MUSCULOSKELETAL: No joint swelling or deformity. EXTREMITIES: No cyanosis, clubbing, or pedal edema. NEUROLOGICAL: Gross neurological examination did not reveal any focal deficits. SKIN: No rashes. no petechiae. - Labs CBC & Chem 7: 01/27/22 08:42 01/27/22 08:42 Labs: Abnormal Lab Results - Last 24 Hours (Table) 01/25/22 01/26/22 01/26/22 Range/Units 23:51 05:35 08:16 RBC (4.30-5.90) m/uL Hgb (13.0-17.5) gm/dL Hct (39.0-53.0) % MCV (80.0-100.0) fL Sodium 132 L (137-145) mmol/L Chloride 86 L (98-107) mmol/L Carbon Dioxide 40 H (22-30) mmol/L BUN 36 H (9-20) mg/dL Glucose 144 H (74-99) mg/dL POC Glucose (mg/dL) 138 H 154 H (70-110) mg/dL Calcium 8.3 L (8.4-10.2) mg/dL 01/26/22 01/26/22 Range/Units 08:16 11:33 RBC 3.32 L (4.30-5.90) m/uL Hgb 10.8 L (13.0-17.5) gm/dL Hct 33.4 L (39.0-53.0) % MCV 100.6 H (80.0-100.0) fL Sodium (137-145) mmol/L Chloride (98-107) mmol/L Carbon Dioxide (22-30) mmol/L BUN (9-20) mg/dL Glucose (74-99) mg/dL POC Glucose (mg/dL) 155 H (70-110) mg/dL Calcium (8.4-10.2) mg/dL Microbiology - Last 24 Hours (Table) 01/22/22 15:20 Blood Culture - Preliminary Blood No Growth after 96 hours 01/22/22 15:42 Blood Culture - Preliminary Blood No Growth after 96 hours 01/22/22 16:40 Gram Stain - Final Sputum Sputum Culture - Final Klebsiella pneumoniae Achromobacter species Assessment and Plan Assessment: Acute on Chronic CHF exacerbation. Preserved EF. Ejection fraction 50-55% Hypervolemic hyponatremia Hyperthyroidism Chronic atrial fibrillation on Eliquis at home History of coronary artery disease status post CABG Hypertension Hyperlipidemia History of GERD History of shingles and left leg pain Malignant Laryngeal mass s/p prior tracheostomy and PEG tube Plan: This is a pleasant 81 years old male presents with hyponatremia and shortness of breath Patient was continued on IV Lasix. Changed to Lasix 20 mg by mouth twice a day Continue with methimazole. Patient is also on propranolol at home. Cardiology, nephrology and pulmonary is on board. Discontinue propranolol and continue with him amiodarone per cardiology recommendations. Labs and medication were reviewed. Monitor lytes and vitals. DVT prophylaxis: eliquis GI Prophylaxis: Pepcid Prognosis is guarded Time with Patient: Greater than 30
[2022-01-28] MEDS ORDERED: PROPRANOLOL 20 MG TAB PEG/G-TUBE SCH (10:00)
--- NOTE | 2022-01-28 10:02 | P.PN ---
Subjective Progress Note Date: 01/27/22 This is a pleasant 81 years old male with past medical history of CVA/TIA, GERD/Reflux, Hyperlipidemia, Hypertension, shingles few yrs ago-still w/residual leg pain, tremors, hx. prostate cancer 2004 w/radiation tx., h/o Coronary Bypass/CABG, , valve repair, history of atrial fibrillation Patient sent by his PCP Dr. Paul for low sodium of 121 patient is awake alert and follows commands but is poor historian. He denies dyspnea but is lying in bed most of the time, no leg edema however he has bilateral basilar crepitations on some dependent trunk edema. No chest pain or abdominal pain. No rash or redness of the skin. Patient has trach collar with 5 L/m of oxygen. He has PEG tube and external urine catheter Patient blood pressure on low normal side 87/55, he is on 5 L/m off trach collar. Slightly tachypneic about 19 breast permanent and afebrile. WBC 11.1, hemoglobin 10.7. Sodium 120 and 119. His BMP is unremarkable. Elevated troponin 0.07 and 0.06 and 0.07. Elevated proBNP 140 900. Urine analysis is negative. Stewart virus is not detected. EKG showing atrial flutter with a rate of 120. Chest x-ray: Extensive calcified pleural plaque. There is evidence of congestive heart failure with pulmonary edema which is mostly new compared to yesterday small pleural effusions are unchanged 01/24/2022 Patient improving slowly and gradually. No shortness of breath while at rest. He is breathing quietly. His sodium is also improving up to 128, and is kept on IV Lasix 20 mg twice daily. Augmentin Kumpe discontinue it. The procalcitonin is negative. Also patient has evidence of hyperthyroidism with T4 is 5.8 and low TSH 0.2. Patient is a started on methimazole. With recommendation for outpatient follow- up with dependency case manager. Patient continued on a liquid 5 mg for his chronic atrial fibrillation He is getting tube feeds at 30 mL/h He has Araiza catheter with clear urine 01/25/2022 Patient is currently lying in bed comfortably. Awake alert and oriented but lethargic. On 40% FiO2 by trach collar. Sodium level improved to 130 today. Patient is tolerating PEG tube feeding. Araiza catheter in place. Patient is being continued on Lasix 20 mg IV twice a day. Anticoagulation with eliquis and also on amiodarone. Laboratory data showed sodium 1:30 potassium 3.9 chloride 86 bicarb is 38 BUN 34 and creatinine 0.97 and blood sugar is 144 01/26/2022 Patient is currently lying in the bed. Awake alert but seems to be confused and lethargic today. No complaints of chest pain or worsening shortness of breath. Patient has generalized weakness. Patient is tolerating PEG tube feeding. Sputum culture showing Klebsiella and Achromobacter Chest x-ray showed the demonstrated bilateral calcified pleural plaques suggesting prior asbestos exposure similar mild cardiomegaly mild interstitial and patchy opacities that may reflect CHF with vascular congestion and mild patchy pulmonary edema. Laboratory data showed WBCs 8.2 hemoglobin 10.8 and platelets 340 BUN 36 and creatinine 0.94 sodium 132 potassium 3.8 chloride 86 and blood sugar 144. Pulmonary is on board. 01/27/2022 Patient is currently lying in the bed. Seems to be more awake and alert and oriented. No complaints of chest pain or worsening shortness of breath. CT chest showed extensive calcified pleural plaque. Cardiomegaly. Abdomen is. 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 Calcified plate and pleural fluid increases compared to abdominal computed tomography scan on 08/27/2011. Small pleural effusion at the lung bases and mild basilar pulmonary infiltrates. Patient is being continued on Lasix 20 mg twice a day. Afebrile. No nausea vomiting or diarrhea. Patient is on oxygen by trach collar. Laboratory data showed WBC 10.4 hemoglobin 10.4 and platelets 295 Sodium 133 potassium 4.0 chloride 88 bicarb is 39 BUN 13 and creatinine 0.96 and blood sugar is 136. Pro-Level Is 0.05 Current medications reviewed. Objective - Vital Signs Vital signs: Vital Signs Temp 97.5 F L 01/27/22 19:40 Pulse 106 H 01/27/22 19:40 Resp 20 01/27/22 21:20 BP 98/67 01/27/22 19:40 Pulse Ox 96 01/27/22 20:10 FiO2 28 01/27/22 20:10 Intake & Output 01/27/22 01/27/22 01/28/22 06:59 18:59 06:59 Intake Total 1119 643 218 Output Total 750 Balance 369 643 218 Weight 64 kg Intake: Tube Feeding 1119 643 218 Output: Urine 750 Other: Voiding Method External Catheter External Catheter External Catheter # Bowel Movements 1 - Exam - Exam GENERAL: The patient is alert and oriented x3, not in any acute distress. Well developed, well nourished. -HEENT: Pupils are round and equally reacting to light. EOMI. No scleral icterus. No conjunctival pallor. Normocephalic, atraumatic. No pharyngeal erythema. No thyromegaly. Trach collar in place CARDIOVASCULAR: S1 and S2 present. No murmurs, rubs, or gallops. PULMONARY: Chest is clear to auscultation, no wheezing or crackles. -ABDOMEN: Soft, nontender, nondistended, normoactive bowel sounds. No palpable o rganomegaly. PEG tube and a Place MUSCULOSKELETAL: No joint swelling or deformity. EXTREMITIES: No cyanosis, clubbing, or pedal edema. NEUROLOGICAL: Gross neurological examination did not reveal any focal deficits. SKIN: No rashes. no petechiae. - Labs CBC & Chem 7: 01/27/22 08:42 01/27/22 08:42 Labs: Abnormal Lab Results - Last 24 Hours (Table) 01/27/22 01/27/22 01/27/22 Range/Units 08:42 08:42 12:00 RBC 3.19 L (4.30-5.90) m/uL Hgb 10.4 L (13.0-17.5) gm/dL Hct 32.3 L (39.0-53.0) % MCV 101.0 H (80.0-100.0) fL Neutrophils # 7.9 H (1.3-7.7) k/uL Sodium 133 L (137-145) mmol/L Chloride 88 L (98-107) mmol/L Carbon Dioxide 39 H (22-30) mmol/L BUN 39 H (9-20) mg/dL Glucose 136 H (74-99) mg/dL POC Glucose (mg/dL) 148 H (70-110) mg/dL Calcium 8.3 L (8.4-10.2) mg/dL 01/27/22 Range/Units 17:57 RBC (4.30-5.90) m/uL Hgb (13.0-17.5) gm/dL Hct (39.0-53.0) % MCV (80.0-100.0) fL Neutrophils # (1.3-7.7) k/uL Sodium (137-145) mmol/L Chloride (98-107) mmol/L Carbon Dioxide (22-30) mmol/L BUN (9-20) mg/dL Glucose (74-99) mg/dL POC Glucose (mg/dL) 135 H (70-110) mg/dL Calcium (8.4-10.2) mg/dL Microbiology - Last 24 Hours (Table) 01/22/22 15:20 Blood Culture - Preliminary Blood No Growth after 120 hours 01/22/22 15:42 Blood Culture - Preliminary Blood No Growth after 120 hours Assessment and Plan Assessment: Acute on Chronic CHF exacerbation. Preserved EF. Ejection fraction 50-55% Hypervolemic hyponatremia. Improving. Klebsiella species in the sputum culture. Possible contaminant. level is also low. 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 Pro-calcitonin level is low and Klebsiella possibly contaminant in the sputum sample. Patient was continued on IV Lasix. Changed to Lasix 20 mg by mouth twice a day Continue with methimazole. Patient is also on propranolol at home. Cardiology, nephrology and pulmonary is on board. Discontinue propranolol and continue with him amiodarone per cardiology recommendations. Labs and medication were reviewed. Monitor lytes and vitals. DVT prophylaxis: eliquis GI Prophylaxis: Pepcid Prognosis is guarded Anticipate discharged to rehab versus home with home health care. Time with Patient: Greater than 30
--- NOTE | 2022-01-28 11:40 | XR ---
EXAMINATION TYPE: XR chest 1V portable DATE OF EXAM: 01/28/2022 11:24 AM COMPARISON: Chest radiographs from 01/26/2022, CT chest 01/26/2022. TECHNIQUE: XR chest 1V portable F rontal view of the chest. CLINICAL INDICATION:Male, 81 years old with history of Elevated HR; FINDINGS: Lungs/Pleura: Small bilateral pleural effusions with bibasilar patchy airspace opacities. Persistent prominence. Redemonstration of extensive bilateral calcified pleural plaques. Heart/mediastinum: Cardiomediastinal silhouette is enlarged and stable. Atherosclerotic calcificatio ns are seen in the aorta. Post surgical changes of the heart. Musculoskeletal: No acute osseous pathology. Midline sternotomy wires are noted and stable. Reverse r ight shoulder arthroplasty. Left AC joint arthropathy. Other findings: Loop recorder device overlies the left heart border. Lines/Tubes: Tracheostomy cannula tip projecting over the trachea. IMPRESSION: Redemonstration of bilateral calcified pleural plaques suggesting prior asbestos exposure. Similar mi ld cardiomegaly and bilateral small pleural effusions and patchy bibasilar airspace opacities. This m ay reflect CHF with vascular congestion with superimposed infectious process is not excluded.
[2022-01-28 12:23] LABS: Glucose,Whole Blood 153 mg/dL (70-110)
--- NOTE | 2022-01-28 12:27 | P.PN ---
Subjective Patient is seen for follow-up for hyponatremia. Sodium was up to 133 yesterday. Labs are pending from today. Currently maintained on Lasix 20 mg by mouth twice a day. No significant complaints today. Objective - Vital Signs Vital signs: Vital Signs Temp 97.4 F L 01/28/22 07:39 Pulse 89 01/28/22 11:00 Resp 22 01/28/22 11:00 BP 145/68 01/28/22 11:00 Pulse Ox 94 L 01/28/22 11:00 FiO2 28 01/28/22 11:00 Intake & Output 01/27/22 01/28/22 01/28/22 18:59 06:59 18:59 Intake Total 643 696 0 Output Total 600 Balance 643 96 0 Intake: Oral 0 Tube Feeding 643 696 Output: Urine 600 Other: Voiding Method External Catheter External Catheter External Catheter # Bowel Movements 1 1 - Exam Awake, comfortable, not in any acute distress Examination of the heart S1 and S2 Examination of the lungs bilateral breath sounds are heard Abdomen is soft nontender Examination lower extremities shows no significant edema - Labs CBC & Chem 7: 01/27/22 08:42 01/27/22 08:42 Labs: Abnormal Lab Results - Last 24 Hours (Table) 01/27/22 01/28/22 01/28/22 Range/Units 17:57 00:17 06:15 POC Glucose (mg/dL) 135 H 145 H 142 H (70-110) mg/dL 01/28/22 Range/Units 12:21 POC Glucose (mg/dL) 153 H (70-110) mg/dL Microbiology - Last 24 Hours (Table) 01/22/22 15:20 Blood Culture - Preliminary Blood No Growth after 120 hours 01/22/22 15:42 Blood Culture - Preliminary Blood No Growth after 120 hours Assessment and Plan Assessment: 1. Hyponatremia. Better. Was hypervolemic, now euvolemic. Underlying SIADH from malignancy. Urine sodium 68, urine osmolality 217. Cortisol not low. TSH low. 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 Vocal cord paralysis. 4. Status post PEG tube placement. 5. Acute on chronic diastolic CHF with moderate aortic stenosis, moderate aortic regurgitation and moderate pulmonary hypertension. Plan: Check sodium today Continue with oral Lasix Follow-up as outpatient in 1-2 weeks post discharge with repeat labs to be done in 2-3 days post discharge
--- NOTE | 2022-01-28 12:48 | P.PN ---
Subjective Progress Note Date: 01/28/22 On today's evaluation of 01/25/2022, I came to evaluate and metastases Mr. Pires today. The patient has a tracheostomy tube in place. The patient is on a 40% trach collar. His resting comfortably in bed. However it is a bit lethargic. He is receiving enteral feeding for nutritional support 50cc/hr and he has a PEG tube in place. Does not seem to be in significant respiratory distress. I reviewed the records. I also talked to his . He has both cancer and the patient has not undergone any treatment yet. He has also extensive number of comorbid conditions including coronary artery disease, previous bypass surgery, prostate cancer, hypertension, hyperlipidemia, congestion heart failure, and more recently filled cancer. He has a paralyzed vocal cords. At the same time, the patient presented to us with a very low sodium level 119. He was replenished and his sodium level is up to 130. I reviewed the chest x-ray. 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 He has a Araiza catheter in place and is producing adequate amount of urine output. He remains on IV Lasix. Note that his proBNP level at the time of admission was considerably elevated at 14,900. Troponins were minimally elevated at 0.07, 0.06 and 0.07 respectively. Today's evaluation of 01/26/2022, the patient is very slow in answering quest ions. He is awake. He communicates. He follows simple commands. Nevertheless, is extensively weak in all 4 extremities and he has a very blunt affect. Looks around and he does not initiate any communication. His oral intake has been also minimal. The tried to feed him and his intake was probably around 5-10% of the entire meal. He did have Klebsiella and Achromobacter species in his sputum. The patient's repeat chest x-ray showed cardiomegaly and increased pulmonary vascular markings bilaterally and the findings of essentially the same. He also has calcified pleural plaques sugg estive of previous asbestos exposure. There may be an underlying CHF in addition. In the right, the patient was being the reason IV Lasix 20 mg every 12 hours. He is producing excellent urine output and he has produced approximately 4-0.7 L over the past 48 hours. His blood work is showing a white cell count of 8.2 with a hemoglobin of 10.8, his serum sodium is improved and felt to 132. His pro calcitonin level was at 0.04. 01/27/2022, I'm seeing the patient for a follow-up. He seems to much more awake compared to yesterday. He is easily arousable. The has noted that the patient's level of alertness is also improved. I was concerned about that as the patient was quite lethargic even after having his sodium level adjusted. Based on that, a CAT scan of the brain was done and it showed chronic stroke without any acute abnormalities. Specifically, CAT scan of the brain showed old bilateral occipital infarct and an old left posterior temporal infarct and chronic small vessel ischemic changes. As for the CAT scan of the chest, this was essentially related to asbestos exposure and the patient is known case of asbestosis. He remains on Levaquin. He has Klebsiella in his sputum which is probably a colonizer. His pro calcitonin level is low. He is receiving enteral feeding for nutritional support. Is also taken some pleasure feeds.The blood work from today shows a white cell count of 10.4 with a hemoglobin of 10.4 and a BUN of 39 with a creatinine of 0.96 and the sodium level is up to 133. The potassium levels at 4.0. 01/28/2022, the patient is awake and arousable. He is communicating. He is however week. He remains on 28% trach collar and a pulse ox is 94%. Is afebrile for now. No significant respiratory secretions. Tolerating his enteral feeding for nutritional support. He also takes some pleasure feeds. No nausea. No emesis. His electronics improved and his sodium level was up to 133 yesterday and this has resulted also improvement in his overall level of alertness. 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 His chest x-ray is consistent with asbestosis. No other new changes noted. Continues to receive enteral feeding for nutritional support via PEG tube. Objective - Vital Signs Vital signs: Vital Signs Temp 97.4 F L 01/28/22 07:39 Pulse 89 01/28/22 11:00 Resp 22 01/28/22 11:00 BP 145/68 01/28/22 11:00 Pulse Ox 94 L 01/28/22 11:00 FiO2 28 01/28/22 11:00 Intake & Output 01/27/22 01/28/22 01/28/22 18:59 06:59 18:59 Intake Total 643 696 0 Output Total 600 Balance 643 96 0 Intake: Oral 0 Tube Feeding 643 696 Output: Urine 600 Other: Voiding Method External Catheter External Catheter External Catheter # Bowel Movements 1 1 - Exam No acute distress, nonverbal, with a midline tracheostomy tube. HEENT examination is grossly unremarkable. Neck supple. Full range of motion. No adenopathy thyromegaly or neck vein distention. Midline tracheostomy tube is noted. The patient is receiving oxygen via a trach collar at 28%. Cardiovascular examination reveals regular rhythm rate. S1-S2 normal. No S3 or S4. No discernible murmur noted. Heart sounds are distant. Lungs reveal scattered bilateral rhonchi and crackles. No wheezes. Breath sounds equal bilaterally. Saturations are 95 %. Abdomen soft, without bowel sounds. PEG tube noted. No masses. Extremities are intact. No cyanosis clubbing or edema. Skin is without rash or lesion. Neurologic examination is brief but nonfocal. - Labs CBC & Chem 7: 01/27/22 08:42 01/27/22 08:42 Labs: Abnormal Lab Results - Last 24 Hours (Table) 01/27/22 01/28/22 01/28/22 Range/Units 17:57 00:17 06:15 POC Glucose (mg/dL) 135 H 145 H 142 H (70-110) mg/dL 01/28/22 Range/Units 12:21 POC Glucose (mg/dL) 153 H (70-110) mg/dL Microbiology - Last 24 Hours (Table) 01/22/22 15:20 Blood Culture - Preliminary Blood No Growth after 120 hours 01/22/22 15:42 Blood Culture - Preliminary Blood No Growth after 120 hours Assessment and Plan Plan: Shortness of breath, with evidence of CHF/pulmonary edema on chest x-ray, as well as an elevated N-terminal proBNP.patient has produced excellent amount of urine and is responding well to diuretics receiving Lasix 20 mg IV every 12 hours. Araiza catheter still in place. X-ray showing pleural calcification and thickening consistent with previous asbestos exposure. There is some increased interstitial markings/CHF which is still present. Rule out chronic ILD, rule out CHF with preserved LV function. CAT scan of the chest was done and is consistent with asbestosis. The patient also was found to have 4.1 cm ascending aortic aneurysm, incidental finding. Klebsiella and Enterobacter in his sputum. Colonization over infection. The pro-calcitonin level has been low. Lethargy with diminished level of consciousness, recovered . The patient has profound weakness, less interactive. This was initially thought to be metabolic as the patient's sodium level was low. Nevertheless, the sodium level improved the patient is alert, but weak. He has had previous CVA. The CAT scan of the brain was done yesterday and showed old CVA, nothing acute History of throat cancer, status post tracheostomy. Hypervolemic hyponatremia, improving and his sodium level is improving asbestosis Vocal cord paralysis. History of PEG tube placement. History of CVA. History of hyperlipidemia. History of hypertension. History of shingles. Prostate cancer, 2004, status post radiation treatment. Previous history of bypass grafting. Prior history of tobacco use. History of depression. Plan: Clinically stable No changes in his chest x-ray findings No issues with oxygenation NONCONTRAST CAT SCAN OF THE BRAIN, consistent with old CVA Obtain a contrast enhanced CAT scan of the chest, consistent with asbestosis Levaquin was started by the primary care physician team , to be continued for 7 days based on the sputum that showed Klebsiella Change Lasix to oral 20 mg by mouth twice a day Monitor electrolytes Monitor mental status, to me, he looks lethargic and he needs to gradually improve. Sodium level is up to 132 Continue enteral feeding for nutritional support He is very weak and he would benefit from PT and inpatient rehab We'll continue to follow.
[2022-01-28 18:04] LABS: Glucose,Whole Blood 147 mg/dL (70-110)
[2022-01-28] MEDS: TAMSULOSIN 0.4 MG CAP.ER.24H PO SCH (21:36)
[2022-01-28] MEDS: METOPROLOL TARTRATE 25 MG TAB PO SCH (21:37)
[2022-01-28] MEDS: ATORVASTATIN 80 MG TAB PEG/G-TUBE SCH (21:37)
[2022-01-29 05:01] LABS: Glucose,Whole Blood 143 mg/dL (70-110)
[2022-01-29 05:59] LABS: Glucose,Whole Blood 139 mg/dL (70-110)
[2022-01-29] MEDS: PANTOPRAZOLE 40 MG TABLET PO SCH (06:57)
[2022-01-29 09:24] LABS: Basophils % (A) 1 %; Eosinophils # (A) 0.3 k/uL (0-0.7); Eosinophils % (A) 4 %; HCT 31.4 % (39.0-53.0); HGB 10.4 gm/dL (13.0-17.5); Hypochromasia Slight; Lymphocytes # (A) 1.1 k/uL (1.0-4.8); Lymphocytes % (A) 13 %; MCH 33.4 pg (25.0-35.0); MCHC 33.2 g/dL (31.0-37.0); MCV 100.5 fL (80.0-100.0); Macrocytosis Slight; Mean Platelet Volume 8.3; Monocytes # (A) 0.6 k/uL (0-1.0); Monocytes % (A) 8 %; Neutrophils # (A) 5.7 k/uL (1.3-7.7); Neutrophils % (A) 71 %; Platelet Count 278 k/uL (150-450); RBC 3.12 m/uL (4.30-5.90); RDW 14.3 % (11.5-15.5)
[2022-01-29 09:37] LABS: Calcium 8.4 mg/dL (8.4-10.2)
--- NOTE | 2022-01-29 10:30 | P.PN ---
Subjective Patient is seen in follow-up for hyponatremia. Sodium level better. Receiving tube feeds. On oral Lasix. Blood pressure stable. No changes overnight. Vital signs are stable. General: Resting in bed. HEENT: Head exam is unremarkable. Trach collar noted. LUNGS: Breath sounds decreased. HEART: Rate and Rhythm are regular. ABDOMEN: Soft, no distention. EXTREMITITES: No edema. Objective - Vital Signs Vital signs: Vital Signs Temp 97.9 F 01/29/22 03:10 Pulse 72 01/29/22 03:10 Resp 20 01/29/22 03:10 BP 103/67 01/29/22 03:10 Pulse Ox 96 01/29/22 08:12 FiO2 28 01/29/22 08:12 Intake & Output 01/28/22 01/29/22 01/29/22 18:59 06:59 18:59 Intake Total 0 1132 0 Output Total 400 Balance -400 1132 0 Intake: Oral 0 0 Tube Feeding 1132 Output: Urine 400 Other: Voiding Method External Catheter External Catheter # Bowel Movements 1 - Labs CBC & Chem 7: 01/29/22 08:36 01/29/22 08:36 Labs: Abnormal Lab Results - Last 24 Hours (Table) 01/28/22 01/28/22 01/28/22 Range/Units 12:21 12:27 18:02 RBC (4.30-5.90) m/uL Hgb (13.0-17.5) gm/dL Hct (39.0-53.0) % MCV (80.0-100.0) fL Sodium 131 L (137-145) mmol/L Chloride (98-107) mmol/L Carbon Dioxide (22-30) mmol/L BUN (9-20) mg/dL Glucose (74-99) mg/dL POC Glucose (mg/dL) 153 H 147 H (70-110) mg/dL 01/29/22 01/29/22 01/29/22 Range/Units 02:09 05:58 08:36 RBC 3.12 L (4.30-5.90) m/uL Hgb 10.4 L (13.0-17.5) gm/dL Hct 31.4 L (39.0-53.0) % MCV 100.5 H (80.0-100.0) fL Sodium (137-145) mmol/L Chloride (98-107) mmol/L Carbon Dioxide (22-30) mmol/L BUN (9-20) mg/dL Glucose (74-99) mg/dL POC Glucose (mg/dL) 143 H 139 H (70-110) mg/dL 01/29/22 Range/Units 08:36 RBC (4.30-5.90) m/uL Hgb (13.0-17.5) gm/dL Hct (39.0-53.0) % MCV (80.0-100.0) fL Sodium 134 L (137-145) mmol/L Chloride 90 L (98-107) mmol/L Carbon Dioxide 37 H (22-30) mmol/L BUN 44 H (9-20) mg/dL Glucose 133 H (74-99) mg/dL POC Glucose (mg/dL) (70-110) mg/dL Microbiology - Last 24 Hours (Table) 01/22/22 15:20 Blood Culture - Final Blood No Growth after 144 hours 01/22/22 15:42 Blood Culture - Final Blood No Growth after 144 hours Assessment and Plan Plan: Assessment: 1. Hyponatremia. Better. Was hypervolemic, now euvolemic. Underlying SIADH from malignancy. Urine sodium 68, urine osmolality 217. Cortisol not low. TSH low. 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 Vocal cord paralysis. 4. Status post PEG tube placement. 5. Acute on chronic diastolic CHF with moderate aortic stenosis, moderate aortic regurgitation and moderate pulmonary hypertension. Plan: Maintain tube feeds. Maintain oral Lasix. Repeat BMP and magnesium level 2-3 days postdischarge. Follow up outpatient in 1 week.
[2022-01-29] MEDS: FUROSEMIDE 20 MG TAB PO SCH ×2 (10:35→17:50)
[2022-01-29] MEDS: PRIMIDONE 50 MG TAB PEG/G-TUBE SCH ×2 (10:35→21:26)
[2022-01-29] MEDS: methIMAzole 5 MG TAB PO SCH ×3 (10:35→21:26)
[2022-01-29] MEDS: AMIODARONE 200 MG TAB PEG/G-TUBE SCH (10:35)
[2022-01-29] MEDS: METOPROLOL TARTRATE 25 MG TAB PO SCH ×2 (10:35→21:26)
[2022-01-29] MEDS: APIXABAN 5 MG TAB PEG/G-TUBE SCH ×2 (10:35→21:26)
[2022-01-29] MEDS: PREGABALIN 75 MG CAP PO SCH ×2 (10:35→21:26)
[2022-01-29] MEDS: TIMOLOL 0.5% OPHTH DROPS 5 ML BTL BOTH EYES SCH (10:36)
[2022-01-29] MEDS: LATANOPROST 0.005% OPHTH DROPS 2.5 ML BTL BOTH EYES SCH (10:37)
--- NOTE | 2022-01-29 10:58 | P.CONS ---
History of Present Illness - Chief Complaint Medical debility - History of Present Illness I had the opportunity to see patient for inpatient rehab consultation with regard to medical debility. Patient admitted to Dr. brantley January 22 history of throat cancer and trach complications. Noted to have hyponatremia, nectar for ablation, CHF and high troponin. Seen by Dr. Craft for the cardiac issues. Seen by Dr. Vázquez for pulmonary including the CHF. Seen by nephrology for SIADH. Chest x-rays followed for effusions and opacities as well as bilateral plaques consistent with asbestosis. Also cardiomegaly and effusions with infiltrates. C-spine CT demonstrates plaques. Head CT with old septal infarction, atrophy and chronic change. Has started therapy. PT reports two-person minimal assistance functional mobility including bed, transfer, gait 2 feet with roller walker. Note poor balance and endurance. OT reports moderate assistance for grooming and upper dressing and bathing and maximal assistance for lower dressing. Total assistance for toileting and minimal assistance for toilet tr ansfer. Previous functional history as elicited from patient with yes/no response: 81-year-old right-handed white male who is lives in an apartment with . Review of Systems Review of systems: ENT: Trach. Eyes: Denies discharge or photophobia. Cardiac: Denies chest pain or palpitation. Pulmonary: shortness of breath. Gastrointestinal: Denies nausea, emesis, constipation, diarrhea. Genitourinary: Denies discharge or frequency. Musculoskeletal: Denies muscle or bone aches. Neurologic: Generalized weakness. Endocrine: Denies shakes or sweats. Oncology: Denies cancers. Dermatologic: Denies rash, itching, pruritus. ALLERGY/immunology: Denies sneezes, rashes. Past Medical History Past Medical History: Cancer, CVA/TIA, GERD/Reflux, Hyperlipidemia, Hypertension Additional Past Medical History / Comment(s): shingles few yrs ago-still w/residual leg pain, tremors, hx. prostate cancer 2004 w/radiation tx., short of breath History of Any Multi-Drug Resistant Organisms: ESBL Year Discovered:: 01/22/22 ESBL MDRO Source:: Sputum Past Surgical History: Cholecystectomy, Coronary Bypass/CABG, Hernia Repair, Joint Replacement, Orthopedic Surgery Additional Past Surgical History / Comment(s): valve repair, right knee replaced, right shoulder surg. x 2 Past Anesthesia/Blood Transfusion Reactions: Previous Problems w/ Anesthesia Additional Past Anesthesia/Blood Transfusion Reaction / Comm: confusion after waking from anesthesia, day after cholycystectomy experienced low blood pressure adm to ICU received 2 units of plasma and whole blood Past Psychological History: Depression Smoking Status: Former smoker Past Alcohol Use History: Occasional Past Drug Use History: None Reported - Past Family History Mother Family Medical History: No Reported History Medications and Allergies Home Medications Medication Instructions Recorded Confirmed Type Furosemide [Lasix] 20 mg PEG/G-TUBE DAILY 08/01/15 01/22/22 History Potassium Chloride [Klor-Con 20] 20 meq PEG/G-TUBE DAILY 08/01/15 01/22/22 History Pregabalin [Lyrica] 75 mg PO BID 08/01/15 01/22/22 History Primidone [Mysoline] 100 mg PEG/G-TUBE HS 08/01/15 01/22/22 History Latanoprost Ophth [Xalatan 0.005%] 1 drop BOTH EYES DAILY 03/26/19 01/22/22 Hi story Omeprazole [PriLOSEC] 40 mg PO DAILY 03/26/19 01/22/22 History Atorvastatin [Lipitor] 80 mg PEG/G-TUBE HS 12/08/19 01/22/22 History Timolol 0.5% Ophth Soln [Timoptic 1 drop BOTH EYES DAILY 12/08/19 01/22/22 History 0.5% Ophth Soln] ALPRAZolam [Xanax] 0.25 mg PEG/G-TUBE BID PRN 01/22/22 01/22/22 History ALPRAZolam [Xanax] 0.25 mg PEG/G-TUBE HS 01/22/22 01/22/22 History Amiodarone [Cordarone] 200 mg PEG/G-TUBE DAILY 01/22/22 01/22/22 History Amoxic-Pot Clav 875-125Mg 1 tab PEG/G-TUBE BID 01/22/22 01/22/22 History [Augmentin 875-125] Apixaban [Eliquis] 5 mg PEG/G-TUBE BID 01/22/22 01/22/22 History Primidone [Mysoline] 50 mg PEG/G-TUBE DAILY 01/22/22 01/22/22 History Propranolol [Inderal] 20 mg PEG/G-TUBE BID 01/22/22 01/22/22 History Tamsulosin HCl [Flomax] 0.4 mg PO HS 01/22/22 01/22/22 History predniSONE See Taper PEG/G-TUBE DIRECTED 01/22/22 01/22/22 History Allergies Allergy/AdvReac Type Severity Reaction Status Date / Time No Known Allergies Allergy Verified 01/22/22 15:13 Physical Exam Vitals: Vital Signs Temp Pulse Pulse Resp BP Pulse Ox FiO2 01/29/22 08:12 96 28 01/29/22 03:10 97.9 F 72 20 103/67 94 L 28 01/28/22 23:10 97.3 F L 54 L 18 92/58 95 28 01/28/22 19:20 98.8 F 82 22 110/73 97 28 01/28/22 17:27 28 01/28/22 15:00 98.2 F 86 20 98/54 93 L 28 01/28/22 13:27 89 01/28/22 11:00 89 22 145/68 94 L 28 01/28/22 10:54 28 Intake and Output 01/28/22 01/29/22 01/29/22 22:59 06:59 14:59 Intake Total 827 305 0 Balance 827 305 0 Intake: Oral 0 Tube Feeding 827 305 Other: Voiding Method External Catheter External Catheter # Bowel Movements 1 Skin: Atrophic, intact. General: Medium build and comfortable appearance. Head: Normocephalic, atraumatic. Eyes: Symmetric. Pupils equal round. Ears: Symmetric. Hearing within normal limits. Mouth: Clear. Neck: Supple. Carotid without bruit. Cardiac: Regular rate and rhythm. Lungs: Clear anteriorly and posteriorly. Abdomen: Soft active nontender. Extremities: Normal tone. Neurological: Mental status: Alert, cooperative, fatigued. Cranial nerves: Symmetric facial tone and trapezius. Motor: Active movement all 4 limbs but definitely less than antigravity. Sensation: Intact throughout. DTRs: Symmetric and equal throughout. Mobility: Requires physical assist for bed mobility. Results CBC & Chem 7: 01/29/22 08:36 01/29/22 08:36 Labs: Abnormal Lab Results - Last 24 Hours (Table) 01/28/22 01/28/22 01/28/22 Range/Units 12:21 12:27 18:02 RBC (4.30-5.90) m/uL Hgb (13.0-17.5) gm/dL Hct (39.0-53.0) % MCV (80.0-100.0) fL Sodium 131 L (137-145) mmol/L Chloride (98-107) mmol/L Carbon Dioxide (22-30) mmol/L BUN (9-20) mg/dL Glucose (74-99) mg/dL POC Glucose (mg/dL) 153 H 147 H (70-110) mg/dL 01/29/22 01/29/22 01/29/22 Range/Units 02:09 05:58 08:36 RBC 3.12 L (4.30-5.90) m/uL Hgb 10.4 L (13.0-17.5) gm/dL Hct 31.4 L (39.0-53.0) % MCV 100.5 H (80.0-100.0) fL Sodium (137-145) mmol/L Chloride (98-107) mmol/L Carbon Dioxide (22-30) mmol/L BUN (9-20) mg/dL Glucose (74-99) mg/dL POC Glucose (mg/dL) 143 H 139 H (70-110) mg/dL 01/29/22 Range/Units 08:36 RBC (4.30-5.90) m/uL Hgb (13.0-17.5) gm/dL Hct (39.0-53.0) % MCV (80.0-100.0) fL Sodium 134 L (137-145) mmol/L Chloride 90 L (98-107) mmol/L Carbon Dioxide 37 H (22-30) mmol/L BUN 44 H (9-20) mg/dL Glucose 133 H (74-99) mg/dL POC Glucose (mg/dL) (70-110) mg/dL Microbiology - Last 24 Hours (Table) 01/22/22 15:20 Blood Culture - Final Blood No Growth after 144 hours 01/22/22 15:42 Blood Culture - Final Blood No Growth after 144 hours Assessment and Plan (1) CHF exacerbation Current Visit: Yes Status: Acute Code(s): I50.9 - HEART FAILURE, UNSPECIFIED SNOMED Code(s): 489616271 (2) Elevated troponin Current Visit: Yes Status: Acute Code(s): R77.8 - OTHER SPECIFIED ABNORMALITIES OF PLASMA PROTEINS SNOMED Code(s): 421968996 (3) Hyponatremia Current Visit: Yes Status: Acute Code(s): E87.1 - HYPO-OSMOLALITY AND HYPONATREMIA SNOMED Code(s): 61446927 (4) Tracheostomy dependent Current Visit: Yes Status: Acute Code(s): Z93.0 - TRACHEOSTOMY STATUS SNOMED Code(s): 233680429 Plan: Comments and plan: At this time patient demonstrates limited endurance and in fact fatigue with very limited yes/no questions. Also poor but voluntary movement all limbs. At this time do not believe patient able tolerate full inpatient rehab program. Should begin to consider slower paced program with 24/7 care multiple persons.
[2022-01-29 11:44] LABS: Glucose,Whole Blood 163 mg/dL (70-110)
--- NOTE | 2022-01-29 13:23 | P.PN ---
Subjective Progress Note Date: 01/29/22 On today's evaluation of 01/25/2022, I came to evaluate and metastases Mr. Pires today. The patient has a tracheostomy tube in place. The patient is on a 40% trach collar. His resting comfortably in bed. However it is a bit lethargic. He is receiving enteral feeding for nutritional support 50cc/hr and he has a PEG tube in place. Does not seem to be in significant respiratory distress. I reviewed the records. I also talked to his . He has both cancer and the patient has not undergone any treatment yet. He has also extensive number of comorbid conditions including coronary artery disease, previous bypass surgery, prostate cancer, hypertension, hyperlipidemia, congestion heart failure, and more recently filled cancer. He has a paralyzed vocal cords. At the same time, the patient presented to us with a very low sodium level 119. He was replenished and his sodium level is up to 130. I reviewed the chest x-ray. 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 He has a Araiza catheter in place and is producing adequate amount of urine output. He remains on IV Lasix. Note that his proBNP level at the time of admission was considerably elevated at 14,900. Troponins were minimally elevated at 0.07, 0.06 and 0.07 respectively. Today's evaluation of 01/26/2022, the patient is very slow in answering quest ions. He is awake. He communicates. He follows simple commands. Nevertheless, is extensively weak in all 4 extremities and he has a very blunt affect. Looks around and he does not initiate any communication. His oral intake has been also minimal. The tried to feed him and his intake was probably around 5-10% of the entire meal. He did have Klebsiella and Achromobacter species in his sputum. The patient's repeat chest x-ray showed cardiomegaly and increased pulmonary vascular markings bilaterally and the findings of essentially the same. He also has calcified pleural plaques sugg estive of previous asbestos exposure. There may be an underlying CHF in addition. In the right, the patient was being the reason IV Lasix 20 mg every 12 hours. He is producing excellent urine output and he has produced approximately 4-0.7 L over the past 48 hours. His blood work is showing a white cell count of 8.2 with a hemoglobin of 10.8, his serum sodium is improved and felt to 132. His pro calcitonin level was at 0.04. 01/27/2022, I'm seeing the patient for a follow-up. He seems to much more awake compared to yesterday. He is easily arousable. The has noted that the patient's level of alertness is also improved. I was concerned about that as the patient was quite lethargic even after having his sodium level adjusted. Based on that, a CAT scan of the brain was done and it showed chronic stroke without any acute abnormalities. Specifically, CAT scan of the brain showed old bilateral occipital infarct and an old left posterior temporal infarct and chronic small vessel ischemic changes. As for the CAT scan of the chest, this was essentially related to asbestos exposure and the patient is known case of asbestosis. He remains on Levaquin. He has Klebsiella in his sputum which is probably a colonizer. His pro calcitonin level is low. He is receiving enteral feeding for nutritional support. Is also taken some pleasure feeds.The blood work from today shows a white cell count of 10.4 with a hemoglobin of 10.4 and a BUN of 39 with a creatinine of 0.96 and the sodium level is up to 133. The potassium levels at 4.0. 01/28/2022, the patient is awake and arousable. He is communicating. He is however week. He remains on 28% trach collar and a pulse ox is 94%. Is afebrile for now. No significant respiratory secretions. Tolerating his enteral feeding for nutritional support. He also takes some pleasure feeds. No nausea. No emesis. His electronics improved and his sodium level was up to 133 yesterday and this has resulted also improvement in his overall level of alertness. The patient however is still weak and he cannot supervisor front by himself and he cannot ambulate and the felt that she cannot take him home and this current situation. His chest x-ray is consistent with asbestosis. No other new changes noted. Continues to receive enteral feeding for nutritional support via PEG tube. 01/29 2022, the patient remained quite weak. He was seen by rehabilitation services and he was not found to be a good candidate for inpatient sweta abilitation. The patient accordingly is going to be alf facility. Electrolytes are all stable. White cell positives with a hemoglobin of 10.4. Urine is a 44 with a creatinine of 0.5. Remain on the same medication. Antibiotic course has been completed. Afebrile, remains on a 28% trach collar. Continues to receive enteral feeding for nutritional support via PEG tube. Objective - Vital Signs Vital signs: Vital Signs Temp 97.9 F 01/29/22 03:10 Pulse 72 01/29/22 03:10 Resp 20 01/29/22 03:10 BP 103/67 01/29/22 03:10 Pulse Ox 96 01/29/22 08:12 FiO2 28 01/29/22 08:12 Intake & Output 01/28/22 01/29/22 01/29/22 18:59 06:59 18:59 Intake Total 0 1132 118 Output Total 400 Balance -400 1132 118 Intake: Oral 0 118 Tube Feeding 1132 Output: Urine 400 Other: Voiding Method External Catheter External Catheter # Bowel Movements 1 1 - Exam No acute distress, nonverbal, with a midline tracheostomy tube. HEENT examination is grossly unremarkable. Neck supple. Full range of motion. No adenopathy thyromegaly or neck vein distention. Midline tracheostomy tube is noted. The patient is receiving oxygen via a trach collar at 28%. Cardiovascular examination reveals regular rhythm rate. S1-S2 normal. No S3 or S4. No discernible murmur noted. Heart sounds are distant. Lungs reveal scattered bilateral rhonchi and crackles. No wheezes. Breath sounds equal bilaterally. Saturations are 95 %. Abdomen soft, without bowel sounds. PEG tube noted. No masses. Extremities are intact. No cyanosis clubbing or edema. Skin is without rash or lesion. Neurologic examination is brief but nonfocal. - Labs CBC & Chem 7: 01/29/22 08:36 01/29/22 08:36 Labs: Abnormal Lab Results - Last 24 Hours (Table) 01/28/22 01/29/22 01/29/22 Range/Units 18:02 02:09 05:58 RBC (4.30-5.90) m/uL Hgb (13.0-17.5) gm/dL Hct (39.0-53.0) % MCV (80.0-100.0) fL Sodium (137-145) mmol/L Chloride (98-107) mmol/L Carbon Dioxide (22-30) mmol/L BUN (9-20) mg/dL Glucose (74-99) mg/dL POC Glucose (mg/dL) 147 H 143 H 139 H (70-110) mg/dL 01/29/22 01/29/22 01/29/22 Range/Units 08:36 08:36 11:42 RBC 3.12 L (4.30-5.90) m/uL Hgb 10.4 L (13.0-17.5) gm/dL Hct 31.4 L (39.0-53.0) % MCV 100.5 H (80.0-100.0) fL Sodium 134 L (137-145) mmol/L Chloride 90 L (98-107) mmol/L Carbon Dioxide 37 H (22-30) mmol/L BUN 44 H (9-20) mg/dL Glucose 133 H (74-99) mg/dL POC Glucose (mg/dL) 163 H (70-110) mg/dL Microbiology - Last 24 Hours (Table) 01/22/22 15:20 Blood Culture - Final Blood No Growth after 144 hours 01/22/22 15:42 Blood Culture - Final Blood No Growth after 144 hours Assessment and Plan Plan: Shortness of breath, with evidence of CHF/pulmonary edema on chest x-ray, as well as an elevated N-terminal proBNP.patient has produced excellent amount of urine and is responding well to diuretics receiving Lasix 20 mg IV every 12 hours. Araiza catheter still in place. X-ray showing pleural calcification and thickening consistent with previous asbestos exposure. There is some increased interstitial markings/CHF which is still present. Rule out chronic ILD, rule out CHF with preserved LV function. CAT scan of the chest was done and is consistent with asbestosis. The patient also was found to have 4.1 cm ascending aortic aneurysm, incidental finding. Klebsiella and Enterobacter in his sputum. Colonization over infection. The pro-calcitonin level has been low. Lethargy with diminished level of consciousness, recovered . The patient has profound weakness, less interactive. This was initially thought to be metabolic as the patient's sodium level was low. Nevertheless, the sodium level improved the patient is alert, but weak. He has had previous CVA. The CAT scan of the brain was done yesterday and showed old CVA, nothing acute History of throat cancer, status post tracheostomy. Hypervolemic hyponatremia, improving and his sodium level is improving asbestosis Vocal cord paralysis. History of PEG tube placement. History of CVA. History of hyperlipidemia. History of hypertension. History of shingles. Prostate cancer, 2005, status post radiation treatment. Previous history of bypass grafting. Prior history of tobacco use. History of depression. Plan: Clinically stable No changes in his chest x-ray findings No issues with oxygenation NONCONTRAST CAT SCAN OF THE BRAIN, consistent with old CVA Obtain a contrast enhanced CAT scan of the chest, consistent with asbestosis Celia completed Change Lasix to oral 20 mg by mouth twice a day Monitor electrolytes Continue enteral feeding for nutritional support He is very weak and he would benefit from PT and the patient was not found to be a good candidate for inpatient rehab and the patient is going to be released to [facility] We'll continue to follow.
[2022-01-29 16:46] LABS: Glucose,Whole Blood 135 mg/dL (70-110)
[2022-01-29 20:19] LABS: Glucose,Whole Blood 117 mg/dL (70-110)
[2022-01-29] MEDS: TAMSULOSIN 0.4 MG CAP.ER.24H PO SCH (21:26)
[2022-01-29] MEDS: ATORVASTATIN 80 MG TAB PEG/G-TUBE SCH (21:26)
[2022-01-30 06:08] LABS: Glucose,Whole Blood 128 mg/dL (70-110)
[2022-01-30] MEDS: PANTOPRAZOLE 40 MG TABLET PO SCH (06:26)
[2022-01-30] MEDS: FUROSEMIDE 20 MG TAB PO SCH ×2 (10:40→17:29)
[2022-01-30] MEDS: APIXABAN 5 MG TAB PEG/G-TUBE SCH ×2 (10:40→20:59)
[2022-01-30] MEDS: METOPROLOL TARTRATE 25 MG TAB PO SCH ×2 (10:41→20:59)
[2022-01-30] MEDS: PRIMIDONE 50 MG TAB PEG/G-TUBE SCH ×2 (10:41→20:59)
[2022-01-30] MEDS: AMIODARONE 200 MG TAB PEG/G-TUBE SCH (10:41)
[2022-01-30] MEDS: PREGABALIN 75 MG CAP PO SCH ×2 (10:41→20:59)
[2022-01-30] MEDS: methIMAzole 5 MG TAB PO SCH ×3 (10:41→21:27)
[2022-01-30] MEDS: LATANOPROST 0.005% OPHTH DROPS 2.5 ML BTL BOTH EYES SCH (10:41)
[2022-01-30] MEDS: TIMOLOL 0.5% OPHTH DROPS 5 ML BTL BOTH EYES SCH (10:42)
--- NOTE | 2022-01-30 10:45 | P.PN ---
Subjective Progress Note Date: 01/30/22 Principal diagnosis: This 80-year-old male is followed up with SIADH with C of the larynx. More recently because of concern for congestive heart failure and was started on Lasix. His also being fed with a PEG tube ostomy. He looks ill and weak. He is alert and responds and cooperative Vital signs are low blood pressure 98/43 and 105/58. 24 hour intake and output 728 and output not recorded Objective - Vital Signs Vital signs: Vital Signs Temp 98.0 F 01/30/22 03:50 Pulse 85 01/30/22 03:50 Resp 16 01/30/22 03:50 BP 105/58 01/30/22 03:50 Pulse Ox 97 01/30/22 03:50 FiO2 28 01/30/22 08:08 Intake & Output 01/29/22 01/30/22 01/30/22 18:59 06:59 18:59 Intake Total 728 0 Balance 728 0 Intake: Oral 118 0 Tube Feeding 610 Other: Voiding Method External Catheter External Catheter # Bowel Movements 1 Awake alert cooperative but generalized weakness. HEENT exam tracheostomy Lungs are significant for bilateral coarse crackles with poor air entry Heart sounds unremarkable difficult to hear because of the coarse crackles Abdomen soft, Q Extremity exam was no edema Neurologically awake alert but very weak - Labs CBC & Chem 7: 01/29/22 08:36 01/29/22 08:36 Labs: Abnormal Lab Results - Last 24 Hours (Table) 01/29/22 01/29/22 01/29/22 Range/Units 11:42 16:45 20:17 POC Glucose (mg/dL) 163 H 135 H 117 H (70-110) mg/dL 01/30/22 Range/Units 06:06 POC Glucose (mg/dL) 128 H (70-110) mg/dL Assessment and Plan Assessment: Impression 1. SIADH with hyponatremia, sodium improved to 134 as of yesterday last today are pending 2. Possible congestive heart failure on Lasix. Sodium is improving therefore will maintain the Lasix 3. Carcinoma larynx, status post tracheostomy and PEG 4. Generalized weakness and cachexia. 5. Metabolic alkalosis with bicarbonate, slightly better, peak of 40 etiology is diuresis Recommendation 1. Continue Lasix 2. Monitor labs.
[2022-01-30 11:36] LABS: African American GFR (CKD) >90 (>60 ml/min/1.73 sqM); Anion Gap 6 mmol/L; Basophils % (A) 0 %; Blood Urea Nitrogen 43 mg/dL (9-20); Calcium 8.2 mg/dL (8.4-10.2); Carbon Dioxide 36 mmol/L (22-30); Chloride 91 mmol/L (98-107); Eosinophils # (A) 0.3 k/uL (0-0.7); Eosinophils % (A) 3 %; Glucose 126 mg/dL (74-99); HGB 10.1 gm/dL (13.0-17.5); Hypochromasia Slight; Lymphocytes # (A) 1.3 k/uL (1.0-4.8); Lymphocytes % (A) 15 %; MCH 32.9 pg (25.0-35.0); MCHC 32.7 g/dL (31.0-37.0); MCV 100.4 fL (80.0-100.0); Macrocytosis Slight; Monocytes # (A) 0.6 k/uL (0-1.0); Monocytes % (A) 7 %; Neutrophils # (A) 6.1 k/uL (1.3-7.7); Neutrophils % (A) 70 %; Non-African American GFR(CKD) 79 (>60 ml/min/1.73 sqM); Platelet Count 233 k/uL (150-450); RBC 3.09 m/uL (4.30-5.90); RDW 14.5 % (11.5-15.5); Sodium 133 mmol/L (137-145); WBC 8.7 k/uL (3.8-10.6)
[2022-01-30 11:44] LABS: Glucose,Whole Blood 133 mg/dL (70-110)
--- NOTE | 2022-01-30 12:50 | P.PN ---
Subjective Progress Note Date: 01/30/22 On today's evaluation of 01/25/2022, I came to evaluate and metastases Mr. Pires today. The patient has a tracheostomy tube in place. The patient is on a 40% trach collar. His resting comfortably in bed. However it is a bit lethargic. He is receiving enteral feeding for nutritional support 50cc/hr and he has a PEG tube in place. Does not seem to be in significant respiratory distress. I reviewed the records. I also talked to his . He has both cancer and the patient has not undergone any treatment yet. He has also extensive number of comorbid conditions including coronary artery disease, previous bypass surgery, prostate cancer, hypertension, hyperlipidemia, congestion heart failure, and more recently filled cancer. He has a paralyzed vocal cords. At the same time, the patient presented to us with a very low sodium level 119. He was replenished and his sodium level is up to 130. I reviewed the chest x-ray. 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 He has a Araiza catheter in place and is producing adequate amount of urine output. He remains on IV Lasix. Note that his proBNP level at the time of admission was considerably elevated at 14,900. Troponins were minimally elevated at 0.07, 0.06 and 0.07 respectively. Today's evaluation of 01/26/2022, the patient is very slow in answering quest ions. He is awake. He communicates. He follows simple commands. Nevertheless, is extensively weak in all 4 extremities and he has a very blunt affect. Looks around and he does not initiate any communication. His oral intake has been also minimal. The tried to feed him and his intake was probably around 5-10% of the entire meal. He did have Klebsiella and Achromobacter species in his sputum. The patient's repeat chest x-ray showed cardiomegaly and increased pulmonary vascular markings bilaterally and the findings of essentially the same. He also has calcified pleural plaques sugg estive of previous asbestos exposure. There may be an underlying CHF in addition. In the right, the patient was being the reason IV Lasix 20 mg every 12 hours. He is producing excellent urine output and he has produced approximately 4-0.7 L over the past 48 hours. His blood work is showing a white cell count of 8.2 with a hemoglobin of 10.8, his serum sodium is improved and felt to 132. His pro calcitonin level was at 0.04. 01/27/2022, I'm seeing the patient for a follow-up. He seems to much more awake compared to yesterday. He is easily arousable. The has noted that the patient's level of alertness is also improved. I was concerned about that as the patient was quite lethargic even after having his sodium level adjusted. Based on that, a CAT scan of the brain was done and it showed chronic stroke without any acute abnormalities. Specifically, CAT scan of the brain showed old bilateral occipital infarct and an old left posterior temporal infarct and chronic small vessel ischemic changes. As for the CAT scan of the chest, this was essentially related to asbestos exposure and the patient is known case of asbestosis. He remains on Levaquin. He has Klebsiella in his sputum which is probably a colonizer. His pro calcitonin level is low. He is receiving enteral feeding for nutritional support. Is also taken some pleasure feeds.The blood work from today shows a white cell count of 10.4 with a hemoglobin of 10.4 and a BUN of 39 with a creatinine of 0.96 and the sodium level is up to 133. The potassium levels at 4.0. 01/28/2022, the patient is awake and arousable. He is communicating. He is however week. He remains on 28% trach collar and a pulse ox is 94%. Is afebrile for now. No significant respiratory secretions. Tolerating his enteral feeding for nutritional support. He also takes some pleasure feeds. No nausea. No emesis. His electronics improved and his sodium level was up to 133 yesterday and this has resulted also improvement in his overall level of alertness. 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 His chest x-ray is consistent with asbestosis. No other new changes noted. Continues to receive enteral feeding for nutritional support via PEG tube. 01/29 2022, the patient remained quite weak. He was seen by rehabilitation services and he was not found to be a good candidate for inpatient sweta abilitation. The patient accordingly is going to be alf facility. Electrolytes are all stable. White cell positives with a hemoglobin of 10.4. Urine is a 44 with a creatinine of 0.5. Remain on the same medication. Antibiotic course has been completed. Afebrile, remains on a 28% trach collar. Continues to receive enteral feeding for nutritional support via PEG tube. 01/30/2022, the patient is clinically stable. He is having some loose liquidy respiratory secretions which are being suctioned out. He has a tracheostomy tube in place. He also has chronic asbestosis and COPD. Continues to be significant feeding for nutritional support. No aspiration. The white cell count was 8.7 with a hemoglobin of 10, sodium is 133 BUN is at 43 with a creatinine of 0.9. No emesis. He is still profoundly weak. Objective - Vital Signs Vital signs: Vital Signs Temp 98.0 F 01/30/22 03:50 Pulse 85 01/30/22 03:50 Resp 16 01/30/22 03:50 BP 105/58 01/30/22 03:50 Pulse Ox 97 01/30/22 03:50 FiO2 28 01/30/22 08:08 Intake & Output 01/29/22 01/30/22 01/30/22 18:59 06:59 18:59 Intake Total 728 0 Balance 728 0 Intake: Oral 118 0 Tube Feeding 610 Other: Voiding Method External Catheter External Catheter # Bowel Movements 1 - Exam No acute distress, nonverbal, with a midline tracheostomy tube. HEENT examination is grossly unremarkable. Neck supple. Full range of motion. No adenopathy thyromegaly or neck vein distention. Midline tracheostomy tube is noted. The patient is receiving oxygen via a trach collar at 28%. Cardiovascular examination reveals regular rhythm rate. S1-S2 normal. No S3 or S4. No discernible murmur noted. Heart sounds are distant. Lungs reveal scattered bilateral rhonchi and crackles. No wheezes. Breath sounds equal bilaterally. Saturations are 95 %. Abdomen soft, without bowel sounds. PEG tube noted. No masses. Extremities are intact. No cyanosis clubbing or edema. Skin is without rash or lesion. Neurologic examination is brief but nonfocal. - Labs CBC & Chem 7: 01/30/22 10:09 01/30/22 10:09 Labs: Abnormal Lab Results - Last 24 Hours (Table) 01/29/22 01/29/22 01/30/22 Range/Units 16:45 20:17 06:06 RBC (4.30-5.90) m/uL Hgb (13.0-17.5) gm/dL Hct (39.0-53.0) % MCV (80.0-100.0) fL Sodium (137-145) mmol/L Chloride (98-107) mmol/L Carbon Dioxide (22-30) mmol/L BUN (9-20) mg/dL Glucose (74-99) mg/dL POC Glucose (mg/dL) 135 H 117 H 128 H (70-110) mg/dL Calcium (8.4-10.2) mg/dL 01/30/22 01/30/22 01/30/22 Range/Units 10:09 10:09 11:42 RBC 3.09 L (4.30-5.90) m/uL Hgb 10.1 L (13.0-17.5) gm/dL Hct 31.0 L (39.0-53.0) % MCV 100.4 H (80.0-100.0) fL Sodium 133 L (137-145) mmol/L Chloride 91 L (98-107) mmol/L Carbon Dioxide 36 H (22-30) mmol/L BUN 43 H (9-20) mg/dL Glucose 126 H (74-99) mg/dL POC Glucose (mg/dL) 133 H (70-110) mg/dL Calcium 8.2 L (8.4-10.2) mg/dL Assessment and Plan Plan: Shortness of breath, with evidence of CHF/pulmonary edema on chest x-ray, as well as an elevated N-terminal proBNP.patient has produced excellent amount of urine and is responding well to diuretics receiving Lasix 20 mg IV every 12 hours. Araiza catheter still in place. X-ray showing pleural calcification and thickening consistent with previous asbestos exposure. There is some increased interstitial markings/CHF which is still present. Rule out chronic ILD, rule out CHF with preserved LV function. CAT scan of the chest was done and is consistent with asbestosis. The patient also was found to have 4.1 cm ascending aortic aneurysm, incidental finding. Klebsiella and Enterobacter in his sputum. Colonization over infection. The pro-calcitonin level has been low. Lethargy with diminished level of consciousness, recovered . The patient has profound weakness, less interactive. This was initially thought to be metabolic as the patient's sodium level was low. Nevertheless, the sodium level improved the patient is alert, but weak. He has had previous CVA. The CAT scan of the brain was done yesterday and showed old CVA, nothing acute History of throat cancer, status post tracheostomy. Hypervolemic hyponatremia, improving and his sodium level is improving asbestosis Vocal cord paralysis. History of PEG tube placement. History of CVA. History of hyperlipidemia. History of hypertension. History of shingles. Prostate cancer, 2004, status post radiation treatment. Previous history of bypass grafting. Prior history of tobacco use. History of depression. Plan: Clinically unchanged compared to yesterday Perform all my toileting Clinically stable No changes in his chest x-ray findings No issues with oxygenation NONCONTRAST CAT SCAN OF THE BRAIN, consistent with old CVA Obtain a contrast enhanced CAT scan of the chest, consistent with asbestosis Levjulyuin completed Lasix to oral 20 mg by mouth twice a day Monitor electrolytes Continue enteral feeding for nutritional support He is very weak and he would benefit from PT and the patient was not found to be a good candidate for inpatient rehab and the patient is going to be released to [place] We'll continue to follow.
[2022-01-30 17:22] LABS: Glucose,Whole Blood 141 mg/dL (70-110)
[2022-01-30 19:38] LABS: Glucose,Whole Blood 128 mg/dL (70-110)
[2022-01-30] MEDS: TAMSULOSIN 0.4 MG CAP.ER.24H PO SCH (20:59)
[2022-01-30] MEDS: ATORVASTATIN 80 MG TAB PEG/G-TUBE SCH (20:59)
[2022-01-31 06:00] LABS: Glucose,Whole Blood 157 mg/dL (70-110)
[2022-01-31] MEDS: PANTOPRAZOLE 40 MG TABLET PO SCH (06:35)
[2022-01-31] MEDS: AMIODARONE 200 MG TAB PEG/G-TUBE SCH (09:48)
[2022-01-31] MEDS: APIXABAN 5 MG TAB PEG/G-TUBE SCH ×2 (09:48→21:42)
[2022-01-31] MEDS: FUROSEMIDE 20 MG TAB PO SCH ×2 (09:48→15:10)
[2022-01-31] MEDS: methIMAzole 5 MG TAB PO SCH ×3 (09:48→23:11)
[2022-01-31] MEDS: PREGABALIN 75 MG CAP PO SCH ×2 (09:48→21:42)
[2022-01-31] MEDS: PRIMIDONE 50 MG TAB PEG/G-TUBE SCH ×2 (09:48→21:42)
[2022-01-31] MEDS: METOPROLOL TARTRATE 25 MG TAB PO SCH ×2 (09:48→21:42)
[2022-01-31] MEDS: LATANOPROST 0.005% OPHTH DROPS 2.5 ML BTL BOTH EYES SCH (09:49)
[2022-01-31] MEDS: TIMOLOL 0.5% OPHTH DROPS 5 ML BTL BOTH EYES SCH (09:49)
--- NOTE | 2022-01-31 10:00 | P.PN ---
Subjective Progress Note Date: 01/31/22 Principal diagnosis: This 80-year-old male is followed up with SIADH with Ca of the larynx. More recently because of concern for congestive heart failure and was started on Lasix. His chest x-ray on 01/28/2022 was suggestive congestive heart failure, as well as bilateral calcified pleural plaques suggestive of asbestosis exposure mild cardiomegaly blood and small pleural effusions and patchy bibasilar His also being fed with a PEG tube ostomy. He looks ill and weak. He is alert and responds and cooperative Vital signs are low blood pressure 90' to 120 sys 24 hour intake 808 and output 150 mL, this may be an underestimation because he has an external Araiza. his creatinine was 0.90 as of yesterday with a sodium stable at 133 Objective - Vital Signs Vital signs: Vital Signs Temp 97.7 F 01/30/22 23:11 Pulse 106 H 01/31/22 03:23 Resp 20 01/31/22 03:23 BP 103/56 01/31/22 03:23 Pulse Ox 95 01/31/22 03:23 FiO2 28 01/31/22 09:42 Intake & Output 01/30/22 01/31/22 01/31/22 18:59 06:59 18:59 Intake Total 808 205 Output Total 150 Balance 808 -150 205 Weight 66 kg Intake: IV 5 Invasive Line 1 5 Oral 208 Tube Feeding 600 200 Output: Urine 150 Other: Voiding Method External Catheter External Catheter External Catheter Weak and tired and cachectic HEENT exam no JVP noted he has a tracheostomy Lungs are significant for an bilateral coarse crackles. Good air entry bilaterally Heart sounds unremarkable for any murmur rub gallop abdomen soft nontender Extremity exam reveals no edema in his legs but his right arm is fairly swollen. Neurologically generalized weakness responds to questions but because of tracheostomy unable to speak but tries to follow commands but very weak - Labs CBC & Chem 7: 01/30/22 10:09 01/30/22 10:09 Labs: Abnormal Lab Results - Last 24 Hours (Table) 01/30/22 01/30/22 01/30/22 Range/Units 10: 10: 11:42 RBC 3.09 L (4.30-5.90) m/uL Hgb 10.1 L (13.0-17.5) gm/dL Hct 31.0 L (39.0-53.0) % MCV 100.4 H (80.0-100.0) fL Sodium 133 L (137-145) mmol/L Chloride 91 L (98-107) mmol/L Carbon Dioxide 36 H (22-30) mmol/L BUN 43 H (9-20) mg/dL Glucose 126 H (74-99) mg/dL POC Glucose (mg/dL) 133 H (70-110) mg/dL Calcium 8.2 L (8.4-10.2) mg/dL 01/30/22 01/30/22 01/31/22 Range/Units 16:59 19:37 05:58 RBC (4.30-5.90) m/uL Hgb (13.0-17.5) gm/dL Hct (39.0-53.0) % MCV (80.0-100.0) fL Sodium (137-145) mmol/L Chloride (98-107) mmol/L Carbon Dioxide (22-30) mmol/L BUN (9-20) mg/dL Glucose (74-99) mg/dL POC Glucose (mg/dL) 141 H 128 H 157 H (70-110) mg/dL Calcium (8.4-10.2) mg/dL Assessment and Plan Assessment: Impression 1. SIADH with hyponatremia, sodium 134 > 133 as of yesterday last today are pending. Creatinine 0.9 and BN is 43 2. Possible congestive heart failure on Lasix 20 mg twice a day by mouth. Sodium is improving therefore will maintain the Lasix 3. Carcinoma larynx, status post tracheostomy and PEG 4. Generalized weakness and cachexia. 5. Metabolic alkalosis with bicarbonate, bicarb is 36 currently slightly better, peak of 40 etiology is diuresis Recommendation 1. Continue Lasix 2. Monitor labs.
[2022-01-31 11:28] LABS: Glucose,Whole Blood 132 mg/dL (70-110)
--- NOTE | 2022-01-31 11:51 | P.PN ---
Subjective Progress Note Date: 01/31/22 On today's evaluation of 01/25/2022, I came to evaluate and metastases Mr. Pires today. The patient has a tracheostomy tube in place. The patient is on a 40% trach collar. His resting comfortably in bed. However it is a bit lethargic. He is receiving enteral feeding for nutritional support 50cc/hr and he has a PEG tube in place. Does not seem to be in significant respiratory distress. I reviewed the records. I also talked to his . He has both cancer and the patient has not undergone any treatment yet. He has also extensive number of comorbid conditions including coronary artery disease, previous bypass surgery, prostate cancer, hypertension, hyperlipidemia, congestion heart failure, and more recently filled cancer. He has a paralyzed vocal cords. At the same time, the patient presented to us with a very low sodium level 119. He was replenished and his sodium level is up to 130. I reviewed the chest x-ray. 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 He has a Araiza catheter in place and is producing adequate amount of urine output. He remains on IV Lasix. Note that his proBNP level at the time of admission was considerably elevated at 14,900. Troponins were minimally elevated at 0.07, 0.06 and 0.07 respectively. Today's evaluation of 01/26/2022, the patient is very slow in answering quest ions. He is awake. He communicates. He follows simple commands. Nevertheless, is extensively weak in all 4 extremities and he has a very blunt affect. Looks around and he does not initiate any communication. His oral intake has been also minimal. The tried to feed him and his intake was probably around 5-10% of the entire meal. He did have Klebsiella and Achromobacter species in his sputum. The patient's repeat chest x-ray showed cardiomegaly and increased pulmonary vascular markings bilaterally and the findings of essentially the same. He also has calcified pleural plaques sugg estive of previous asbestos exposure. There may be an underlying CHF in addition. In the right, the patient was being the reason IV Lasix 20 mg every 12 hours. He is producing excellent urine output and he has produced approximately 4-0.7 L over the past 48 hours. His blood work is showing a white cell count of 8.2 with a hemoglobin of 10.8, his serum sodium is improved and felt to 132. His pro calcitonin level was at 0.04. 01/27/2022, I'm seeing the patient for a follow-up. He seems to much more awake compared to yesterday. He is easily arousable. The has noted that the patient's level of alertness is also improved. I was concerned about that as the patient was quite lethargic even after having his sodium level adjusted. Based on that, a CAT scan of the brain was done and it showed chronic stroke without any acute abnormalities. Specifically, CAT scan of the brain showed old bilateral occipital infarct and an old left posterior temporal infarct and chronic small vessel ischemic changes. As for the CAT scan of the chest, this was essentially related to asbestos exposure and the patient is known case of asbestosis. He remains on Levaquin. He has Klebsiella in his sputum which is probably a colonizer. His pro calcitonin level is low. He is receiving enteral feeding for nutritional support. Is also taken some pleasure feeds.The blood work from today shows a white cell count of 10.4 with a hemoglobin of 10.4 and a BUN of 39 with a creatinine of 0.96 and the sodium level is up to 133. The potassium levels at 4.0. 01/28/2022, the patient is awake and arousable. He is communicating. He is however week. He remains on 28% trach collar and a pulse ox is 94%. Is afebrile for now. No significant respiratory secretions. Tolerating his enteral feeding for nutritional support. He also takes some pleasure feeds. No nausea. No emesis. His electronics improved and his sodium level was up to 133 yesterday and this has resulted also improvement in his overall level of alertness. 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 His chest x-ray is consistent with asbestosis. No other new changes noted. Continues to receive enteral feeding for nutritional support via PEG tube. 01/29 2022, the patient remained quite weak. He was seen by rehabilitation services and he was not found to be a good candidate for inpatient sweta abilitation. The patient accordingly is going to be long term facility. Electrolytes are all stable. White cell positives with a hemoglobin of 10.4. Urine is a 44 with a creatinine of 0.5. Remain on the same medication. Antibiotic course has been completed. Afebrile, remains on a 28% trach collar. Continues to receive enteral feeding for nutritional support via PEG tube. 01/30/2022, the patient is clinically stable. He is having some loose liquidy respiratory secretions which are being suctioned out. He has a tracheostomy tube in place. He also has chronic asbestosis and COPD. Continues to be significant feeding for nutritional support. No aspiration. The white cell count was 8.7 with a hemoglobin of 10, sodium is 133 BUN is at 43 with a creatinine of 0.9. No emesis. He is still profoundly weak. Plan 62,022, noting the patient's condition. Resting comfortably in bed. Remain on oral Lasix. Remains on enteral feeding for nutritional support. He will need long term placement. Remains profoundly weak. Objective - Vital Signs Vital signs: Vital Signs Temp 97.7 F 01/30/22 23:11 Pulse 106 H 01/31/22 03:23 Resp 20 01/31/22 09:37 BP 103/56 01/31/22 03:23 Pulse Ox 95 01/31/22 03:23 FiO2 28 01/31/22 09:42 Intake & Output 01/30/22 01/31/22 01/31/22 18:59 06:59 18:59 Intake Total 808 210 Output Total 150 Balance 808 -150 210 Weight 66 kg Intake: IV 10 Invasive Line 1 10 Oral 208 Tube Feeding 600 200 Output: Urine 150 Other: Voiding Method External Catheter External Catheter External Catheter - Exam No acute distress, nonverbal, with a midline tracheostomy tube. HEENT examination is grossly unremarkable. Neck supple. Full range of motion. No adenopathy thyromegaly or neck vein distention. Midline tracheostomy tube is noted. The patient is receiving oxygen via a trach collar at 28%. Cardiovascular examination reveals regular rhythm rate. S1-S2 normal. No S3 or S4. No discernible murmur noted. Heart sounds are distant. Lungs reveal scattered bilateral rhonchi and crackles. No wheezes. Breath sounds equal bilaterally. Saturations are 95 %. Abdomen soft, without bowel sounds. PEG tube noted. No masses. Extremities are intact. No cyanosis clubbing or edema. Skin is without rash or lesion. Neurologic examination is brief but nonfocal. - Labs CBC & Chem 7: 01/30/22 10:09 01/30/22 10:09 Labs: Abnormal Lab Results - Last 24 Hours (Table) 01/30/22 01/30/22 01/31/22 Range/Units 16:59 19:37 05:58 POC Glucose (mg/dL) 141 H 128 H 157 H (70-110) mg/dL 01/31/22 Range/Units 11:20 POC Glucose (mg/dL) 132 H (70-110) mg/dL Assessment and Plan Plan: Shortness of breath, with evidence of CHF/pulmonary edema on chest x-ray, as well as an elevated N-terminal proBNP.patient has produced excellent amount of urine and is responding well to diuretics receiving Lasix 20 mg IV every 12 hours. Araiza catheter still in place. X-ray showing pleural calcification and thickening consistent with previous asbestos exposure. There is some increased interstitial markings/CHF which is still present. Rule out chronic ILD, rule out CHF with preserved LV function. CAT scan of the chest was done and is consistent with asbestosis. The patient also was found to have 4.1 cm ascending aortic aneurysm, incidental finding. Klebsiella and Enterobacter in his sputum. Colonization over infection. The pro-calcitonin level has been low. Lethargy with diminished level of consciousness, recovered . The patient has profound weakness, less interactive. This was initially thought to be metabolic as the patient's sodium level was low. Nevertheless, the sodium level improved the patient is alert, but weak. He has had previous CVA. The CAT scan of the brain was done yesterday and showed old CVA, nothing acute History of throat cancer, status post tracheostomy. Hypervolemic hyponatremia, improving and his sodium level is improving asbestosis Vocal cord paralysis. History of PEG tube placement. History of CVA. History of hyperlipidemia. History of hypertension. History of shingles. Prostate cancer, 2005, status post radiation treatment. Previous history of bypass grafting. Prior history of tobacco use. History of depression. Plan: Clinically unchanged compared to yesterday, remains stable Perform all my toileting Clinically stable No changes in his chest x-ray findings No issues with oxygenation NONCONTRAST CAT SCAN OF THE BRAIN, consistent with old CVA Obtain a contrast enhanced CAT scan of the chest, consistent with asbestosis Celia completed Lasix to oral 20 mg by mouth twice a day Monitor electrolytes Continue enteral feeding for nutritional support He is very weak and he would benefit from PT and the patient was not found to be a good candidate for inpatient rehab and the patient is going to be released to [place] We'll sign off the case. The patient will need a long term placement.
[2022-01-31] MEDS: ACETAMINOPHEN TAB 325 MG TAB PO PRN (13:18)
[2022-01-31] MEDS: HYDROcodone/APAP 5-325MG 1 EACH TAB PO PRN ×2 (15:11→21:42)
[2022-01-31 16:53] LABS: Glucose,Whole Blood 130 mg/dL (70-110)
[2022-01-31] MEDS: CHOLESTYRAMINE (WITH SUGAR) 4 GM PACKET PO SCH (17:53)
[2022-01-31 20:34] LABS: Glucose,Whole Blood 143 mg/dL (70-110)
[2022-01-31] MEDS: TAMSULOSIN 0.4 MG CAP.ER.24H PO SCH (21:42)
[2022-01-31] MEDS: ATORVASTATIN 80 MG TAB PEG/G-TUBE SCH (21:42)
--- NOTE | 2022-02-01 00:23 | P.PN ---
Subjective Progress Note Date: 01/28/22 This is a pleasant 81 years old male with past medical history of CVA/TIA, GERD/Reflux, Hyperlipidemia, Hypertension, shingles few yrs ago-still w/residual leg pain, tremors, hx. prostate cancer 2004 w/radiation tx., h/o Coronary Bypass/CABG, , valve repair, history of atrial fibrillation Patient sent by his PCP Dr. Paul for low sodium of 121 patient is awake alert and follows commands but is poor historian. He denies dyspnea but is lying in bed most of the time, no leg edema however he has bilateral basilar crepitations on some dependent trunk edema. No chest pain or abdominal pain. No rash or redness of the skin. Patient has trach collar with 5 L/m of oxygen. He has PEG tube and external urine catheter Patient blood pressure on low normal side 87/55, he is on 5 L/m off trach collar. Slightly tachypneic about 19 breast permanent and afebrile. WBC 11.1, hemoglobin 10.7. Sodium 120 and 119. His BMP is unremarkable. Elevated troponin 0.07 and 0.06 and 0.07. Elevated proBNP 140 900. Urine analysis is negative. Stewart virus is not detected. EKG showing atrial flutter with a rate of 120. Chest x-ray: Extensive calcified pleural plaque. There is evidence of congestive heart failure with pulmonary edema which is mostly new compared to yesterday small pleural effusions are unchanged 01/24/2022 Patient improving slowly and gradually. No shortness of breath while at rest. He is breathing quietly. His sodium is also improving up to 128, and is kept on IV Lasix 20 mg twice daily. Augmentin Kumpe discontinue it. The procalcitonin is negative. Also patient has evidence of hyperthyroidism with T4 is 5.8 and low TSH 0.2. Patient is a started on methimazole. 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 Patient continued on a liquid 5 mg for his chronic atrial fibrillation He is getting tube feeds at 30 mL/h He has Araiza catheter with clear urine 01/25/2022 Patient is currently lying in bed comfortably. Awake alert and oriented but lethargic. On 40% FiO2 by trach collar. Sodium level improved to 130 today. Patient is tolerating PEG tube feeding. Araiza catheter in place. Patient is being continued on Lasix 20 mg IV twice a day. Anticoagulation with eliquis and also on amiodarone. Laboratory data showed sodium 1:30 potassium 3.9 chloride 86 bicarb is 38 BUN 34 and creatinine 0.97 and blood sugar is 144 01/26/2022 Patient is currently lying in the bed. Awake alert but seems to be confused and lethargic today. No complaints of chest pain or worsening shortness of breath. Patient has generalized weakness. Patient is tolerating PEG tube feeding. Sputum culture showing Klebsiella and Achromobacter Chest x-ray showed the demonstrated bilateral calcified pleural plaques suggesting prior asbestos exposure similar mild cardiomegaly mild interstitial and patchy opacities that may reflect CHF with vascular congestion and mild patchy pulmonary edema. Laboratory data showed WBCs 8.2 hemoglobin 10.8 and platelets 340 BUN 36 and creatinine 0.94 sodium 132 potassium 3.8 chloride 86 and blood sugar 144. Pulmonary is on board. 01/27/2022 Patient is currently lying in the bed. Seems to be more awake and alert and oriented. No complaints of chest pain or worsening shortness of breath. CT chest showed extensive calcified pleural plaque. Cardiomegaly. Abdomen is. 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 Calcified plate and pleural fluid increases compared to abdominal computed tomography scan on 08/27/2011. Small pleural effusion at the lung bases and mild basilar pulmonary infiltrates. Patient is being continued on Lasix 20 mg twice a day. Afebrile. No nausea vomiting or diarrhea. Patient is on oxygen by trach collar. Laboratory data showed WBC 10.4 hemoglobin 10.4 and platelets 295 Sodium 133 potassium 4.0 chloride 88 bicarb is 39 BUN 13 and creatinine 0.96 and blood sugar is 136. Pro-Level Is 0.05 01/28/2022 Patient is currently resting in bed. Awake and able to open his eyes and is able to communicate. Patient is otherwise having generalized weakness. Dementia oxygen via trach collar. Tolerating tube feeding. Heart rate did improve after adding metoprolol. Laboratory reviewed. Procalcitonin level is 0.05. Patient is being currently Lasix 20 mg twice daily. Discussed with his at bedside in detail. Current medications reviewed. Objective - Vital Signs Vital signs: Vital Signs Temp 98.2 F 01/28/22 15:00 Pulse 86 01/28/22 15:00 Resp 20 01/28/22 15:00 BP 98/54 01/28/22 15:00 Pulse Ox 93 L 01/28/22 15:00 FiO2 28 01/28/22 17:27 Intake & Output 01/28/22 01/28/22 01/29/22 06:59 18:59 06:59 Intake Total 696 0 Output Total 600 400 Balance 96 -400 Intake: Oral 0 Tube Feeding 696 Output: Urine 600 400 Other: Voiding Method External Catheter External Catheter # Bowel Movements 1 1 - Exam - Exam GENERAL: The patient is alert and oriented x3, not in any acute distress. Well developed, well nourished. -HEENT: Pupils are round and equally reacting to light. EOMI. No scleral icterus. No conjunctival pallor. Normocephalic, atraumatic. No pharyngeal erythema. No thyromegaly. Trach collar in place CARDIOVASCULAR: S1 and S2 present. No murmurs, rubs, or gallops. PULMONARY: Chest is clear to auscultation, no wheezing or crackles. -ABDOMEN: Soft, nontender, nondistended, normoactive bowel sounds. No palpable organomegaly. PEG tube and a Place MUSCULOSKELETAL: No joint swelling or deformity. EXTREMITIES: No cyanosis, clubbing, or pedal edema. NEUROLOGICAL: Gross neurological examination did not reveal any focal deficits. SKIN: No rashes. no petechiae. - Labs CBC & Chem 7: 01/30/22 10:09 01/30/22 10:09 Labs: Abnormal Lab Results - Last 24 Hours (Table) 01/28/22 01/28/22 01/28/22 Range/Units 00:17 06:15 12:21 Sodium (137-145) mmol/L POC Glucose (mg/dL) 145 H 142 H 153 H (70-110) mg/dL 01/28/22 01/28/22 Range/Units 12:27 18:02 Sodium 131 L (137-145) mmol/L POC Glucose (mg/dL) 147 H (70-110) mg/dL Microbiology - Last 24 Hours (Table) 01/22/22 15:20 Blood Culture - Final Blood No Growth after 144 hours 01/22/22 15:42 Blood Culture - Final Blood No Growth after 144 hours Assessment and Plan Assessment: Acute on Chronic CHF exacerbation. Preserved EF. Ejection fraction 50-55% Hypervolemic hyponatremia. Improving. Klebsiella species in the sputum culture. Possible contaminant. level is also low. 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 Pro-calcitonin level is low and Klebsiella possibly contaminant in the sputum sample. Patient was continued on IV Lasix. Changed to Lasix 20 mg by mouth twice a day Continue with methimazole. Patient is also on propranolol at home. Cardiology, nephrology and pulmonary is on board. Discontinue propranolol and continue with him amiodarone per cardiology recommendations. Labs and medication were reviewed. Monitor lytes and vitals. DVT prophylaxis: eliquis GI Prophylaxis: Pepcid Prognosis is guarded Anticipate discharged to rehab versus home with home health care. Time with Patient: Greater than 30
--- NOTE | 2022-02-01 00:25 | P.PN ---
Subjective Progress Note Date: 01/29/22 This is a pleasant 81 years old male with past medical history of CVA/TIA, GERD/Reflux, Hyperlipidemia, Hypertension, shingles few yrs ago-still w/residual leg pain, tremors, hx. prostate cancer 2004 w/radiation tx., h/o Coronary Bypass/CABG, , valve repair, history of atrial fibrillation Patient sent by his PCP Dr. Paul for low sodium of 121 patient is awake alert and follows commands but is poor historian. He denies dyspnea but is lying in bed most of the time, no leg edema however he has bilateral basilar crepitations on some dependent trunk edema. No chest pain or abdominal pain. No rash or redness of the skin. Patient has trach collar with 5 L/m of oxygen. He has PEG tube and external urine catheter Patient blood pressure on low normal side 87/55, he is on 5 L/m off trach collar. Slightly tachypneic about 19 breast permanent and afebrile. WBC 11.1, hemoglobin 10.7. Sodium 120 and 119. His BMP is unremarkable. Elevated troponin 0.07 and 0.06 and 0.07. Elevated proBNP 140 900. Urine analysis is negative. Stewart virus is not detected. EKG showing atrial flutter with a rate of 120. Chest x-ray: Extensive calcified pleural plaque. There is evidence of congestive heart failure with pulmonary edema which is mostly new compared to yesterday small pleural effusions are unchanged 01/24/2022 Patient improving slowly and gradually. No shortness of breath while at rest. He is breathing quietly. His sodium is also improving up to 128, and is kept on IV Lasix 20 mg twice daily. Augmentin Kumpe discontinue it. The procalcitonin is negative. Also patient has evidence of hyperthyroidism with T4 is 5.8 and low TSH 0.2. Patient is a started on methimazole. 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 Patient continued on a liquid 5 mg for his chronic atrial fibrillation He is getting tube feeds at 30 mL/h He has Araiza catheter with clear urine 01/25/2022 Patient is currently lying in bed comfortably. Awake alert and oriented but lethargic. On 40% FiO2 by trach collar. Sodium level improved to 130 today. Patient is tolerating PEG tube feeding. Araiza catheter in place. Patient is being continued on Lasix 20 mg IV twice a day. Anticoagulation with eliquis and also on amiodarone. Laboratory data showed sodium 1:30 potassium 3.9 chloride 86 bicarb is 38 BUN 34 and creatinine 0.97 and blood sugar is 144 01/26/2022 Patient is currently lying in the bed. Awake alert but seems to be confused and lethargic today. No complaints of chest pain or worsening shortness of breath. Patient has generalized weakness. Patient is tolerating PEG tube feeding. Sputum culture showing Klebsiella and Achromobacter Chest x-ray showed the demonstrated bilateral calcified pleural plaques suggesting prior asbestos exposure similar mild cardiomegaly mild interstitial and patchy opacities that may reflect CHF with vascular congestion and mild patchy pulmonary edema. Laboratory data showed WBCs 8.2 hemoglobin 10.8 and platelets 340 BUN 36 and creatinine 0.94 sodium 132 potassium 3.8 chloride 86 and blood sugar 144. Pulmonary is on board. 01/27/2022 Patient is currently lying in the bed. Seems to be more awake and alert and oriented. No complaints of chest pain or worsening shortness of breath. CT chest showed extensive calcified pleural plaque. Cardiomegaly. Abdomen is. 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 Calcified plate and pleural fluid increases compared to abdominal computed tomography scan on 08/27/2011. Small pleural effusion at the lung bases and mild basilar pulmonary infiltrates. Patient is being continued on Lasix 20 mg twice a day. Afebrile. No nausea vomiting or diarrhea. Patient is on oxygen by trach collar. Laboratory data showed WBC 10.4 hemoglobin 10.4 and platelets 295 Sodium 133 potassium 4.0 chloride 88 bicarb is 39 BUN 13 and creatinine 0.96 and blood sugar is 136. Pro-Level Is 0.05 01/28/2022 Patient is currently resting in bed. Awake and able to open his eyes and is able to communicate. Patient is otherwise having generalized weakness. Dementia oxygen via trach collar. Tolerating tube feeding. Heart rate did improve after adding metoprolol. Laboratory reviewed. Procalcitonin level is 0.05. Patient is being currently Lasix 20 mg twice daily. Discussed with his at bedside in detail. 01/29/2022 Patient is currently resting in bed. Awake alert and oriented. Tries to communicate. Currently on oxygen via trach collar on room air. Afebrile. No nausea vomiting or diarrhea. Tolerating PEG tube feeding. Patient was seen by PM&R and not a candidate for inpatient rehab. Patient is awaiting for subacute rehab. Laboratory data showed WBC 8.0 hemoglobin 10.4 and platelets 278 Sodium 134 potassium 4.0 chloride 90 bicarb is 37 BUN 44 and creatinine 0.96 and blood sugar is 133. Pulmonary and nephrology is on board. Current medications reviewed. Objective - Vital Signs Vital signs: Vital Signs Temp 98.1 F 01/29/22 19:48 Pulse 70 01/29/22 19:48 Resp 16 01/29/22 19:48 BP 133/70 01/29/22 19:48 Pulse Ox 96 01/29/22 19:48 FiO2 28 01/29/22 19:48 Intake & Output 01/29/22 01/29/22 01/30/22 06:59 18:59 06:59 Intake Total 1132 728 Balance 1132 728 Intake: Oral 118 Tube Feeding 1132 610 Other: Voiding Method External Catheter External Catheter # Bowel Movements 1 - Exam - Exam GENERAL: The patient is alert and oriented x3, not in any acute distress. Well developed, well nourished. -HEENT: Pupils are round and equally reacting to light. EOMI. No scleral icterus. No conjunctival pallor. Normocephalic, atraumatic. No pharyngeal erythema. No thyromegaly. Trach collar in place CARDIOVASCULAR: S1 and S2 present. No murmurs, rubs, or gallops. PULMONARY: Chest is clear to auscultation, no wheezing or crackles. -ABDOMEN: Soft, nontender, nondistended, normoactive bowel sounds. No palpable organomegaly. PEG tube and a Place MUSCULOSKELETAL: No joint swelling or deformity. EXTREMITIES: No cyanosis, clubbing, or pedal edema. NEUROLOGICAL: Gross neurological examination did not reveal any focal deficits. SKIN: No rashes. no petechiae. - Labs CBC & Chem 7: 01/30/22 10:09 01/30/22 10:09 Labs: Abnormal Lab Results - Last 24 Hours (Table) 01/29/22 01/29/22 01/29/22 Range/Units 02:09 05:58 08:36 RBC 3.12 L (4.30-5.90) m/uL Hgb 10.4 L (13.0-17.5) gm/dL Hct 31.4 L (39.0-53.0) % MCV 100.5 H (80.0-100.0) fL Sodium (137-145) mmol/L Chloride (98-107) mmol/L Carbon Dioxide (22-30) mmol/L BUN (9-20) mg/dL Glucose (74-99) mg/dL POC Glucose (mg/dL) 143 H 139 H (70-110) mg/dL 01/29/22 01/29/22 01/29/22 Range/Units 08:36 11:42 16:45 RBC (4.30-5.90) m/uL Hgb (13.0-17.5) gm/dL Hct (39.0-53.0) % MCV (80.0-100.0) fL Sodium 134 L (137-145) mmol/L Chloride 90 L (98-107) mmol/L Carbon Dioxide 37 H (22-30) mmol/L BUN 44 H (9-20) mg/dL Glucose 133 H (74-99) mg/dL POC Glucose (mg/dL) 163 H 135 H (70-110) mg/dL 01/29/22 Range/Units 20:17 RBC (4.30-5.90) m/uL Hgb (13.0-17.5) gm/dL Hct (39.0-53.0) % MCV (80.0-100.0) fL Sodium (137-145) mmol/L Chloride (98-107) mmol/L Carbon Dioxide (22-30) mmol/L BUN (9-20) mg/dL Glucose (74-99) mg/dL POC Glucose (mg/dL) 117 H (70-110) mg/dL Microbiology - Last 24 Hours (Table) 01/22/22 15:20 Blood Culture - Final Blood No Growth after 144 hours 01/22/22 15:42 Blood Culture - Final Blood No Growth after 144 hours Assessment and Plan Assessment: Acute on Chronic CHF exacerbation. Preserved EF. Ejection fraction 50-55% Hypervolemic hyponatremia. Improving. Klebsiella species in the sputum culture. Possible contaminant. level is also low. 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 Pro-calcitonin level is low and Klebsiella possibly contaminant in the sputum sample. Patient was continued on IV Lasix. Changed to Lasix 20 mg by mouth twice a day Continue with methimazole. Patient is also on propranolol at home. Cardiology, nephrology and pulmonary is on board. Discontinue propranolol and continue with him amiodarone per cardiology recommendations. Labs and medication were reviewed. Monitor lytes and vitals. DVT prophylaxis: eliquis GI Prophylaxis: Pepcid Prognosis is guarded Anticipate discharged to rehab. Time with Patient: Greater than 30
--- NOTE | 2022-02-01 00:27 | P.PN ---
Subjective Progress Note Date: 01/30/22 This is a pleasant 81 years old male with past medical history of CVA/TIA, GERD/Reflux, Hyperlipidemia, Hypertension, shingles few yrs ago-still w/residual leg pain, tremors, hx. prostate cancer 2004 w/radiation tx., h/o Coronary Bypass/CABG, , valve repair, history of atrial fibrillation Patient sent by his PCP Dr. Paul for low sodium of 121 patient is awake alert and follows commands but is poor historian. He denies dyspnea but is lying in bed most of the time, no leg edema however he has bilateral basilar crepitations on some dependent trunk edema. No chest pain or abdominal pain. No rash or redness of the skin. Patient has trach collar with 5 L/m of oxygen. He has PEG tube and external urine catheter Patient blood pressure on low normal side 87/55, he is on 5 L/m off trach collar. Slightly tachypneic about 19 breast permanent and afebrile. WBC 11.1, hemoglobin 10.7. Sodium 120 and 119. His BMP is unremarkable. Elevated troponin 0.07 and 0.06 and 0.07. Elevated proBNP 140 900. Urine analysis is negative. Stewart virus is not detected. EKG showing atrial flutter with a rate of 120. Chest x-ray: Extensive calcified pleural plaque. There is evidence of congestive heart failure with pulmonary edema which is mostly new compared to yesterday small pleural effusions are unchanged 01/24/2022 Patient improving slowly and gradually. No shortness of breath while at rest. He is breathing quietly. His sodium is also improving up to 128, and is kept on IV Lasix 20 mg twice daily. Augmentin Kumpe discontinue it. The procalcitonin is negative. Also patient has evidence of hyperthyroidism with T4 is 5.8 and low TSH 0.2. Patient is a started on methimazole. 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 Patient continued on a liquid 5 mg for his chronic atrial fibrillation He is getting tube feeds at 30 mL/h He has Araiza catheter with clear urine 01/25/2022 Patient is currently lying in bed comfortably. Awake alert and oriented but lethargic. On 40% FiO2 by trach collar. Sodium level improved to 130 today. Patient is tolerating PEG tube feeding. Araiza catheter in place. Patient is being continued on Lasix 20 mg IV twice a day. Anticoagulation with eliquis and also on amiodarone. Laboratory data showed sodium 1:30 potassium 3.9 chloride 86 bicarb is 38 BUN 34 and creatinine 0.97 and blood sugar is 144 01/26/2022 Patient is currently lying in the bed. Awake alert but seems to be confused and lethargic today. No complaints of chest pain or worsening shortness of breath. Patient has generalized weakness. Patient is tolerating PEG tube feeding. Sputum culture showing Klebsiella and Achromobacter Chest x-ray showed the demonstrated bilateral calcified pleural plaques suggesting prior asbestos exposure similar mild cardiomegaly mild interstitial and patchy opacities that may reflect CHF with vascular congestion and mild patchy pulmonary edema. Laboratory data showed WBCs 8.2 hemoglobin 10.8 and platelets 340 BUN 36 and creatinine 0.94 sodium 132 potassium 3.8 chloride 86 and blood sugar 144. Pulmonary is on board. 01/27/2022 Patient is currently lying in the bed. Seems to be more awake and alert and oriented. No complaints of chest pain or worsening shortness of breath. CT chest showed extensive calcified pleural plaque. Cardiomegaly. Abdomen is. 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 Calcified plate and pleural fluid increases compared to abdominal computed tomography scan on 08/27/2011. Small pleural effusion at the lung bases and mild basilar pulmonary infiltrates. Patient is being continued on Lasix 20 mg twice a day. Afebrile. No nausea vomiting or diarrhea. Patient is on oxygen by trach collar. Laboratory data showed WBC 10.4 hemoglobin 10.4 and platelets 295 Sodium 133 potassium 4.0 chloride 88 bicarb is 39 BUN 13 and creatinine 0.96 and blood sugar is 136. Pro-Level Is 0.05 01/28/2022 Patient is currently resting in bed. Awake and able to open his eyes and is able to communicate. Patient is otherwise having generalized weakness. Dementia oxygen via trach collar. Tolerating tube feeding. Heart rate did improve after adding metoprolol. Laboratory reviewed. Procalcitonin level is 0.05. Patient is being currently Lasix 20 mg twice daily. Discussed with his at bedside in detail. 01/29/2022 Patient is currently resting in bed. Awake alert and oriented. Tries to communicate. Currently on oxygen via trach collar on room air. Afebrile. No nausea vomiting or diarrhea. Tolerating PEG tube feeding. Patient was seen by PM&R and not a candidate for inpatient rehab. Patient is awaiting for subacute rehab. Laboratory data showed WBC 8.0 hemoglobin 10.4 and platelets 278 Sodium 134 potassium 4.0 chloride 90 bicarb is 37 BUN 44 and creatinine 0.96 and blood sugar is 133. Pulmonary and nephrology is on board. 01/30/2022 Patient currently resting in bed. Awake alert and oriented. On trach collar and saturating well on room air. Patient does have chronic asbestosis and COPD. Tolerating tube feeding. Afebrile. No nausea vomiting. Patient is still having secretions from the throat but history is being suctioned. No evidence of infection. Laboratory showed WBC 8.7 hemoglobin 10.1 and platelets 233 Sodium 133 potassium 4.0 chloride 91 bicarb is 36 BUN 43 and creatinine 0.9 and calcium 8.2. Patient is being continued on anticoagulation with Eliquis and amiodarone and metoprolol and Lasix 20 mg twice daily. Current medications reviewed. Objective - Vital Signs Vital signs: Vital Signs Temp 98.7 F 01/30/22 12:00 Pulse 68 01/30/22 12:00 Resp 22 01/30/22 12:00 BP 102/62 01/30/22 12:00 Pulse Ox 97 01/30/22 12:00 FiO2 28 01/30/22 12:00 Intake & Output 01/29/22 01/30/22 01/30/22 18:59 06:59 18:59 Intake Total 728 518 Balance 728 518 Intake: Oral 118 118 Tube Feeding 610 400 Other: Voiding Method External Catheter External Catheter External Catheter # Bowel Movements 1 - Exam - Exam GENERAL: The patient is alert and oriented x3, not in any acute distress. Well developed, well nourished. -HEENT: Pupils are round and equally reacting to light. EOMI. No scleral icterus. No conjunctival pallor. Normocephalic, atraumatic. No pharyngeal erythema. No thyromegaly. Trach collar in place CARDIOVASCULAR: S1 and S2 present. No murmurs, rubs, or gallops. PULMONARY: Chest is clear to auscultation, no wheezing or crackles. -ABDOMEN: Soft, nontender, nondistended, normoactive bowel sounds. No palpable organomegaly. PEG tube and a Place MUSCULOSKELETAL: No joint swelling or deformity. EXTREMITIES: No cyanosis, clubbing, or pedal edema. NEUROLOGICAL: Gross neurological examination did not reveal any focal deficits. SKIN: No rashes. no petechiae. - Labs CBC & Chem 7: 01/30/22 10:09 01/30/22 10:09 Labs: Abnormal Lab Results - Last 24 Hours (Table) 01/29/22 01/29/22 01/30/22 Range/Units 16:45 20:17 06:06 RBC (4.30-5.90) m/uL Hgb (13.0-17.5) gm/dL Hct (39.0-53.0) % MCV (80.0-100.0) fL Sodium (137-145) mmol/L Chloride (98-107) mmol/L Carbon Dioxide (22-30) mmol/L BUN (9-20) mg/dL Glucose (74-99) mg/dL POC Glucose (mg/dL) 135 H 117 H 128 H (70-110) mg/dL Calcium (8.4-10.2) mg/dL 01/30/22 01/30/22 01/30/22 Range/Units 10:09 10:09 11:42 RBC 3.09 L (4.30-5.90) m/uL Hgb 10.1 L (13.0-17.5) gm/dL Hct 31.0 L (39.0-53.0) % MCV 100.4 H (80.0-100.0) fL Sodium 133 L (137-145) mmol/L Chloride 91 L (98-107) mmol/L Carbon Dioxide 36 H (22-30) mmol/L BUN 43 H (9-20) mg/dL Glucose 126 H (74-99) mg/dL POC Glucose (mg/dL) 133 H (70-110) mg/dL Calcium 8.2 L (8.4-10.2) mg/dL Assessment and Plan Assessment: Acute on Chronic CHF exacerbation. Preserved EF. Ejection fraction 50-55% Hypervolemic hyponatremia. Improving. Klebsiella species in the sputum culture. Possible contaminant. level is also low. 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 Pro-calcitonin level is low and Klebsiella possibly contaminant in the sputum sample. Patient was continued on IV Lasix. Changed to Lasix 20 mg by mouth twice a day Continue with methimazole. Patient is also on propranolol at home. Cardiology, nephrology and pulmonary is on board. Discontinue propranolol and continue with him amiodarone per cardiology recommendations. Labs and medication were reviewed. Monitor lytes and vitals. DVT prophylaxis: eliquis GI Prophylaxis: Pepcid Prognosis is guarded Anticipate discharged to rehab. Time with Patient: Greater than 30
--- NOTE | 2022-02-01 00:30 | P.PN ---
Subjective Progress Note Date: 01/31/22 This is a pleasant 81 years old male with past medical history of CVA/TIA, GERD/Reflux, Hyperlipidemia, Hypertension, shingles few yrs ago-still w/residual leg pain, tremors, hx. prostate cancer 2004 w/radiation tx., h/o Coronary Bypass/CABG, , valve repair, history of atrial fibrillation Patient sent by his PCP Dr. Pual for low sodium of 121 patient is awake alert and follows commands but is poor historian. He denies dyspnea but is lying in bed most of the time, no leg edema however he has bilateral basilar crepitations on some dependent trunk edema. No chest pain or abdominal pain. No rash or redness of the skin. Patient has trach collar with 5 L/m of oxygen. He has PEG tube and external urine catheter Patient blood pressure on low normal side 87/55, he is on 5 L/m off trach collar. Slightly tachypneic about 19 breast permanent and afebrile. WBC 11.1, hemoglobin 10.7. Sodium 120 and 119. His BMP is unremarkable. Elevated troponin 0.07 and 0.06 and 0.07. Elevated proBNP 140 900. Urine analysis is negative. Stewart virus is not detected. EKG showing atrial flutter with a rate of 120. Chest x-ray: Extensive calcified pleural plaque. There is evidence of congestive heart failure with pulmonary edema which is mostly new compared to yesterday small pleural effusions are unchanged 01/24/2022 Patient improving slowly and gradually. No shortness of breath while at rest. He is breathing quietly. His sodium is also improving up to 128, and is kept on IV Lasix 20 mg twice daily. Augmentin Kumpe discontinue it. The procalcitonin is negative. Also patient has evidence of hyperthyroidism with T4 is 5.8 and low TSH 0.2. Patient is a started on methimazole. 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 Patient continued on a liquid 5 mg for his chronic atrial fibrillation He is getting tube feeds at 30 mL/h He has Araiza catheter with clear urine 01/25/2022 Patient is currently lying in bed comfortably. Awake alert and oriented but lethargic. On 40% FiO2 by trach collar. Sodium level improved to 130 today. Patient is tolerating PEG tube feeding. Araiza catheter in place. Patient is being continued on Lasix 20 mg IV twice a day. Anticoagulation with eliquis and also on amiodarone. Laboratory data showed sodium 1:30 potassium 3.9 chloride 86 bicarb is 38 BUN 34 and creatinine 0.97 and blood sugar is 144 01/26/2022 Patient is currently lying in the bed. Awake alert but seems to be confused and lethargic today. No complaints of chest pain or worsening shortness of breath. Patient has generalized weakness. Patient is tolerating PEG tube feeding. Sputum culture showing Klebsiella and Achromobacter Chest x-ray showed the demonstrated bilateral calcified pleural plaques suggesting prior asbestos exposure similar mild cardiomegaly mild interstitial and patchy opacities that may reflect CHF with vascular congestion and mild patchy pulmonary edema. Laboratory data showed WBCs 8.2 hemoglobin 10.8 and platelets 340 BUN 36 and creatinine 0.94 sodium 132 potassium 3.8 chloride 86 and blood sugar 144. Pulmonary is on board. 01/27/2022 Patient is currently lying in the bed. Seems to be more awake and alert and oriented. No complaints of chest pain or worsening shortness of breath. CT chest showed extensive calcified pleural plaque. Cardiomegaly. Abdomen is. 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 Calcified plate and pleural fluid increases compared to abdominal computed tomography scan on 08/27/2011. Small pleural effusion at the lung bases and mild basilar pulmonary infiltrates. Patient is being continued on Lasix 20 mg twice a day. Afebrile. No nausea vomiting or diarrhea. Patient is on oxygen by trach collar. Laboratory data showed WBC 10.4 hemoglobin 10.4 and platelets 295 Sodium 133 potassium 4.0 chloride 88 bicarb is 39 BUN 13 and creatinine 0.96 and blood sugar is 136. Pro-Level Is 0.05 01/28/2022 Patient is currently resting in bed. Awake and able to open his eyes and is able to communicate. Patient is otherwise having generalized weakness. Dementia oxygen via trach collar. Tolerating tube feeding. Heart rate did improve after adding metoprolol. Laboratory reviewed. Procalcitonin level is 0.05. Patient is being currently Lasix 20 mg twice daily. Discussed with his at bedside in detail. 01/29/2022 Patient is currently resting in bed. Awake alert and oriented. Tries to communicate. Currently on oxygen via trach collar on room air. Afebrile. No nausea vomiting or diarrhea. Tolerating PEG tube feeding. Patient was seen by PM&R and not a candidate for inpatient rehab. Patient is awaiting for subacute rehab. Laboratory data showed WBC 8.0 hemoglobin 10.4 and platelets 278 Sodium 134 potassium 4.0 chloride 90 bicarb is 37 BUN 44 and creatinine 0.96 and blood sugar is 133. Pulmonary and nephrology is on board. 01/30/2022 Patient currently resting in bed. Awake alert and oriented. On trach collar and saturating well on room air. Patient does have chronic asbestosis and COPD. Tolerating tube feeding. Afebrile. No nausea vomiting. Patient is still having secretions from the throat but history is being suctioned. No evidence of infection. Laboratory showed WBC 8.7 hemoglobin 10.1 and platelets 233 Sodium 133 potassium 4.0 chloride 91 bicarb is 36 BUN 43 and creatinine 0.9 and calcium 8.2. Patient is being continued on anticoagulation with Eliquis and amiodarone and metoprolol and Lasix 20 mg twice daily. 01/31/2022 Patient is currently resting in the bed. Awake alert and oriented x3. No complaints of chest pain. Breathing status is stable. Afebrile. No nausea or vomiting. Tolerating tube feeding. Patient is being PT OT and possible discharge to rehab. patient is having tracheal secretions which are being suctioned. No complaints of abdominal pain. Anticipate discharge to rehab in the next 24 hours. Current medications reviewed. Objective - Vital Signs Vital signs: Vital Signs Temp 97.6 F 01/31/22 15:28 Pulse 84 01/31/22 15:28 Resp 22 01/31/22 15:28 BP 94/52 01/31/22 15:28 Pulse Ox 95 01/31/22 15:28 FiO2 28 01/31/22 13:06 Intake & Output 01/30/22 01/31/22 01/31/22 18:59 06:59 18:59 Intake Total 808 730 Output Total 150 Balance 808 -150 730 Weight 66 kg Intake: IV 10 Invasive Line 1 10 Oral 208 Tube Feeding 600 720 Output: Urine 150 Other: Voiding Method External Catheter External Catheter External Catheter # Bowel Movements 3 - Exam - Exam GENERAL: The patient is alert and oriented x3, not in any acute distress. Well developed, well nourished. -HEENT: Pupils are round and equally reacting to light. EOMI. No scleral icterus. No conjunctival pallor. Normocephalic, atraumatic. No pharyngeal erythema. No thyromegaly. Trach collar in place CARDIOVASCULAR: S1 and S2 present. No murmurs, rubs, or gallops. PULMONARY: Chest is clear to auscultation, no wheezing or crackles. -ABDOMEN: Soft, nontender, nondistended, normoactive bowel sounds. No palpable organomegaly. PEG tube and a Place MUSCULOSKELETAL: No joint swelling or deformity. EXTREMITIES: No cyanosis, clubbing, or pedal edema. NEUROLOGICAL: Gross neurological examination did not reveal any focal deficits. SKIN: No rashes. no petechiae. - Labs CBC & Chem 7: 01/30/22 10:09 01/30/22 10:09 Labs: Abnormal Lab Results - Last 24 Hours (Table) 01/30/22 01/30/22 01/31/22 Range/Units 16:59 19:37 05:58 POC Glucose (mg/dL) 141 H 128 H 157 H (70-110) mg/dL 01/31/22 Range/Units 11:20 POC Glucose (mg/dL) 132 H (70-110) mg/dL Assessment and Plan Assessment: Acute on Chronic CHF exacerbation. Preserved EF. Ejection fraction 50-55% Hypervolemic hyponatremia. Improving. Klebsiella species in the sputum culture. Possible contaminant. level is also low. 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 Pro-calcitonin level is low and Klebsiella possibly contaminant in the sputum sample. Patient was continued on IV Lasix. Changed to Lasix 20 mg by mouth twice a day Continue with methimazole. Patient is also on propranolol at home. Cardiology, nephrology and pulmonary is on board. Discontinue propranolol and continue with him amiodarone per cardiology recommendations. Labs and medication were reviewed. Monitor lytes and vitals. DVT prophylaxis: eliquis GI Prophylaxis: Pepcid Prognosis is guarded Anticipate discharged to rehab. Time with Patient: Greater than 30
[2022-02-01 06:07] LABS: Glucose,Whole Blood 136 mg/dL (70-110)
[2022-02-01] MEDS: PANTOPRAZOLE 40 MG TABLET PO SCH (06:38)
[2022-02-01] MEDS: CHOLESTYRAMINE (WITH SUGAR) 4 GM PACKET PO SCH ×2 (10:25→18:08)
[2022-02-01] MEDS: methIMAzole 5 MG TAB PO SCH ×3 (10:25→20:13)
[2022-02-01] MEDS: METOPROLOL TARTRATE 25 MG TAB PO SCH ×2 (10:25→20:14)
[2022-02-01] MEDS: APIXABAN 5 MG TAB PEG/G-TUBE SCH ×2 (10:26→20:14)
[2022-02-01] MEDS: PREGABALIN 75 MG CAP PO SCH ×2 (10:26→20:14)
[2022-02-01] MEDS: AMIODARONE 200 MG TAB PEG/G-TUBE SCH (10:26)
[2022-02-01] MEDS: TIMOLOL 0.5% OPHTH DROPS 5 ML BTL BOTH EYES SCH (10:26)
[2022-02-01] MEDS: PRIMIDONE 50 MG TAB PEG/G-TUBE SCH ×2 (10:26→20:14)
[2022-02-01] MEDS: LATANOPROST 0.005% OPHTH DROPS 2.5 ML BTL BOTH EYES SCH (10:26)
[2022-02-01] MEDS: FUROSEMIDE 20 MG TAB PO SCH ×2 (10:26→16:08)
[2022-02-01 10:39] LABS: Calcium 8.2 mg/dL (8.4-10.2); Potassium 4.3 mmol/L (3.5-5.1)
[2022-02-01 10:55] LABS: Basophils % (A) 0 %; Eosinophils # (A) 0.3 k/uL (0-0.7); Eosinophils % (A) 3 %; HCT 30.7 % (39.0-53.0); HGB 10.2 gm/dL (13.0-17.5); Hypochromasia Slight; Lymphocytes # (A) 1.3 k/uL (1.0-4.8); Lymphocytes % (A) 17 %; MCH 33.7 pg (25.0-35.0); MCHC 33.4 g/dL (31.0-37.0); MCV 100.9 fL (80.0-100.0); Macrocytosis Slight; Mean Platelet Volume 8.8; Monocytes # (A) 0.6 k/uL (0-1.0); Monocytes % (A) 8 %; Neutrophils # (A) 5.3 k/uL (1.3-7.7); Neutrophils % (A) 68 %; Platelet Count 261 k/uL (150-450); RBC 3.04 m/uL (4.30-5.90); RDW 14.2 % (11.5-15.5); WBC 7.8 k/uL (3.8-10.6)
[2022-02-01 11:50] LABS: Glucose,Whole Blood 158 mg/dL (70-110)
--- NOTE | 2022-02-01 13:05 | P.PN ---
Subjective Patient is seen for follow-up for hyponatremia. Sodium was up to 135 today. Currently maintained on Lasix 20 mg by mouth twice a day. No significant complaints today. Objective - Vital Signs Vital signs: Vital Signs Temp 98.1 F 02/01/22 12:38 Pulse 67 02/01/22 12:38 Resp 19 02/01/22 12:38 BP 111/62 02/01/22 12:38 Pulse Ox 92 L 02/01/22 12:38 FiO2 28 02/01/22 12:38 Intake & Output 01/31/22 02/01/22 02/01/22 18:59 06:59 18:59 Intake Total 980 450 400 Balance 980 450 400 Weight 67 kg Intake: IV 10 Invasive Line 1 10 Oral 250 Tube Feeding 720 450 400 Other: Voiding Method External Catheter External Catheter External Catheter # Bowel Movements 3 - Exam Awake, comfortable, not in any acute distress Examination of the heart S1 and S2 Examination of the lungs bilateral breath sounds are heard Abdomen is soft nontender Examination lower extremities shows no significant edema - Labs CBC & Chem 7: 02/01/22 09:36 02/01/22 09:36 Labs: Abnormal Lab Results - Last 24 Hours (Table) 01/31/22 01/31/22 02/01/22 Range/Units 16:33 20:33 06:05 RBC (4.30-5.90) m/uL Hgb (13.0-17.5) gm/dL Hct (39.0-53.0) % MCV (80.0-100.0) fL Sodium (137-145) mmol/L Chloride (98-107) mmol/L Carbon Dioxide (22-30) mmol/L BUN (9-20) mg/dL Glucose (74-99) mg/dL POC Glucose (mg/dL) 130 H 143 H 136 H (70-110) mg/dL Calcium (8.4-10.2) mg/dL 02/01/22 02/01/22 02/01/22 Range/Units 09:36 09:36 11:48 RBC 3.04 L (4.30-5.90) m/uL Hgb 10.2 L (13.0-17.5) gm/dL Hct 30.7 L (39.0-53.0) % MCV 100.9 H (80.0-100.0) fL Sodium 135 L (137-145) mmol/L Chloride 92 L (98-107) mmol/L Carbon Dioxide 36 H (22-30) mmol/L BUN 46 H (9-20) mg/dL Glucose 106 H (74-99) mg/dL POC Glucose (mg/dL) 158 H (70-110) mg/dL Calcium 8.2 L (8.4-10.2) mg/dL Assessment and Plan Assessment: 1. Hyponatremia. Better. Was hypervolemic, now euvolemic. Underlying SIADH from malignancy. Urine sodium 68, urine osmolality 217. Cortisol not low. TSH low. 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 Vocal cord paralysis. 4. Status post PEG tube placement. 5. Acute on chronic diastolic CHF with moderate aortic stenosis, moderate aortic regurgitation and moderate pulmonary hypertension. Plan: Continue with oral Lasix Monitor sodium periodically
[2022-02-01 13:52] VITALS: BMI 25.3
--- NOTE | 2022-02-01 15:47 | P.PN ---
Subjective Progress Note Date: 02/01/22 Principal diagnosis: Acute diastolic congestive heart failure 01/27/2022, I'm seeing the patient for a follow-up. He seems to much more awake compared to yesterday. He is easily arousable. The has noted that the patient's level of alertness is also improved. I was concerned about that as the patient was quite lethargic even after having his sodium level adjusted. Based on that, a CAT scan of the brain was done and it showed chronic stroke without any acute abnormalities. Specifically, CAT scan of the brain showed old bilateral occipital infarct and an old left posterior temporal infarct and chronic small vessel ischemic changes. As for the CAT scan of the chest, this was essentially related to asbestos exposure and the patient is known case of asbestosis. He remains on Levaquin. He has Klebsiella in his sputum which is probably a colonizer. His pro calcitonin level is low. He is receiving enteral feeding for nutritional support. Is also taken some pleasure feeds.The blood work from today shows a white cell count of 10.4 with a hemoglobin of 10.4 and a BUN of 39 with a creatinine of 0.96 and the sodium level is up to 133. The potassium levels at 4.0. 01/28/2022, the patient is awake and arousable. He is communicating. He is however week. He remains on 28% trach collar and a pulse ox is 94%. Is afebrile for now. No significant respiratory secretions. Tolerating his enteral feeding for nutritional support. He also takes some pleasure feeds. No nausea. No emesis. His electronics improved and his sodium level was up to 133 yesterday and this has resulted also improvement in his overall level of alertness. 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 His chest x-ray is consistent with asbestosis. No other new changes noted. Continues to receive enteral feeding for nutritional support via PEG tube. 01/29 2022, the patient remained quite weak. He was seen by rehabilitation services and he was not found to be a good candidate for inpatient rehabilitation. The patient accordingly is going to be [facility] facility. Electrolytes are all stable. White cell positives with a hemoglobin of 10.4. Urine is a 44 with a creatinine of 0.5. Remain on the same medication. Antibiotic course has been completed. Afebrile, remains on a 28% trach collar. Continues to receive enteral feeding for nutritional support via PEG tube. 01/30/2022, the patient is clinically stable. He is having some loose liquidy respiratory secretions which are being suctioned out. He has a tracheostomy tube in place. He also has chronic asbestosis and COPD. Continues to be significant feeding for nutritional support. No aspiration. The white cell count was 8.7 with a hemoglobin of 10, sodium is 133 BUN is at 43 with a creatinine of 0.9. No emesis. He is still profoundly weak. Plan 62,022, noting the patient's condition. Resting comfortably in bed. Remain on oral Lasix. Remains on enteral feeding for nutritional support. He will need mcc placement. Remains profoundly weak. Reevaluated today on 02/01/22, patient seems to be comfortable, not in distress, patient is being considered for placement, however the patient was not seen by oncology on outpatient basis mostly because of his present illness, and apparently his ENT physician recommended chemotherapy, no radiation therapy was recommended by Dr. Prabhu Foster. Patient has not been seen by oncology and if no chemotherapy to be given, or if prognosis is poor as per oncology, patient had are seriously considering hospice. Patient remains profoundly weak, and he looks like he may need mcc placement. CBC is relatively normal index was are normal potassium and sodium are back to normal last chest x-ray fr om 01/28, showed improvement in his CHF, nonetheless continues to have significant asbestos pleural plaques bilaterally. Objective - Vital Signs Vital signs: Vital Signs Temp 98.1 F 02/01/22 12:38 Pulse 67 02/01/22 12:38 Resp 19 02/01/22 12:38 BP 111/62 02/01/22 12:38 Pulse Ox 92 L 02/01/22 12:38 FiO2 28 02/01/22 12:38 Intake & Output 01/31/22 02/01/22 02/01/22 18:59 06:59 18:59 Intake Total 980 450 400 Balance 980 450 400 Weight 67 kg 67 kg Intake: IV 10 Invasive Line 1 10 Oral 250 Tube Feeding 720 450 400 Other: Voiding Method External Catheter External Catheter External Catheter # Bowel Movements 3 - Exam Physical Exam: Revealed a 81-year-old white male nonverbal, tracheostomy in place. Intact. Head: Atraumatic, normocephalic. HEENT:[Neck is supple.] [No neck masses.] [No thyromegaly.] [No JVD.] Tracheostomy is intact. Chest: [Minimal fine crackles at the bases no rhonchi and no wheezes Cardiac Exam: [Normal S1 and S2, no S3 gallop, no murmur.] Abdomen: [Soft, nontender, no megaly, no rebound, no guarding, normal bowel sounds.] PEG tube is intact. Extremities: [No clubbing, no edema, no cyanosis.] Neurological Exam: [No focal neurologic deficit.] Creatinine: Normal mood affect and normal mental status examination. Skin: No rashes. - Labs CBC & Chem 7: 02/01/22 09:36 02/01/22 09:36 Labs: Abnormal Lab Results - Last 24 Hours (Table) 01/31/22 01/31/22 02/01/22 Range/Units 16:33 20:33 06:05 RBC (4.30-5.90) m/uL Hgb (13.0-17.5) gm/dL Hct (39.0-53.0) % MCV (80.0-100.0) fL Sodium (137-145) mmol/L Chloride (98-107) mmol/L Carbon Dioxide (22-30) mmol/L BUN (9-20) mg/dL Glucose (74-99) mg/dL POC Glucose (mg/dL) 130 H 143 H 136 H (70-110) mg/dL Calcium (8.4-10.2) mg/dL 02/01/22 02/01/22 02/01/22 Range/Units 09:36 09:36 11:48 RBC 3.04 L (4.30-5.90) m/uL Hgb 10.2 L (13.0-17.5) gm/dL Hct 30.7 L (39.0-53.0) % MCV 100.9 H (80.0-100.0) fL Sodium 135 L (137-145) mmol/L Chloride 92 L (98-107) mmol/L Carbon Dioxide 36 H (22-30) mmol/L BUN 46 H (9-20) mg/dL Glucose 106 H (74-99) mg/dL POC Glucose (mg/dL) 158 H (70-110) mg/dL Calcium 8.2 L (8.4-10.2) mg/dL Assessment and Plan Assessment: Impression: Acute pulmonary edema, acute diastolic congestive heart failure Acute hypovolemic hyponatremia Acute Klebsiella and Enterobacter tracheobronchitis possible colonization. Pro- calcitonin has been low. History of throat cancer status post tracheostomy Asbestos associated lung disease Vocal cord paralysis History of CVA Dyslipidemia Benign essential hypertension History of prostate cancer and previous radiation treatment in 2004 Coronary artery disease and previous CABG History of depression Recommendation: Continue present supportive care measures We'll consult oncology to evaluate for possible chemotherapy down the line. And if prognosis is felt to be very poor as per oncology patient and are willing to consider hospice Continue enteral feeding via PEG tube Continue to monitor electrolytes MCC placement is reasonable, Patient and are both willing to consider hospice if prognosis is felt to be very poor Time with Patient: Less than 30
[2022-02-01 16:50] LABS: Glucose,Whole Blood 131 mg/dL (70-110)
[2022-02-01] MEDS: ATORVASTATIN 80 MG TAB PEG/G-TUBE SCH (20:14)
[2022-02-01] MEDS: TAMSULOSIN 0.4 MG CAP.ER.24H PO SCH (20:14)
[2022-02-01 20:22] LABS: Glucose,Whole Blood 118 mg/dL (70-110)
[2022-02-01] MEDS: LIDOCAINE 5% PATCH TOPICAL SCH (22:55)
--- NOTE | 2022-02-02 02:10 | P.PN ---
Subjective Progress Note Date: 02/01/22 This is a pleasant 81 years old male with past medical history of CVA/TIA, GERD/Reflux, Hyperlipidemia, Hypertension, shingles few yrs ago-still w/residual leg pain, tremors, hx. prostate cancer 2004 w/radiation tx., h/o Coronary Bypass/CABG, , valve repair, history of atrial fibrillation Patient sent by his PCP Dr. Paul for low sodium of 121 patient is awake alert and follows commands but is poor historian. He denies dyspnea but is lying in bed most of the time, no leg edema however he has bilateral basilar crepitations on some dependent trunk edema. No chest pain or abdominal pain. No rash or redness of the skin. Patient has trach collar with 5 L/m of oxygen. He has PEG tube and external urine catheter Patient blood pressure on low normal side 87/55, he is on 5 L/m off trach collar. Slightly tachypneic about 19 breast permanent and afebrile. WBC 11.1, hemoglobin 10.7. Sodium 120 and 119. His BMP is unremarkable. Elevated troponin 0.07 and 0.06 and 0.07. Elevated proBNP 140 900. Urine analysis is negative. Stewart virus is not detected. EKG showing atrial flutter with a rate of 120. Chest x-ray: Extensive calcified pleural plaque. There is evidence of congestive heart failure with pulmonary edema which is mostly new compared to yesterday small pleural effusions are unchanged 01/24/2022 Patient improving slowly and gradually. No shortness of breath while at rest. He is breathing quietly. His sodium is also improving up to 128, and is kept on IV Lasix 20 mg twice daily. Augmentin Kumpe discontinue it. The procalcitonin is negative. Also patient has evidence of hyperthyroidism with T4 is 5.8 and low TSH 0.2. Patient is a started on methimazole. 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 Patient continued on a liquid 5 mg for his chronic atrial fibrillation He is getting tube feeds at 30 mL/h He has Araiza catheter with clear urine 01/25/2022 Patient is currently lying in bed comfortably. Awake alert and oriented but lethargic. On 40% FiO2 by trach collar. Sodium level improved to 130 today. Patient is tolerating PEG tube feeding. Araiza catheter in place. Patient is being continued on Lasix 20 mg IV twice a day. Anticoagulation with eliquis and also on amiodarone. Laboratory data showed sodium 1:30 potassium 3.9 chloride 86 bicarb is 38 BUN 34 and creatinine 0.97 and blood sugar is 144 01/26/2022 Patient is currently lying in the bed. Awake alert but seems to be confused and lethargic today. No complaints of chest pain or worsening shortness of breath. Patient has generalized weakness. Patient is tolerating PEG tube feeding. Sputum culture showing Klebsiella and Achromobacter Chest x-ray showed the demonstrated bilateral calcified pleural plaques suggesting prior asbestos exposure similar mild cardiomegaly mild interstitial and patchy opacities that may reflect CHF with vascular congestion and mild patchy pulmonary edema. Laboratory data showed WBCs 8.2 hemoglobin 10.8 and platelets 340 BUN 36 and creatinine 0.94 sodium 132 potassium 3.8 chloride 86 and blood sugar 144. Pulmonary is on board. 01/27/2022 Patient is currently lying in the bed. Seems to be more awake and alert and oriented. No complaints of chest pain or worsening shortness of breath. CT chest showed extensive calcified pleural plaque. Cardiomegaly. Abdomen is. 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 Calcified plate and pleural fluid increases compared to abdominal computed tomography scan on 08/27/2011. Small pleural effusion at the lung bases and mild basilar pulmonary infiltrates. Patient is being continued on Lasix 20 mg twice a day. Afebrile. No nausea vomiting or diarrhea. Patient is on oxygen by trach collar. Laboratory data showed WBC 10.4 hemoglobin 10.4 and platelets 295 Sodium 133 potassium 4.0 chloride 88 bicarb is 39 BUN 13 and creatinine 0.96 and blood sugar is 136. Pro-Level Is 0.05 01/28/2022 Patient is currently resting in bed. Awake and able to open his eyes and is able to communicate. Patient is otherwise having generalized weakness. Dementia oxygen via trach collar. Tolerating tube feeding. Heart rate did improve after adding metoprolol. Laboratory reviewed. Procalcitonin level is 0.05. Patient is being currently Lasix 20 mg twice daily. Discussed with his at bedside in detail. 01/29/2022 Patient is currently resting in bed. Awake alert and oriented. Tries to communicate. Currently on oxygen via trach collar on room air. Afebrile. No nausea vomiting or diarrhea. Tolerating PEG tube feeding. Patient was seen by PM&R and not a candidate for inpatient rehab. Patient is awaiting for subacute rehab. Laboratory data showed WBC 8.0 hemoglobin 10.4 and platelets 278 Sodium 134 potassium 4.0 chloride 90 bicarb is 37 BUN 44 and creatinine 0.96 and blood sugar is 133. Pulmonary and nephrology is on board. 01/30/2022 Patient currently resting in bed. Awake alert and oriented. On trach collar and saturating well on room air. Patient does have chronic asbestosis and COPD. Tolerating tube feeding. Afebrile. No nausea vomiting. Patient is still having secretions from the throat but history is being suctioned. No evidence of infection. Laboratory showed WBC 8.7 hemoglobin 10.1 and platelets 233 Sodium 133 potassium 4.0 chloride 91 bicarb is 36 BUN 43 and creatinine 0.9 and calcium 8.2. Patient is being continued on anticoagulation with Eliquis and amiodarone and metoprolol and Lasix 20 mg twice daily. 01/31/2022 Patient is currently resting in the bed. Awake alert and oriented x3. No complaints of chest pain. Breathing status is stable. Afebrile. No nausea or vomiting. Tolerating tube feeding. Patient is being PT OT and possible discharge to rehab. patient is having tracheal secretions which are being suctioned. No complaints of abdominal pain. Anticipate discharge to rehab in the next 24 hours. 02/01/2022 Patient is seen and evaluated in follow-up this morning with pulmonary following . Patient is a trach collar and maintained on oxygen along with tube feeds and tolerating. PT/Ot recommend ecf and case management following and working on accepting ecf. Family is agreeable and at the bedside. Afebrile and denies chest pain. No reports of nausea or vomiting. Recommend aspiration precautions. Review of systems: Constitutional: No reports of fatigue, fever, or chills Cardiovascular: No reports of chest pain or palpitations Respiratory: No reports of worsening shortness of breath GI: No reports of nausea, vomiting, or diarrhea : No reports of dysuria or retention Neurovascular: reports of generalized weakness All medications have been reviewed Active Medications Acetaminophen (Acetaminophen Tab 325 Mg Tab) 650 mg PO Q6HR PRN PRN Reason: Fever and/ or Mild Pain Last Admin: 01/31/22 13:18 Dose: 650 mg Hydrocodone Bitart/Acetaminophen (Hydrocodone/Apap 5-325mg 1 Each Tab) 1 each PO Q6HR PRN PRN Reason: Pain Last Admin: 01/31/22 21:42 Dose: 1 each Alprazolam (Alprazolam 0.25 Mg Tab) 0.25 mg PEG/G-TUBE BID PRN PRN Reason: Anxiety Alprazolam (Alprazolam 0.25 Mg Tab) 0.25 mg PEG/G-TUBE HS PRN PRN Reason: Anxiety Amiodarone HCl (Amiodarone 200 Mg Tab) 200 mg PEG/G-TUBE DAILY [facility] Last Admin: 02/01/22 10:26 Dose: 200 mg Apixaban (Apixaban 5 Mg Tab) 5 mg PEG/G-TUBE BID [facility]; Protocol Last Admin: 02/01/22 10:26 Dose: 5 mg Atorvastatin Calcium (Atorvastatin 80 Mg Tab) 80 mg PEG/G-TUBE HS [facility] Last Admin: 01/31/22 21:42 Dose: 80 mg Cholestyramine Resin (Cholestyramine (With Sugar) 4 Gm Packet) 4 gm PO BID@1000 ,1800 [facility] Last Admin: 02/01/22 10:25 Dose: 4 gm Furosemide (Furosemide 20 Mg Tab) 20 mg PO BID@0900,1600 [facility] Last Admin: 02/01/22 16:08 Dose: 20 mg Latanoprost (Latanoprost 0.005% Ophth Drops 2.5 Ml Btl) 1 drops BOTH EYES DAILY [facility] Last Admin: 02/01/22 10:26 Dose: 1 drops Methimazole (Methimazole 5 Mg Tab) 5 mg PO TID [facility] Last Admin: 02/01/22 16:09 Dose: 5 mg Metoprolol Tartrate (Metoprolol Tartrate 25 Mg Tab) 25 mg PO BID [facility] Last Admin: 02/01/22 10:25 Dose: 25 mg Naloxone HCl (Naloxone 0.4 Mg/Ml 1 Ml Vial) 0.2 mg IV Q2M PRN PRN Reason: Opioid Reversal Pantoprazole Sodium (Pantoprazole 40 Mg Tablet) 40 mg PO [id number] [facility] Last Admin: 02/01/22 06:38 Dose: 40 mg Pregabalin (Pregabalin 75 Mg Cap) 75 mg PO BID [facility] Last Admin: 02/01/22 10:26 Dose: 75 mg Primidone (Primidone 50 Mg Tab) 50 mg PEG/G-TUBE DAILY [facility] Last Admin: 02/01/22 10:26 Dose: 50 mg Primidone (Primidone 50 Mg Tab) 100 mg PEG/G-TUBE HS [facility] Last Admin: 01/31/22 21:42 Dose: 100 mg Tamsulosin HCl (Tamsulosin 0.4 Mg Cap.Er.24h) 0.4 mg PO HS [facility] Last Admin: 01/31/22 21:42 Dose: 0.4 mg Timolol Maleate (Timolol 0.5% Ophth Drops 5 Ml Btl) 1 drops BOTH EYES DAILY [facility] Last Admin: 02/01/22 10:26 Dose: 1 drops Physical exam: GENERAL: The patient is alert and oriented x3, sitting up in the chair. Well developed, well nourished. HEENT: Pupils are round and equally reacting to light. EOMI. No scleral icterus. No conjunctival pallor. Normocephalic, atraumatic. No pharyngeal erythema. No thyromegaly. Trach collar in place CARDIOVASCULAR: S1 and S2 muffled PULMONARY: diminished breath sounds bilaterally with some scattered rhonchi noted ABDOMEN: Soft, nontender, nondistended, normoactive bowel sounds. No palpable organomegaly. PEG tube and a Place MUSCULOSKELETAL: No joint swelling or deformity. EXTREMITIES: No cyanosis, clubbing, or pedal edema. NEUROLOGICAL: Gross neurological examination did not reveal any focal deficits. SKIN: No rashes. no petechiae. Assessment: Acute on Chronic CHF exacerbation. Preserved EF. Ejection fraction 50-55% Hypervolemic hyponatremia. Improving. Klebsiella species in the sputum culture. Possible contaminant. level is also low. 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 Pro-calcitonin level is low and Klebsiella possibly contaminant in the sputum sample. Patient is continued on oral Lasix 20 mg by mouth twice a day Continue with methimazole. Patient is also on propranolol at home. Cardiology, nephrology and pulmonary is on board. Discontinue propranolol and continue with him amiodarone per cardiology recommendations. Oncology consulted Patient continues with weakness and case management following and working on ECF and accepting facility. Possible bed available Tuesday. Working on other ECF as well. Anticipate discharged to rehab once a bed is available Due to multiple complex medical issues, prognosis is guarded. The impression and plan of care has been dictated by Stacia Hearn, Nurse Practitioner as directed. Dr. Bryan MD I have performed a history and examination and MDM of this patient, discussed the same with the dictator, and agree with the dictator's assessment and plan as written ,documented as a scribe. Based on total visit time, I have performed more than 50% of the visit. Objective - Vital Signs Vital signs: Vital Signs Temp 98.1 F 02/01/22 12:38 Pulse 97 02/01/22 15:38 Resp 19 02/01/22 15:38 BP 105/58 02/01/22 15:38 Pulse Ox 98 02/01/22 15:38 FiO2 28 02/01/22 15:43 Intake & Output 01/31/22 02/01/22 02/01/22 18:59 06:59 18:59 Intake Total 980 450 610 Balance 980 450 610 Weight 67 kg 67 kg Intake: IV 10 10 Invasive Line 1 10 Invasive Line 2 10 Oral 250 Tube Feeding 720 450 600 Other: Voiding Method External Catheter External Catheter External Catheter # Bowel Movements 3 - Labs CBC & Chem 7: 02/01/22 09:36 02/01/22 09:36 Labs: Abnormal Lab Results - Last 24 Hours (Table) 01/31/22 01/31/22 02/01/22 Range/Units 16:33 20:33 06:05 RBC (4.30-5.90) m/uL Hgb (13.0-17.5) gm/dL Hct (39.0-53.0) % MCV (80.0-100.0) fL Sodium (137-145) mmol/L Chloride (98-107) mmol/L Carbon Dioxide (22-30) mmol/L BUN (9-20) mg/dL Glucose (74-99) mg/dL POC Glucose (mg/dL) 130 H 143 H 136 H (70-110) mg/dL Calcium (8.4-10.2) mg/dL 02/01/22 02/01/22 02/01/22 Range/Units 09:36 09:36 11:48 RBC 3.04 L (4.30-5.90) m/uL Hgb 10.2 L (13.0-17.5) gm/dL Hct 30.7 L (39.0-53.0) % MCV 100.9 H (80.0-100.0) fL Sodium 135 L (137-145) mmol/L Chloride 92 L (98-107) mmol/L Carbon Dioxide 36 H (22-30) mmol/L BUN 46 H (9-20) mg/dL Glucose 106 H (74-99) mg/dL POC Glucose (mg/dL) 158 H (70-110) mg/dL Calcium 8.2 L (8.4-10.2) mg/dL
[2022-02-02 06:22] LABS: Glucose,Whole Blood 138 mg/dL (70-110)
[2022-02-02 06:28] VITALS: RESP 19
--- NOTE | 2022-02-02 08:47 | P.CONS ---
History of Present Illness - Reason for Consult Consult date: 02/01/22 laryngeal cancer Requesting physician: Jeannine Wisdom - Chief Complaint hyponatremia - History of Present Illness Mr. 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 He has trach and PEG. Pt had voice changes, whisper, this led to ENT evaluation and ultimately he saw Dr. Hawkins and had biopsy-I do not have those records-path + malignancy. He was seen by Rad Onc-no recommendations for XRT. He is pending being seen by Medical Oncologist. There are plans for pt to go to rehab. Review of Systems Pt alert and can communicate with some mild difficulty Past Medical History Past Medical History: Cancer, CVA/TIA, GERD/Reflux, Hyperlipidemia, Hypertension Additional Past Medical History / Comment(s): shingles few yrs ago-still w/residual leg pain, tremors, hx. prostate cancer 2004 w/radiation tx., short of breath History of Any Multi-Drug Resistant Organisms: ESBL Year Discovered:: 01/22/22 ESBL MDRO Source:: Sputum Past Surgical History: Cholecystectomy, Coronary Bypass/CABG, Hernia Repair, Joint Replacement, Orthopedic Surgery Additional Past Surgical History / Comment(s): valve repair, right knee replaced, right shoulder surg. x 2 Past Anesthesia/Blood Transfusion Reactions: Previous Problems w/ Anesthesia Additional Past Anesthesia/Blood Transfusion Reaction / Comm: confusion after waking from anesthesia, day after cholycystectomy experienced low blood pressure adm to ICU received 2 units of plasma and whole blood Past Psychological History: Depression Smoking Status: Former smoker Past Alcohol Use History: Occasional Past Drug Use History: None Reported - Past Family History Mother Family Medical History: No Reported History Medications and Allergies Home Medications Medication Instructions Recorded Confirmed Type Furosemide [Lasix] 20 mg PEG/G-TUBE DAILY 08/01/15 01/22/22 History Potassium Chloride [Klor-Con 20] 20 meq PEG/G-TUBE DAILY 08/01/15 01/22/22 History Pregabalin [Lyrica] 75 mg PO BID 08/01/15 01/22/22 History Primidone [Mysoline] 100 mg PEG/G-TUBE HS 08/01/15 01/22/22 History Latanoprost Ophth [Xalatan 0.005%] 1 drop BOTH EYES DAILY 03/26/19 01/22/22 History Omeprazole [PriLOSEC] 40 mg PO DAILY 03/26/19 01/22/22 History Atorvastatin [Lipitor] 80 mg PEG/G-TUBE HS 12/08/19 01/22/22 History Timolol 0.5% Ophth Soln [Timoptic 1 drop BOTH EYES DAILY 12/08/19 01/22/22 History 0.5% Ophth Soln] ALPRAZolam [Xanax] 0.25 mg PEG/G-TUBE BID PRN 01/22/22 01/22/22 History ALPRAZolam [Xanax] 0.25 mg PEG/G-TUBE HS 01/22/22 01/22/22 History Amiodarone [Cordarone] 200 mg PEG/G-TUBE DAILY 01/22/22 01/22/22 History Amoxic-Pot Clav 875-125Mg 1 tab PEG/G-TUBE BID 01/22/22 01/22/22 History [Augmentin 875-125] Apixaban [Eliquis] 5 mg PEG/G-TUBE BID 01/22/22 01/22/22 History Primidone [Mysoline] 50 mg PEG/G-TUBE DAILY 01/22/22 01/22/22 History Propranolol [Inderal] 20 mg PEG/G-TUBE BID 01/22/22 01/22/22 History Tamsulosin HCl [Flomax] 0.4 mg PO HS 01/22/22 01/22/22 History predniSONE See Taper PEG/G-TUBE DIRECTED 01/22/22 01/22/22 History Allergies Allergy/AdvReac Type Severity Reaction Status Date / Time No Known Allergies Allergy Verified 01/22/22 15:13 Physical Exam Vitals: Vital Signs Temp Pulse Pulse Resp BP Pulse Ox Pulse Ox 02/01/22 15:43 02/01/22 15:38 97 19 105/58 98 02/01/22 15:32 67 19 02/01/22 12:38 98.1 F 67 19 111/62 92 L 02/01/22 10:40 130 H 92 L 02/01/22 10:19 92 19 02/01/22 10:16 98.2 F 92 19 122/74 93 L 02/01/22 07:56 02/01/22 04:00 98.1 F 91 19 112/67 94 L 02/01/22 02:00 97 19 02/01/22 00:00 97.9 F 97 19 117/65 93 L 01/31/22 20:39 01/31/22 20:00 98.4 F 92 19 113/62 91 L FiO2 02/01/22 15:43 28 02/01/22 15:38 28 02/01/22 15:32 02/01/22 12:38 28 02/01/22 10:40 02/01/22 10:19 02/01/22 10:16 28 02/01/22 07:56 28 02/01/22 04:00 28 02/01/22 02:00 02/01/22 00:00 28 01/31/22 20:39 28 01/31/22 20:00 28 Intake and Output 02/01/22 02/01/22 02/01/22 06:59 14:59 22:59 Intake Total 400 400 210 Balance 400 400 210 Intake: IV 10 Invasive Line 2 10 Tube Feeding 400 400 200 Other: Voiding Method External Catheter External Catheter External Catheter Weight 67 kg 67 kg - Constitutional General appearance: average body habitus, cooperative, no acute distress - EENT Eyes: anicteric sclerae, EOMI ENT: hard of hearing - Neck Neck: no lymphadenopathy - Respiratory Respiratory: bilateral: rhonchi - Cardiovascular RUE swelling Rhythm: regular Heart sounds: normal: S1, S2 Abnormal Heart Sounds: no systolic murmur, no diastolic murmur, no rub, no S3 Gallop, no S4 Gallop, no click, no other leg Peripheral Edema: bilateral: None - Gastrointestinal General gastrointestinal: no absent bowel sounds, no decreased bowel sounds, no distended, no hepatomegaly, no hyperactive bowel sounds, normal bowel sounds, no organomegaly, no rigid, no scaphoid, soft, no splenomegaly, no tenderness, no umbilical hernia, no ventral hernia - Integumentary Integumentary: pale - Neurologic Neurologic: CNII-XII intact (grossly) - Musculoskeletal Musculoskeletal: generalized weakness - Psychiatric Psychiatric: A&O x's 3, appropriate affect, intact judgment & insight Results CBC & Chem 7: 02/01/22 09:36 02/01/22 09:36 Labs: Abnormal Lab Results - Last 24 Hours (Table) 01/31/22 02/01/22 02/01/22 Range/Units 20:33 06:05 09:36 RBC 3.04 L (4.30-5.90) m/uL Hgb 10.2 L (13.0-17.5) gm/dL Hct 30.7 L (39.0-53.0) % MCV 100.9 H (80.0-100.0) fL Sodium (137-145) mmol/L Chloride (98-107) mmol/L Carbon Dioxide (22-30) mmol/L BUN (9-20) mg/dL Glucose (74-99) mg/dL POC Glucose (mg/dL) 143 H 136 H (70-110) mg/dL Calcium (8.4-10.2) mg/dL 02/01/22 02/01/22 02/01/22 Range/Units 09:36 11:48 16:48 RBC (4.30-5.90) m/uL Hgb (13.0-17.5) gm/dL Hct (39.0-53.0) % MCV (80.0-100.0) fL Sodium 135 L (137-145) mmol/L Chloride 92 L (98-107) mmol/L Carbon Dioxide 36 H (22-30) mmol/L BUN 46 H (9-20) mg/dL Glucose 106 H (74-99) mg/dL POC Glucose (mg/dL) 158 H 131 H (70-110) mg/dL Calcium 8.2 L (8.4-10.2) mg/dL CT scan - chest: report reviewed CT Scan - head: report reviewed Assessment and Plan (1) Laryngeal cancer Current Visit: Yes Status: Acute Priority: High Code(s): C32.9 - MALIGNANT NEOPLASM OF LARYNX, UNSPECIFIED SNOMED Code(s): 290372552 Plan: Agree with rehab for pt. Will obtain medical records, op reports and pathology from Dr. Hawkins. Send for PD-L1 testing to if pt candidate for IO It is agreed that pt is not a candidate for chemotherapy. Pt is not a candidate for more aggressive surgery. Pt and understand that any treatment is palliative in nature. Pt and understand that if pt remains a resident of an ECF then he will not be able to have palliative treatment. If IO not an option pt and are already agreed that they would likely seek comfort only. Dr. Tonia Weathers will discuss options, risk and benefits with pt and when seen in ofc ater DC from rehab. They verbalized understanding and agree with plan. All questions answered to the best of my ability.
--- NOTE | 2022-02-02 09:39 | P.DS ---
Providers Date of admission: 01/22/22 17:37 Expected date of discharge: 02/02/22 Attending physician: Dominik Adams Consults: 01/22/22 17:13 Consult Physician Urgent Consulting Provider: Precious Swann Consult Reason/Comments: Hyponatremia, likely 2/2 chf exacerbation Do you want consulting provider notified?: Already Contacted 01/22/22 17:35 Consult Physician Routine Consulting Provider: [facility] Consult Reason/Comments: chf exacerbation Do you want consulting provider notified?: Yes, Notify in am Consult Physician Routine Consulting Provider: Gerald Gazra Consult Reason/Comments: CHF exacerbation, hyponatremia, trach dependent Do you want consulting provider notified?: Yes, Notify in am 01/28/22 14:51 Consult Physician Routine Consulting Provider: Anam Stallings Consult Reason/Comments: Eval for IPR Do you want consulting provider notified?: Yes 02/01/22 13:52 Consult Physician Routine Consulting Provider: Luis Antonio Rosenberg Consult Reason/Comments: Laryngeal cancer, no radiation Do you want consulting provider notified?: Yes Primary care physician: Gerald Garza Hospital Course: Final diagnosis Acute on Chronic CHF exacerbation. Preserved EF. Ejection fraction 50-55% Hypervolemic hyponatremia. Improving. Klebsiella species in the sputum culture. Possible contaminant. level is also low. Hyperthyroidism Chronic atrial fibrillation on Eliquis at home History of coronary artery disease status post CABG Hypertension Hyperlipidemia History of GERD History of shingles and left leg pain Malignant Laryngeal mass s/p prior tracheostomy and PEG tube DVT prophylaxis GI Prophylaxis Full code Discharge disposition Patient is being discharged in a stable condition with guarded prognosis to [facility]. Patient will follow-up with Dr. Duarte in the outpatient setting upon discharge. Patient is to follow-up with pulmonary, cardiology in the outpatient setting as scheduled. Patient will be following up with oncology outpatient once discharged from [facility]. Total time taken is greater than 35 minutes. Hospital course This is a 81-year-old male who was recently admitted with hyponatremia along with dyspnea and possible CHF exacerbation. Cardiology and pulmonary following closely and patient has transitioned oral Lasix. Medications have been adjusted per cardiology. Patient was seen and evaluated with treatment plan discussed with oncology during hospitalization and patient is agreeable to withhold all oncological treatment and follow-up outpatient with oncology team once discharged from [facility]. Goal is to gain some strength and mobility with aggressive physical therapy before discharge. is his caregiver and feels unable to care for him. Patient also to follow up with endocrine in the outpatient [facility]. Patient is continued on tube feedings along with tracheostomy and will continue regimen as mentioned below. Currently no reports of chest pain, worsening shortness of breath, or palpitations. Patient is afebrile. No reports of nausea or vomiting and patient is tolerating diet. Patient will be going to [facility]. Guarded prognosis. Physical exam: Gen: This is a 81-year-old male awake, alert and oriented 3, well-developed, well-nourished, elderly male HEENT: Head is atraumatic, normocephalic. Pupils equal, round. Sclerae is anicteric. NECK: Supple. No JVD. No lymphadenopathy. No thyromegaly. LUNGS: Manage breath sounds bilaterally with some scattered rhonchi noted. No intercostal retractions. HEART: S1, S2 are muffled ABDOMEN: Soft. Bowel sounds are present. No masses. No tenderness. EXTREMITIES: No pedal edema. No calf tenderness. Generalized lower extremity edema NEUROLOGICAL: Patient is awake, alert and oriented x2-3. Cranial nerves 2 through 12 are grossly intact. Diffusely weak Please refer to medication reconciliation sheet for a list of medications. The impression and plan of care has been dictated by Stacia Hearn, Nurse Practitioner as directed. Dr. Bryan MD I have performed a history and examination and MDM of this patient, discussed the same with the dictator, and agree with the dictator's assessment and plan a s written ,documented as a scribe. Based on total visit time, I have performed more than 50% of the visit. Patient Condition at Discharge: Fair Plan - Discharge Summary New Discharge Prescriptions: New Metoprolol Tartrate [Lopressor] 25 mg PO BID tab HYDROcodone/APAP 5-325MG [Mcroberts 5-325] 1 each PO Q6HR PRN #4 tab PRN Reason: Pain Cholestyramine (with Sugar) [Questran Packet] 4 gm PO BID@1000,1800 packet Acetaminophen Tab [Tylenol] 650 mg PO Q6HR PRN tab PRN Reason: Fever and/ or Mild Pain Lidocaine 5% Patch [Lidoderm 5% Patch] 1 patch TOPICAL DAILY patch methIMAzole [Tapazole] 5 mg PO TID tab Continue Primidone [Mysoline] 100 mg PEG/G-TUBE HS Latanoprost Ophth [Xalatan 0.005%] 1 drop BOTH EYES DAILY Omeprazole [PriLOSEC] 40 mg PO DAILY Timolol 0.5% Ophth Soln [Timoptic 0.5% Ophth Soln] 1 drop BOTH EYES DAILY Atorvastatin [Lipitor] 80 mg PEG/G-TUBE HS Primidone [Mysoline] 50 mg PEG/G-TUBE DAILY Tamsulosin HCl [Flomax] 0.4 mg PO HS Apixaban [Eliquis] 5 mg PEG/G-TUBE BID Amiodarone [Cordarone] 200 mg PEG/G-TUBE DAILY Pregabalin [Lyrica] 75 mg PO BID #4 cap ALPRAZolam [Xanax] 0.25 mg PEG/G-TUBE HS #4 tab ALPRAZolam [Xanax] 0.25 mg PEG/G-TUBE BID PRN #4 tab PRN Reason: Anxiety Changed Furosemide [Lasix] 20 mg PEG/G-TUBE BID #0 Discontinued Potassium Chloride [Klor-Con 20] 20 meq PEG/G-TUBE DAILY predniSONE See Taper PEG/G-TUBE DIRECTED Amoxic-Pot Clav 875-125Mg [Augmentin 875-125] 1 tab PEG/G-TUBE BID Propranolol [Inderal] 20 mg PEG/G-TUBE BID Discharge Medication List Primidone [Mysoline] 100 mg PEG/G-TUBE HS 08/01/15 [History] Latanoprost Ophth [Xalatan 0.005%] 1 drop BOTH EYES DAILY 03/26/19 [History] Omeprazole [PriLOSEC] 40 mg PO DAILY 03/26/19 [History] Atorvastatin [Lipitor] 80 mg PEG/G-TUBE HS 12/08/19 [History] Timolol 0.5% Ophth Soln [Timoptic 0.5% Ophth Soln] 1 drop BOTH EYES DAILY 12/08/19 [History] Amiodarone [Cordarone] 200 mg PEG/G-TUBE DAILY 01/22/22 [History] Apixaban [Eliquis] 5 mg PEG/G-TUBE BID 01/22/22 [History] Primidone [Mysoline] 50 mg PEG/G-TUBE DAILY 01/22/22 [History] Tamsulosin HCl [Flomax] 0.4 mg PO HS 01/22/22 [History] ALPRAZolam [Xanax] 0.25 mg PEG/G-TUBE BID PRN #4 tab 02/02/22 [Rx] ALPRAZolam [Xanax] 0.25 mg PEG/G-TUBE HS #4 tab 02/02/22 [Rx] Acetaminophen Tab [Tylenol] 650 mg PO Q6HR PRN tab 02/02/22 [Rx] Cholestyramine (with Sugar) [Questran Packet] 4 gm PO BID@1000,1800 packet 02/02/22 [Rx] Furosemide [Lasix] 20 mg PEG/G-TUBE BID #0 02/02/22 [Rx] HYDROcodone/APAP 5-325MG [Mcroberts 5-325] 1 each PO Q6HR PRN #4 tab 02/02/22 [Rx] Lidocaine 5% Patch [Lidoderm 5% Patch] 1 patch TOPICAL DAILY patch 02/02/22 [Rx] Metoprolol Tartrate [Lopressor] 25 mg PO BID tab 02/02/22 [Rx] Pregabalin [Lyrica] 75 mg PO BID #4 cap 02/02/22 [Rx] methIMAzole [Tapazole] 5 mg PO TID tab 02/02/22 [Rx] Follow up Appointment(s)/Referral(s): Gerald Garza MD [Primary Care Provider] - 1-2 days Fiordaliza Gleason MD [STAFF PHYSICIAN] - 2 Weeks Fredy Lindsay MD [REFERRING] - 10 Days ([facility], for your high thyroid hormone) [facility], [NON-STAFF] - Elise Duarte MD [STAFF PHYSICIAN] - 10 Days ([place], for your high thyroid hormone) Activity/Diet/Wound Care/Special Instructions: Patient is going to [facility] Activity as tolerated Continue current medications Follow-up outpatient with primary care provider Follow-up with cardiology outpatient Follow-up with pulmonary outpatient Patient is agreeable to withhold all oncological treatment and care during rehab and will be following up outpatient with oncology once discharged from [facility]. Continue tube feeds of Jevity 1.5 continuous with the goal of 50 and 1200 mL per day with continued free water flushes every 4 hours of 30 mL's and monitor closely for residual Continue with aspiration precautions of head of the bed elevated 30-45 Discharge Disposition: TRANSFER TO SNF/ECF
[2022-02-02] MEDS: AMIODARONE 200 MG TAB PEG/G-TUBE SCH (09:56)
[2022-02-02] MEDS: FUROSEMIDE 20 MG TAB PO SCH (09:56)
[2022-02-02] MEDS: PRIMIDONE 50 MG TAB PEG/G-TUBE SCH (09:56)
[2022-02-02] MEDS: METOPROLOL TARTRATE 25 MG TAB PO SCH (09:56)
[2022-02-02] MEDS: APIXABAN 5 MG TAB PEG/G-TUBE SCH (09:56)
[2022-02-02] MEDS: PREGABALIN 75 MG CAP PO SCH (09:56)
[2022-02-02] MEDS: PANTOPRAZOLE 40 MG TABLET PO SCH (09:56)
[2022-02-02] MEDS: methIMAzole 5 MG TAB PO SCH (09:56)
[2022-02-02] MEDS: LIDOCAINE 5% PATCH TOPICAL SCH (09:56)
[2022-02-02] MEDS: CHOLESTYRAMINE (WITH SUGAR) 4 GM PACKET PO SCH (09:56)
[2022-02-02] MEDS: LATANOPROST 0.005% OPHTH DROPS 2.5 ML BTL BOTH EYES SCH (09:57)
[2022-02-02] MEDS: TIMOLOL 0.5% OPHTH DROPS 5 ML BTL BOTH EYES SCH (09:57)
[2022-02-02 10:16] VITALS: TEMP 97.5
[2022-02-02 11:43] LABS: Glucose,Whole Blood 114 mg/dL (70-110)
[2022-02-02 12:11] VITALS: BP 130/97; PULSE 92
== END 2022-02-02 13:20 | DRG 643 ==
LOC: EC 14:15 → 3SCARD 17:37
PROVIDERS: ADMIT Hospitalist; ATTEND Hospitalist
PROC: 3E0H76Z Introduction of Nutritional Substance into Lower GI, Via Natural or Artificial Opening (ICD-10-PCS; principal; 2022-01-25)
DX: E22.2 Syndrome of inappropriate secretion of antidiuretic hormone (principal); I50.33 Acute on chronic diastolic (congestive) heart failure; G93.40 Encephalopathy, unspecified; R64 Cachexia; E87.3 Alkalosis; B02.29 Other postherpetic nervous system involvement; I48.21 Permanent atrial fibrillation; I48.92 Unspecified atrial flutter; J44.0 Chronic obstructive pulmonary disease with (acute) lower respiratory infection; I27.20 Pulmonary hypertension, unspecified; I11.0 Hypertensive heart disease with heart failure; C32.9 Malignant neoplasm of larynx, unspecified; F32.A Depression, unspecified; J61 Pneumoconiosis due to asbestos and other mineral fibers; I35.2 Nonrheumatic aortic (valve) stenosis with insufficiency; E05.90 Thyrotoxicosis, unspecified without thyrotoxic crisis or storm; J38.00 Paralysis of vocal cords and larynx, unspecified; Z93.0 Tracheostomy status; I95.9 Hypotension, unspecified; E87.8 Other disorders of electrolyte and fluid balance, not elsewhere classified; I71.21 Aneurysm of the ascending aorta, without rupture; M79.605 Pain in left leg; Z20.822 Contact with and (suspected) exposure to COVID-19; B96.1 Klebsiella pneumoniae [K. pneumoniae] as the cause of diseases classified elsewhere; B95.2 Enterococcus as the cause of diseases classified elsewhere; E78.5 Hyperlipidemia, unspecified; Z77.090 Contact with and (suspected) exposure to asbestos; E87.5 Hyperkalemia; K21.9 Gastro-esophageal reflux disease without esophagitis; R01.1 Cardiac murmur, unspecified; I25.10 Atherosclerotic heart disease of native coronary artery without angina pectoris; E86.1 Hypovolemia; R53.81 Other malaise; Z68.25 Body mass index [BMI] 25.0-25.9, adult; Z28.310 Unvaccinated for COVID-19; Z79.01 Long term (current) use of anticoagulants; Z93.1 Gastrostomy status; Z79.899 Other long term (current) drug therapy; Z86.73 Personal history of transient ischemic attack (TIA), and cerebral infarction without residual deficits; Z85.46 Personal history of malignant neoplasm of prostate; Z92.3 Personal history of irradiation; Z95.1 Presence of aortocoronary bypass graft; Z87.891 Personal history of nicotine dependence; Z86.19 Personal history of other infectious and parasitic diseases
CPT/HCPCS: 36415; 70450; 71045; 71046; 71260; 80048; 80053; 81003; 82533; 83605; 83735; 83880; 83930; 83935; 84133; 84145; 84295; 84300; 84439; 84443; 84484; 84550; 85025; 85610; 85730; 87040; 87070; 87077; 87186; 87205; 87635; 93005; 93306; 96374; 99291